=== PATIENT | male | born 1985 | race Caucasian/White ===

== ENCOUNTER → 2018-03-12 10:45 | Outpatient (CLI) | payer BC, SELFPAY | DX: L40.0 Psoriasis vulgaris (principal); Z79.899 Other long term (current) drug therapy | CPT/HCPCS: 36415 ==

== ENCOUNTER → 2018-09-09 11:09 | Outpatient (CLI) | payer BC, SELFPAY ==
[2018-09-09 13:51] LABS: Absolute Lymphocyte Count 1.41 X10^3/ul (0.83-4.51); Absolute Neutrophil Count 4.5 X10^3/uL (2.0-7.7); Basophil# 0.06 X10^3/uL; Basophil% 0.9 % (0-1); Eosinophil# 0.23 X10^3/uL; Eosinophils% 3.3 % (0-5); Hematocrit 38.6 % (40-54); Hemoglobin 12.5 g/dl (13.0-16.5); Lymphocyte # 1.41 X10^3/ul (4.0); Lymphocyte % 20.4 % (19-41); Mean Corp Hgb Conc 32.4 g/gl (32-36); Mean Corpuscular Hgb 27.8 pg (27.0-32.0); Mean Platelet Vol. 10.8 fl (6.2-12.0); Monocyte# 0.68 X10^3/uL; Monocyte% 9.8 % (0-10); Neutrophil # 4.49 X10^3/uL (2.7-7.7); Platelet Count 220 K/mm3 (150-450); RBC Distribution Width CV 13.3 % (11.6-14.6); RBC Distribution Width SD 40.9 fl (35.1-43.9); Red Blood Count 4.49 M/mm3 (4.6-6.2); White Blood Count 6.9 K/mm3 (4.4-11.0)
[2018-09-09 13:52] LABS: POSITIVE COUNT NO; POSITIVE DIFFERENTIAL NO; POSITIVE MORPHOLOGY NO
[2018-09-09 14:18] LABS: Anion Gap 6 (5-15); BUN 17 mg/dL (7-18); BUN/Creat Ratio 25.9 RATIO (10-20); Calcium,Total 8.6 mg/dL (8.5-10.1); Chloride 106 mmol/L (98-107); Creatinine, Serum 0.66 mg/dL (0.70-1.30); EST Glomerular Filtration Rate 149 mL/min (>60); Est Glom Filt Rate - Afr Amer 180 mL/min (>60); Glucose 86 mg/dL (74-106); Potassium 4.4 mmol/L (3.5-5.1); Sodium Level 141 mmol/L (136-145)
== END ==
PROVIDERS: Referring Provider Physician Assistant; Visit Provider Physician Assistant
DX: L40.0 Psoriasis vulgaris (principal); Z79.899 Other long term (current) drug therapy
CPT/HCPCS: 36415; 80048; 85025

== ENCOUNTER 2019-05-15 20:32 | Inpatient (IN) | payer BC, SELFPAY ==
[2019-05-15 20:36] VITALS: BP 185/98; PULSE 102; RESP 18; TEMP 37.8; O2SAT 97; BMI 72.5
[2019-05-15 21:37] VITALS: BP 158/77; PULSE 97; RESP 18; TEMP 37.4; O2SAT 98
[2019-05-15 21:46] LABS: Absolute Lymphocyte Count 1.05 X10^3/uL (0.83-4.51); Absolute Neutrophil Count 6.8 X10^3/uL (2.0-7.7); Basophil# 0.05 X10^3/uL; Basophil% 0.6 % (0-1); Eosinophil# 0.11 X10^3/uL; Eosinophils% 1.3 % (0-5); Hematocrit 36.7 % (40-54); Hemoglobin 11.8 g/dL (13.0-16.5); Lymphocyte # 1.05 X10^3/ul (4.0); Lymphocyte % 12.3 % (19-41); Mean Corp Hgb Conc 32.2 g/dL (32-36); Mean Corpuscular Hgb 28.2 pg (27.0-32.0); Mean Corpuscular Volume 87.6 fL (80-94); Mean Platelet Vol. 10.4 fl (6.2-12.0); Monocyte# 0.53 X10^3/uL; Monocyte% 6.2 % (0-10); NRBC Flagged by Analyzer 0 % (0-5); Neutrophil # 6.78 X10^3/uL (2.7-7.7); Platelet Count 196 K/mm3 (150-450); RBC Distribution Width CV 13.2 % (11.6-14.6); RBC Distribution Width SD 42.1 fl (35.1-43.9); Red Blood Count 4.19 M/mm3 (4.6-6.2); White Blood Count 8.6 K/mm3 (4.4-11.0)
[2019-05-15 21:55] LABS: Lactic Acid 1.3 mmol/L (0.4-1.9)
[2019-05-15 21:56] LABS: Anion Gap 5 (5-15); BUN 10 mg/dL (7-18); BUN/Creat Ratio 10.5 RATIO (10-20); Calcium,Total 8.7 mg/dL (8.5-10.1); Chloride 107 mmol/L (98-107); Creatinine, Serum 0.95 mg/dL (0.70-1.30); EST Glomerular Filtration Rate 96 mL/min (>60); Est Glom Filt Rate - Afr Amer 117 mL/min (>60); Estimated Creatinine Clearance 117.79 ml/min; Glucose 110 mg/dL (74-106); Potassium 3.9 mmol/L (3.5-5.1); Sodium Level 139 mmol/L (136-145)
--- NOTE | 2019-05-15 22:04 | ED.VISSUMM ---
- ER Visit Summary Date of Service: 05/15/19 Chief Complaint: Cellulitis History of Present Illness: The patient is a 33 M with right lower leg cellulitis that started 3 days ago. It started to the medial aspect and then progressed diffusely to his right lower leg. He is having fevers at home. He is not currently on antibiotics. Denies any history of this in the past. Physical Examination: Temperature 100, blood pressure 185/98 and heart rate 102. Patient has erythema to his right lower leg distal to the knee down through the ankle. Skin appears to be intact. No fluctuance or masses palpable. No crepitus. No necrosis. No skin sloughing. He is neurovascular intact distally. Test Results: Hemoglobin 11.8. Metabolic panel unremarkable. Lactate normal. Cultures pending. Emergency Department Course and Treatment: Patient has cellulitis with a fever. Heart rate 102. Septic work-up was pursued. Cultures pending. He was treated with Clinda. While evaluating and treating, his redness is spreading up his mid thigh and extending down into his foot. I believe the patient will benefit from IV antibiotics. I do not believe he will improve with oral antibiotics given the extensive nature of his cellulitis. He does not have necrosis or red flag features. Nothing to suggest abscess. I contacted the hospitalist. Treatment Plan: As above Disposition: Admission Impression: Right leg cellulitis This note was generated with [employer] dictation software. It may contain incorrect words, spelling, and punctuation that were not noted in review of the chart prior to signing ED Disposition - Plan for ED Patient: Referrals: Miguel Ángel Baird MD [Primary Care Provider] -
--- NOTE | 2019-05-15 22:50 | HP.PCM_ITS ---
Problem List (1) Cellulitis Status: Acute Qualifiers: Site of cellulitis: extremity Site of cellulitis of extremity: lower extremity Laterality: right Qualified Code(s): L03.115 - Cellulitis of right lower limb (2) ALICE (obstructive sleep apnea) Status: Chronic (3) Morbid obesity with BMI of 70 and over, adult Status: Chronic History of Present Illness Date of Admission: 05/15/19 Chief Complaint: Right lower extremity, swelling, erythema, fever, chills - 3 days The patient is a 33 year old M past medical history of ALICE, psoriasis who comes in with complaints of right lower extremity swelling, erythema, fever and chills. Patient has psoriasis all over his body, worse on his feet and soles. He usually gets cracks in his skin especially on his feet in the plantar surface from his psoriasis. He noticed redness of right leg as well as fever and chills. He has also vomited about twice today. No dizziness or chest pain or palpitations or diarrhea. He recently was treated for influenza by his primary care doctor. No more upper respiratory symptoms. Vitals in the ED showed temp 100.0F, HR 102, BP 185/98, RR 18, Spo2 98% on RA. WBC 8.6, Hb 11.8, Plt 196, BMP is unremarkable. Past Medical History Past Medical History (Chronic Problems): Chronic Problems ALICE (obstructive sleep apnea) (Chronic) Morbid obesity with BMI of 70 and over, adult (Chronic) Allergies PITTED FRUIT Allergy (Uncoded 05/15/19 20:38) Other Home Medications: Ambulatory Orders Medication Instructions Recorded NK 05/15/19 Surgical History: - - right knee surgery, hand surgery after trauma Psychiatric History: No pertinent psych hx Lives: Spouse/ Significant Other Smoking Status: Never smoker Tobacco Use: Non-smoker Alcohol: None Drugs: None - *Family History Maternal History Items: Diabetes Paternal History Items: Diabetes Sibling History Items: No pertinent history Review of Systems Constitutional: Reports: Chills, Fever, Malaise, Weakness, Fatigue. Denies: Anorexia, Weight Change Eyes: Denies: Blurred vision, Cataracts, Conjunctivae Inflammation, Pain, Redness HEENT: Denies: Difficulty Hearing, Difficulty Swallowing, Head Aches, Hearing Changes, Sinus Congestion, Sinus Drainage, Sore Throat Cardiovascular: Denies: Chest Pain, Claudication, Orthopnea, Palpitations, Paroxysmal Noc. Dyspnea Respiratory: Denies: Cough, Hemoptysis, Shortness of breath at rest, Shortness of breath upon exertion, Sputum production Gastrointestinal: Reports: Nausea, Vomiting. Denies: Abdominal Pain, Constipation, Hematemesis, Hematochezia Genitourinary: Denies: Dysuria, Incontinence, Nocturia Musculoskeletal: Denies: Joint Pain, Joint Tenderness Skin: Denies: Pruritis, Rash, Wounds Neurological: Denies: Difficulty swallowing, Focal weakness, Numbness, Tingling Psychiatric: Denies: Anxiety, Depression, Homicidal Ideations, Suicidal Ideations Hematologic/ Lymphatic: Denies: Easy Bruising, Easy Bleeding VTE Information - Inpt Only VTE Present on Admission: No VTE Pharm Prophylaxis ordered?: Yes Patient Problems: Active and Suspected Problems Cellulitis (Acute) - Physical Exam Vitals/I&O's: Vital Signs Temp Pulse Resp BP Pulse Ox 99.4 F H 97 18 158/77 H 98 05/15/19 21:37 05/15/19 21:37 05/15/19 21:37 05/15/19 21:37 05/15/19 21:37 Oxygen Delivery Method Room Air Weight: 235.868 kg Body Mass Index (BMI) 72.5 General: Alert, Oriented x3, Cooperative, No apparent distress, - - super morbidly obese HEENT: Atraumatic, PERRLA, EOMI, Normocephalic Oral: Moist Mucosa Neck: Supple Lungs: Clear to auscultation, Normal air movement Cardiovascular: Regular rate, Regular Rhythm, Normal S1, Normal S2, No murmurs Abdomen: Bowel Sounds Present, Soft, Non Tender, Non-Distended, No Hepato- splenomegaly Extremities: Edema - erythema of the right anteromedial leg, up the the proximal medial aspect of thight, warm to touch, crackles at the sole of feet Skin: No rashes, No breakdown Musculoskeletal: No Tenderness to Palpation of Joints or Extremities Lymphatic: No Cervical, Supraclavicular, or Inguinal Adenopathy Neurological: Cranial nerves II-XII grossly intact, Neuro grossly intact Psych/Mental Status: Normal Affect, Appropriate Laboratory Results 05/15/19 21:25: WBC 8.6, RBC 4.19 L, Hgb 11.8 L, Hct 36.7 L, MCV 87.6, MCH 28.2, MCHC 32.2, RDW Std Deviation 42.1, RDW Coeff of Yanni 13.2, Plt Count 196, MPV 10.4, Immature Gran % (Auto) 0.600, Neut % (Auto) 79.0 H, Lymph % (Auto) 12.3 L, [place] % (Auto) 6.2, Eos % (Auto) 1.3, Baso % (Auto) 0.6, Absolute Neuts (auto) 6.8, Absolute Lymphs (auto) 1.05, Nucleated RBC % 0 05/15/19 21:25: Sodium 139, Potassium 3.9, Chloride 107, Carbon Dioxide 27.0, Anion Gap 5, BUN 10, Creatinine 0.95, Estim Creat Clear Calc 117.79, Est GFR (MDRD) Af Amer 117, Est GFR (MDRD) Non-Af 96, BUN/Creatinine Ratio 10.5, Glucose 110 H, Calcium 8.7 05/15/19 21:25: Lactic Acid 1.3 Assessment/Plan All Active Problems Cellulitis (Acute) 33 year old M past medical history of ALICE, psoriasis who comes in with complaints of right lower extremity swelling, erythema, fever and chills. 1. Acute cellulitis in a patient with psoriasis, severe Likely nidus of infection are the cracks in feet especially on the plantar surface of right great toe Started on IV clindamycin Will switch to IV cefazolin 2g Q8, elevate extremity Will check HgbA1c 2. Uncontrolled BP, no diagnosis of hypertension, likely related to pain Will monitor for now, consider treatment if persistently elevated 3. ALICE on Bipap 4. Psoriasis 5. Super morbid obesity, BMI 72.5, lifestyle modification recommended, may qualify for bariatric surgery. 6. DVT PPx- Lovenox SC BID Code Visit Inpatient E&M: 58989 Init Hosp L2
[2019-05-15 23:19] VITALS: BP 157/90; PULSE 96; RESP 20; TEMP 38.8; O2SAT 100
[2019-05-15 23:20] VITALS: BMI 72.5
[2019-05-15 23:34] VITALS: BMI 72.5
[2019-05-15] MEDS: Cefazolin 2 GM in 0.9% Normal Saline 100 ML IV (23:41)
[2019-05-15] MEDS: 0.9% Normal Saline 1,000 ML 125 ML IV (23:42)
[2019-05-15] MEDS: Acetaminophen 325 MG Tablet 650 MG PO (23:42)
[2019-05-16] VITALS (10 sets, daily range): BP systolic 126–151; BP diastolic 69–88; PULSE 58–95; RESP 16–20; TEMP 36.5–37.3; O2SAT 95–99
[2019-05-16 00:06] LABS: Hemoglobin A1c 5.9 % (4.2-6.3)
[2019-05-16] MEDS: Cefazolin 2 GM in 0.9% Normal Saline 100 ML IV ×3 (05:30→22:54)
[2019-05-16] MEDS: Morphine 2 MG/ML Syringe IV (05:48)
[2019-05-16] MEDS: 0.9% Saline Lock 10 ML Syringe IV (05:52)
[2019-05-16 07:32] LABS: Absolute Lymphocyte Count 1.18 X10^3/uL (0.83-4.51); Absolute Neutrophil Count 6.9 X10^3/uL (2.0-7.7); Basophil# 0.05 X10^3/uL; Basophil% 0.5 % (0-1); Eosinophil# 0.17 X10^3/uL; Eosinophils% 1.8 % (0-5); Hematocrit 35.7 % (40-54); Hemoglobin 11.3 g/dL (13.0-16.5); Lymphocyte # 1.18 X10^3/ul (4.0); Lymphocyte % 12.8 % (19-41); Mean Corp Hgb Conc 31.7 g/dL (32-36); Mean Corpuscular Hgb 27.9 pg (27.0-32.0); Mean Corpuscular Volume 88.1 fL (80-94); Mean Platelet Vol. 10.6 fl (6.2-12.0); Monocyte# 0.87 X10^3/uL; Monocyte% 9.4 % (0-10); NRBC Flagged by Analyzer 0 % (0-5); Neutrophil # 6.88 X10^3/uL (2.7-7.7); Neutrophil % 74.5 % (47-70); Platelet Count 185 K/mm3 (150-450); RBC Distribution Width CV 13.3 % (11.6-14.6); Red Blood Count 4.05 M/mm3 (4.6-6.2); White Blood Count 9.2 K/mm3 (4.4-11.0)
[2019-05-16 08:02] LABS: ALB/GLOB Ratio 0.6 RATIO (0.9-2.4); AST(SGOT) 12 U/L (15-37); Alanine Aminotransfer ALT/SGPT 28 U/L (16-61); Albumin, Serum 2.7 g/dL (3.2-5.0); Alkaline Phosphatase 54 U/L (45-117); Anion Gap 5 (5-15); BUN 11 mg/dL (7-18); Calcium,Total 8.5 mg/dL (8.5-10.1); Chloride 109 mmol/L (98-107); Creatinine, Serum 0.85 mg/dL (0.70-1.30); EST Glomerular Filtration Rate 111 mL/min (>60); Est Glom Filt Rate - Afr Amer 134 mL/min (>60); Estimated Creatinine Clearance 131.65 ml/min; Globulin 4.2 g/dL (2.2-4.2); Glucose 96 mg/dL (74-106); Potassium 3.7 mmol/L (3.5-5.1); Protein, Total 6.9 g/dL (6.4-8.2); Sodium Level 139 mmol/L (136-145)
[2019-05-16] MEDS: 0.9% Normal Saline 1,000 ML 125 ML IV (08:28)
--- NOTE | 2019-05-16 10:41 | PCM.PN.HOSP ---
Patient Problems: Active and Suspected Problems Cellulitis (Acute) Subjective: Patient seen and examined. He was admitted with a complaint of swelling and redness of his RLE. He has psoriasis is largely well controlled on Stelara although he still has residual plaques on the soles of his feet. He said redness and swelling of his right lower extremity for 4 days prior to admission; he denies any trauma to his LEs, but says there plaques on his stools with clots. He had associated fever and chills but states is better now. Labs and vitals reviewed. Temperature is 99.1 this morning with pulse rate of 86 and respiratory rate of 16. white Cell count is 9.2. Vitals/I&O's: Vital Signs Temp Pulse Resp BP Pulse Ox 99.1 F 86 16 126/88 H 95 05/16/19 08:11 05/16/19 08:11 05/16/19 08:11 05/16/19 08:11 05/16/19 08:11 Oxygen Delivery Method Room Air Weight: 520 lb Body Mass Index (BMI) 72.5 Intake and Output for Last 24 Hours 05/14/19 05/15/19 05/16/19 23:59 23:59 23:59 Intake Total 56.08 / 56.08 1584.58 / 1584.58 Output Total 500 / 500 Balance 56.08 / 56.08 1084.58 / 1084.58 General: Alert, Oriented x3, Cooperative, No apparent distress, - - super morbid obesity HEENT: Atraumatic, PERRLA, EOMI, Normocephalic Oral: Moist Mucosa Neck: Supple, No JVD, Negative Carotid Bruits Lungs: Clear to auscultation, Normal air movement Cardiovascular: Regular rate, Regular Rhythm, Normal S1, Normal S2, No murmurs Abdomen: Bowel Sounds Present, Soft, Non Tender, Non-Distended, No Hepato-splenomegaly Skin: - - RLE erythematous from ankle to just below knee. scaly plaques on the soles of his feet, with cracks in skin on right sole. Musculoskeletal: No Tenderness to Palpation of Joints or Extremities Lymphatic: No Cervical, Supraclavicular, or Inguinal Adenopathy Neurological: Cranial nerves II-XII grossly intact, Neuro grossly intact, Motor Exam 5/5 strength throughout Psych/Mental Status: Normal Affect, Appropriate, Alert and oriented to time, place, person, mood and affect Laboratory Results 05/15/19 21:25: WBC 8.6, RBC 4.19 L, Hgb 11.8 L, Hct 36.7 L, MCV 87.6, MCH 28.2, MCHC 32.2, RDW Std Deviation 42.1, RDW Coeff of Yanni 13.2, Plt Count 196, MPV 10.4, Immature Gran % (Auto) 0.600, Neut % (Auto) 79.0 H, Lymph % (Auto) 12.3 L, [place] % (Auto) 6.2, Eos % (Auto) 1.3, Baso % (Auto) 0.6, Absolute Neuts (auto) 6.8, Absolute Lymphs (auto) 1.05, Nucleated RBC % 0 05/15/19 21:25: Sodium 139, Potassium 3.9, Chloride 107, Carbon Dioxide 27.0, Anion Gap 5, BUN 10, Creatinine 0.95, Estim Creat Clear Calc 117.79, Est GFR (MDRD) Af Amer 117, Est GFR (MDRD) Non-Af 96, BUN/Creatinine Ratio 10.5, Glucose 110 H, Calcium 8.7 05/15/19 21:25: Lactic Acid 1.3 05/15/19 21:25: Hemoglobin A1c 5.9 05/16/19 06:06: WBC 9.2, RBC 4.05 L, Hgb 11.3 L, Hct 35.7 L, MCV 88.1, MCH 27.9, MCHC 31.7 L, RDW Std Deviation 43.0, RDW Coeff of Yanni 13.3, Plt Count 185, MPV 10.6, Immature Gran % (Auto) 1.000 H, Neut % (Auto) 74.5 H, Lymph % (Auto) 12.8 L, [place] % (Auto) 9.4, Eos % (Auto) 1.8, Baso % (Auto) 0.5, Absolute Neuts (auto) 6.9, Absolute Lymphs (auto) 1.18, Nucleated RBC % 0 05/16/19 06:06: Sodium 139, Potassium 3.7, Chloride 109 H, Carbon Dioxide 25.0, Anion Gap 5, BUN 11, Creatinine 0.85, Estim Creat Clear Calc 131.65, Est GFR (MDRD) Af Amer 134, Est GFR (MDRD) Non-Af 111, BUN/Creatinine Ratio 13.0, Glucose 96, Calcium 8.5, Total Bilirubin 0.50, AST 12 L, ALT 28, Alkaline Phosphatase 54, Total Protein 6.9, Albumin 2.7 L, Globulin 4.2, Albumin/Globulin Ratio 0.6 L Current Medications Acetaminophen (Tylenol) 650 mg PO Q6H PRN PRN PRN Reason: Pain Score 1-3/Temp > 100.7 F Last Admin: 05/15/19 23:42 Dose: 650 mg Documented by: Al Hydroxide/Mg Hydroxide (Mylanta Ii) 30 ml PO Q6H PRN PRN PRN Reason: Gastric Burning Albuterol Sulfate (Ventolin Aerosols) 2.5 mg INHALATION Q2H PRN PRN PRN Reason: Shortness of Breath/Wheezing Enoxaparin Sodium (Lovenox) 40 mg SC BID [facility] Sodium Chloride () 1,000 mls @ 125 mls/hr IV .Q8H [facility] Stop: 05/16/19 11:03 Last Admin: 05/16/19 08:28 Dose: 125 mls/hr Documented by: Cefazolin Sodium 2 gm/ Sodium (Chloride) 110 mls @ 150 mls/hr IV Q8 [facility] Last Infusion: 05/16/19 06:22 Dose: Infused Documented by: Sodium Chloride () 250 mls @ 15 mls/hr IV .[id number] PRN PRN Reason: Saline Flush Sodium Chloride () 250 mls @ 15 mls/hr IV .[id number] PRN PRN Reason: Additional IVPB Infusion Morphine Sulfate () 2 mg IV Q3H PRN PRN PRN Reason: Pain Score 6-10/10 Last Admin: 05/16/19 05:48 Dose: 2 mg Documented by: Ondansetron HCl (Zofran) 4 mg IV Q8H PRN PRN PRN Reason: NAUSEA/VOMITING Oxycodone HCl (Oxyir) 5 mg PO Q4H PRN PRN PRN Reason: Pain Score 4-5/10 Sodium Chloride () 10 - 40 ml IV UD PRN PRN Reason: SALINE FLUSH Last Admin: 05/16/19 05:52 Dose: 10 ml Documented by: STROKE Vital Signs/Narrative: Vital Signs Temp Pulse Resp BP Pulse Ox 05/16/19 08:11 99.1 F 86 16 126/88 H 95 Medical Necessity - Tobacco Use Smoking Status: Never smoker Tobacco Use: Non-smoker Assessment/Plan All Active Problems Cellulitis (Acute) 1. Cellulitis of the RLE Patient has cellulitis and is likely that scratching his soles where he has the plaques it was a nidus for cellulitis. On IV cefazolin. Has no leukocytosis. Duplex of right lower extremity is pending. 2. Elevated blood pressure Has no known diagnosis of hypertension. Blood pressure on admission was 185/98 but has trended down to 126/88 this morning. Sinew monitoring. If blood pressure remains elevated, will consider starting blood pressure medication. 3. History of psoriasis: On Stelara once every 3 months. 4. ALICE: On BiPAP. 5. Super morbid obesity: BMI 72.5. Complicates acute care, expected recovery and prognosis. DVT Prophylaxis: Lovenox 40 mg twice daily. Code Visit Inpatient E&M: 32125 Subs Hosp L2
[2019-05-16] MEDS: Enoxaparin 40 MG/0.4 ML Syringe SC ×2 (11:17→22:54)
[2019-05-16] MEDS: Acetaminophen 325 MG Tablet 650 MG PO (17:29)
[2019-05-17] VITALS (9 sets, daily range): BP systolic 133–160; BP diastolic 80–91; PULSE 81–111; RESP 16; TEMP 36.8–37.4; O2SAT 96–100
[2019-05-17] MEDS: Acetaminophen 325 MG Tablet 650 MG PO ×3 (00:20→23:20)
[2019-05-17] MEDS: Cefazolin 2 GM in 0.9% Normal Saline 100 ML IV ×3 (05:37→22:00)
[2019-05-17 06:13] LABS: Absolute Lymphocyte Count 1.31 X10^3/uL (0.83-4.51); Absolute Neutrophil Count 6.1 X10^3/uL (2.0-7.7); Basophil# 0.05 X10^3/uL; Basophil% 0.6 % (0-1); Eosinophil# 0.25 X10^3/uL; Eosinophils% 2.8 % (0-5); Hemoglobin 10.9 g/dL (13.0-16.5); Lymphocyte # 1.31 X10^3/ul (4.0); Lymphocyte % 14.9 % (19-41); Mean Corp Hgb Conc 32.1 g/dL (32-36); Mean Corpuscular Hgb 27.9 pg (27.0-32.0); Mean Platelet Vol. 9.9 fl (6.2-12.0); Monocyte# 0.96 X10^3/uL; Monocyte% 10.9 % (0-10); NRBC Flagged by Analyzer 0 % (0-5); Neutrophil # 6.12 X10^3/uL (2.7-7.7); Neutrophil % 69.5 % (47-70); Platelet Count 184 K/mm3 (150-450); RBC Distribution Width CV 13.4 % (11.6-14.6); Red Blood Count 3.91 M/mm3 (4.6-6.2); White Blood Count 8.8 K/mm3 (4.4-11.0)
[2019-05-17 06:37] LABS: Anion Gap 7 (5-15); BUN 10 mg/dL (7-18); BUN/Creat Ratio 12.3 RATIO (10-20); Calcium,Total 8.5 mg/dL (8.5-10.1); Chloride 108 mmol/L (98-107); Creatinine, Serum 0.82 mg/dL (0.70-1.30); EST Glomerular Filtration Rate 115 mL/min (>60); Est Glom Filt Rate - Afr Amer 140 mL/min (>60); Estimated Creatinine Clearance 136.47 ml/min; Glucose 102 mg/dL (74-106); Potassium 3.7 mmol/L (3.5-5.1); Sodium Level 141 mmol/L (136-145)
--- NOTE | 2019-05-17 07:15 | VDLE_ITS ---
Reason For Study: Pain RIGHT GSV is normal. FV is compressible, spontaneous, phasic, competent and demonstrates normal augmentation. POP V is compressible, spontaneous, phasic, competent and demonstrates normal augmentation. T/P Trunk is compressible. CFV, SFJ, FV distal and PeroV not visualized due to pt body habitus. FV mid and PTV only visualized with color and appear patent. Procedure Exam performed portable in patient room. Limited views were obtained. The study was technically difficult. A preliminary report was called and/or faxed to MS3 RN. Interpretation Summary Right great saphenous vein appears patent and compressible segmentally. Very limited examination secondary to body habitus Right common femoral, distal femoral, peroneal deep veins and saphenofemoral junction not visualized. No evidence for deep venous thrombosis in structures seen. Ordering Physician: Delisa Dawson Referring Physician: Alex Baird Performed By: Vandana Capone RVT
[2019-05-17] MEDS: oxyCODONE 5 MG Tablet PO ×3 (09:42→23:19)
[2019-05-17] MEDS: Enoxaparin 40 MG/0.4 ML Syringe SC ×2 (09:43→22:00)
--- NOTE | 2019-05-17 11:20 | PCM.PN.HOSP ---
Patient Problems: Active and Suspected Problems Cellulitis (Acute) Subjective: Seen and examined. He states redness of his right lower extremity is improving but he does have calf pain. He denies any fever or chills and review of systems otherwise negative. Of note, duplex of right lower extremity ordered on admission 2 days ago was not done because according to charge nurse, order was not put in as a stat order. Order changed to start order today. Labs and vitals reviewed. Vitals/I&O's: Vital Signs Temp Pulse Resp BP Pulse Ox 99.1 F 84 16 160/91 H 97 05/17/19 09:40 05/17/19 09:40 05/17/19 09:40 05/17/19 09:40 05/17/19 09:40 Oxygen Delivery Method Room Air Weight: 520 lb 1.127 oz Body Mass Index (BMI) 72.5 Intake and Output for Last 24 Hours 05/15/19 05/16/19 05/17/19 23:59 23:59 23:59 Intake Total 56.08 / 56.08 2458.75 / 2458.75 110 / 110 Output Total 500 / 500 Balance 56.08 / 56.08 1958.75 / 1958.75 110 / 110 General: Alert, Oriented x3, Cooperative, No apparent distress, - - super morbid obesity HEENT: Atraumatic, PERRLA, EOMI, Normocephalic Oral: Moist Mucosa Neck: Supple, No JVD, Negative Carotid Bruits Lungs: Clear to auscultation, Normal air movement Cardiovascular: Regular rate, Regular Rhythm, Normal S1, Normal S2, No murmurs Abdomen: Bowel Sounds Present, Soft, Non Tender, Non-Distended, No Hepato-splenomegaly Skin: - - RLE erythematous from ankle to just below knee; erythema is improving. scaly plaques on the soles of his feet, with cracks in skin on right sole. Musculoskeletal: mild right calf tenderness with palpation Lymphatic: No Cervical, Supraclavicular, or Inguinal Adenopathy Neurological: Cranial nerves II-XII grossly intact, Neuro grossly intact, Motor Exam 5/5 strength throughout Psych/Mental Status: Normal Affect, Appropriate, Alert and oriented to time, place, person, mood and affect Laboratory Results 05/17/19 06:00: WBC 8.8, RBC 3.91 L, Hgb 10.9 L, Hct 34.0 L, MCV 87.0, MCH 27.9, MCHC 32.1, RDW Std Deviation 42.0, RDW Coeff of Yanni 13.4, Plt Count 184, MPV 9.9, Immature Gran % (Auto) 1.300 H, Neut % (Auto) 69.5, Lymph % (Auto) 14.9 L, [place] % (Auto) 10.9 H, Eos % (Auto) 2.8, Baso % (Auto) 0.6, Absolute Neuts (auto) 6.1, Absolute Lymphs (auto) 1.31, Nucleated RBC % 0 05/17/19 06:00: Sodium 141, Potassium 3.7, Chloride 108 H, Carbon Dioxide 26.0, Anion Gap 7, BUN 10, Creatinine 0.82, Estim Creat Clear Calc 136.47, Est GFR (MDRD) Af Amer 140, Est GFR (MDRD) Non-Af 115, BUN/Creatinine Ratio 12.3, Glucose 102, Calcium 8.5 Current Medications Acetaminophen (Tylenol) 650 mg PO Q6H PRN PRN PRN Reason: Pain Score 1-3/Temp > 100.7 F Last Admin: 05/17/19 00:20 Dose: 650 mg Documented by: Al Hydroxide/Mg Hydroxide (Mylanta Ii) 30 ml PO Q6H PRN PRN PRN Reason: Gastric Burning Albuterol Sulfate (Ventolin Aerosols) 2.5 mg INHALATION Q2H PRN PRN PRN Reason: Shortness of Breath/Wheezing Enoxaparin Sodium (Lovenox) 40 mg SC BID [facility] Last Admin: 05/17/19 09:43 Dose: 40 mg Documented by: Cefazolin Sodium 2 gm/ Sodium (Chloride) 110 mls @ 150 mls/hr IV Q8 [facility] Last Infusion: 05/17/19 06:21 Dose: Infused Documented by: Sodium Chloride () 250 mls @ 15 mls/hr IV .[id number] PRN PRN Reason: Saline Flush Sodium Chloride () 250 mls @ 15 mls/hr IV .[id number] PRN PRN Reason: Additional IVPB Infusion Morphine Sulfate () 2 mg IV Q3H PRN PRN PRN Reason: Pain Score 6-10/10 Last Admin: 01/11/20 05:48 Dose: 2 mg Documented by: Ondansetron HCl (Zofran) 4 mg IV Q8H PRN PRN PRN Reason: NAUSEA/VOMITING Oxycodone HCl (Oxyir) 5 mg PO Q4H PRN PRN PRN Reason: Pain Score 4-5/10 Last Admin: 05/17/19 09:42 Dose: 5 mg Documented by: Sodium Chloride () 10 - 40 ml IV UD PRN PRN Reason: SALINE FLUSH Last Admin: 05/16/19 05:52 Dose: 10 ml Documented by: STROKE Vital Signs/Narrative: Vital Signs Temp Pulse Resp BP Pulse Ox 05/17/19 09:40 99.1 F 84 16 160/91 H 97 Medical Necessity - Tobacco Use Smoking Status: Never smoker Tobacco Use: Non-smoker Assessment/Plan All Active Problems Cellulitis (Acute) 1. Cellulitis of the RLE redness is improving, but patient says he has pain in right calf today on IV cefazolin; no leucocytosis Duplex of RLE not done yet as it wasnt ordered stat on admission, in order to get it done on the weekend. will switch Duplex order to stat to rule out a PE- Duplex done today and is negative. 2. Elevated blood pressure Has no known diagnosis of hypertension. Blood pressure on admission was 185/98 BP is 160/91 this morning. BP has mainly been in 160s-180s systolic will start patient on PO amlodipine 10mg daily 3. History of psoriasis: On Stelara once every 3 months. 4. ALICE: On BiPAP. 5. Super morbid obesity: BMI 72.5. Complicates acute care, expected recovery and prognosis. DVT Prophylaxis: Lovenox 40 mg twice daily. Code Visit Inpatient E&M: 90910 Subs Hosp L2
[2019-05-17] MEDS: 0.9% Saline Lock 10 ML Syringe IV ×3 (13:47→22:03)
[2019-05-18 03:49] VITALS: PULSE 76
[2019-05-18] MEDS: Cefazolin 2 GM in 0.9% Normal Saline 100 ML IV (06:02)
[2019-05-18] MEDS: oxyCODONE 5 MG Tablet PO (06:02)
[2019-05-18] MEDS: Acetaminophen 325 MG Tablet 650 MG PO (06:02)
[2019-05-18] MEDS: 0.9% Saline Lock 10 ML Syringe IV (06:03)
[2019-05-18 06:04] LABS: Absolute Lymphocyte Count 1.49 X10^3/uL (0.83-4.51); Absolute Neutrophil Count 7.6 X10^3/uL (2.0-7.7); Basophil# 0.05 X10^3/uL; Basophil% 0.5 % (0-1); Eosinophil# 0.29 X10^3/uL; Eosinophils% 2.7 % (0-5); Hemoglobin 10.2 g/dL (13.0-16.5); Lymphocyte # 1.49 X10^3/ul (4.0); Lymphocyte % 13.8 % (19-41); Mean Corp Hgb Conc 31.9 g/dL (32-36); Mean Corpuscular Hgb 27.4 pg (27.0-32.0); Mean Platelet Vol. 9.6 fl (6.2-12.0); Monocyte# 1.05 X10^3/uL; Monocyte% 9.8 % (0-10); NRBC Flagged by Analyzer 0 % (0-5); Neutrophil # 7.57 X10^3/uL (2.7-7.7); Neutrophil % 70.3 % (47-70); Platelet Count 198 K/mm3 (150-450); RBC Distribution Width CV 13.6 % (11.6-14.6); RBC Distribution Width SD 42.9 fl (35.1-43.9); Red Blood Count 3.72 M/mm3 (4.6-6.2); White Blood Count 10.8 K/mm3 (4.4-11.0)
[2019-05-18 06:12] VITALS: BP 150/81; PULSE 85; RESP 16; TEMP 36.9; O2SAT 98
[2019-05-18 06:17] LABS: Anion Gap 6 (5-15); BUN 9 mg/dL (7-18); BUN/Creat Ratio 13.4 RATIO (10-20); Calcium,Total 8.5 mg/dL (8.5-10.1); Chloride 105 mmol/L (98-107); Creatinine, Serum 0.67 mg/dL (0.70-1.30); EST Glomerular Filtration Rate 144 mL/min (>60); Est Glom Filt Rate - Afr Amer 174 mL/min (>60); Estimated Creatinine Clearance 167.02 ml/min; Glucose 98 mg/dL (74-106); Potassium 3.9 mmol/L (3.5-5.1); Sodium Level 138 mmol/L (136-145)
--- NOTE | 2019-05-18 09:10 | DCINST_ITS ---
- Discharge Diagnoses Current Active Problems: Current Active and Chronic Problems Cellulitis (Acute) ALICE (obstructive sleep apnea) (Chronic) Morbid obesity with BMI of 70 and over, adult (Chronic) You will use the following diet at home:: No restrictions Discharge Activity: Return to Normal Activity Allergies/Adverse Reactions: Allergies PITTED FRUIT Allergy (Uncoded 05/15/19 20:38) Other Medications to take at Discharge Ustekinumab [Stelara] 90 mg IM 05/15/19 Cephalexin [Keflex] 500 mg PO Q6 #20 cap 05/18/19 The following prescriptions were given: Cephalexin [Keflex] 500 mg PO Q6 #20 cap Transmission Status: Pending to [facility]1954 [facility] Primary Care Physician: Miguel Ángel Baird MD [Primary Care Provider] - Please follow up with your Primary Care Physician in: in 2-3 days Test Results: Test results from this visit will be discussed in further detail at your follow- up appointment, if applicable. Proposed Discharge Date: 05/18/19
--- NOTE | 2019-05-18 09:12 | PCM.DC.SUM ---
Discharge Date and Diagnosis - Problem List Patient Problems: Active and Suspected Problems Cellulitis (Acute) Date of Admission: 05/15/19 Date of Discharge: 05/18/19 - Primary Discharge Diagnosis Active and Suspected Problems Cellulitis (Acute) - Secondary Discharge Diagnosis Chronic Problems ALICE (obstructive sleep apnea) (Chronic) Morbid obesity with BMI of 70 and over, adult (Chronic) Hospital Course and Treatment Summary of Care Provided: The patient is a 33 year old M erythema and warmth involving the right lower extremity 1. Cellulitis involving the right lower extremity ?Patient admitted to regular nursing floor managed with cefazolin. Underwent duplex ultrasound involving the right lower extremity which was negative for DVT. Patient did respond to treatment was discharged home on Keflex 500 mg p.o. 4 times daily for 5 more days. Patient was instructed to follow-up with his primary care physician in 2 to 3 days and to present back to the ED if his erythema worsened or he developed fever 2. Elevated blood pressure ?Patient also known hypertensive blood pressure was markedly elevated started on amlodipine 10 mg daily 3. History of psoriasis ?Patient is on Stelara and as outpatient 4. Morbid obesity with BMI of 72 ?Weight loss advised 5. Obstructive sleep apnea ?On BiPAP 6. DVT prophylaxis SC Lovenox 1 Patient Problems: Active and Suspected Problems Cellulitis (Acute) - Physical Exam Vitals/I&O's: Vital Signs Temp Pulse Resp BP Pulse Ox 98.5 F 85 16 150/81 H 98 05/18/19 06:12 05/18/19 06:12 05/18/19 06:12 05/18/19 06:12 05/18/19 06:12 Oxygen Delivery Method Room Air Weight: 235.9 kg Body Mass Index (BMI) 72.5 Intake and Output for Last 24 Hours 05/16/19 05/17/19 05/18/19 23:59 23:59 23:59 Intake Total 2458.75 / 2458.75 342.25 / 342.25 113.75 / 113.75 Output Total 500 / 500 Balance 1958.75 / 1958.75 342.25 / 342.25 113.75 / 113.75 General: Alert HEENT: Atraumatic Oral: Moist Mucosa Neck: Supple Cardiovascular: Regular rate Extremities: - - Erythema involving the right lower extremity Microbiology Past 72 Hours 05/15/19 21:45 Blood Culture (Wb) - Right Wrist Blood Culture - Preliminary No growth in 48 hours. 05/15/19 21:25 Blood Culture (Wb) - Anticubital Right Blood Culture - Preliminary No growth in 48 hours. Laboratory Results 05/18/19 05:45: WBC 10.8, RBC 3.72 L, Hgb 10.2 L, Hct 32.0 L, MCV 86.0, MCH 27.4, MCHC 31.9 L, RDW Std Deviation 42.9, RDW Coeff of Yanni 13.6, Plt Count 198, MPV 9.6, Immature Gran % (Auto) 2.900 H, Neut % (Auto) 70.3 H, Lymph % (Auto) 13.8 L, [place] % (Auto) 9.8, Eos % (Auto) 2.7, Baso % (Auto) 0.5, Absolute Neuts (auto) 7.6, Absolute Lymphs (auto) 1.49, Nucleated RBC % 0 05/18/19 05:45: Sodium 138, Potassium 3.9, Chloride 105, Carbon Dioxide 27.0, Anion Gap 6, BUN 9, Creatinine 0.67 L, Estim Creat Clear Calc 167.02, Est GFR (MDRD) Af Amer 174, Est GFR (MDRD) Non-Af 144, BUN/Creatinine Ratio 13.4, Glucose 98, Calcium 8.5 Current Medications Acetaminophen (Tylenol) 650 mg PO Q6H PRN PRN PRN Reason: Pain Score 1-3/Temp > 100.7 F Last Admin: 05/18/19 06:02 Dose: 650 mg Documented by: Al Hydroxide/Mg Hydroxide (Mylanta Ii) 30 ml PO Q6H PRN PRN PRN Reason: Gastric Burning Albuterol Sulfate (Ventolin Aerosols) 2.5 mg INHALATION Q2H PRN PRN PRN Reason: Shortness of Breath/Wheezing Enoxaparin Sodium (Lovenox) 40 mg SC BID [facility] Last Admin: 05/17/19 22:00 Dose: 40 mg Documented by: Cefazolin Sodium 2 gm/ Sodium (Chloride) 110 mls @ 150 mls/hr IV Q8 HEIKE Last Infusion: 05/18/19 06:46 Dose: Infused Documented by: Sodium Chloride () 250 mls @ 15 mls/hr IV .[id number] PRN PRN Reason: Saline Flush Last Infusion: 05/18/19 07:01 Dose: 0 mls/hr Documented by: Sodium Chloride () 250 mls @ 15 mls/hr IV .[id number] PRN PRN Reason: Additional IVPB Infusion Morphine Sulfate () 2 mg IV Q3H PRN PRN PRN Reason: Pain Score 6-10/10 Last Admin: 05/16/19 05:48 Dose: 2 mg Documented by: Ondansetron HCl (Zofran) 4 mg IV Q8H PRN PRN PRN Reason: NAUSEA/VOMITING Oxycodone HCl (Oxyir) 5 mg PO Q4H PRN PRN PRN Reason: Pain Score 4-5/10 Last Admin: 05/18/19 06:02 Dose: 5 mg Documented by: Sodium Chloride () 10 - 40 ml IV UD PRN PRN Reason: SALINE FLUSH Last Admin: 05/18/19 06:03 Dose: 20 ml Documented by: Discharge Diet: No Restrictions Discharge Activity: Return to Normal Activity Home Medications: Medications to take at Discharge Ustekinumab [Stelara] 90 mg IM 05/15/19 Amlodipine [Norvasc] 10 mg PO DAILY #90 tab 05/18/19 Cephalexin [Keflex] 500 mg PO Q6 #20 cap 05/18/19 Following Prescrptions Were Given to Patient: Cephalexin [Keflex] 500 mg PO Q6 #20 cap Transmission Status: Pending to [facility] Amlodipine [Norvasc] 10 mg PO DAILY #90 tab Transmission Status: Pending to [facility] Primary Care Physician: Miguel Ángel Baird MD [Primary Care Provider] - Please follow up with your Primary Care Physician in: in 2-3 days Disposition: Home Minutes spent on discharge:: 35 Patient Condition:: Stable Medical Necessity - Tobacco Use Smoking Status: Never smoker Tobacco Use: Non-smoker Meaningful Use Info Meaningful Use Diagnoses (Choose all that apply): None applicable Code Visit Inpatient E&M: 13949 Disch Hosp
[2019-05-18 09:54] VITALS: PULSE 88
--- NOTE | 2019-05-18 10:15 | CASEMGMT ---
RN SYDNIE Face to Face with patient for initial transition planning/care coordination assessment. RN CM introduced self and role at [facility]. Patient lying in bed, alert and oriented. Patient willing to participate in assessment and is able to answer all questions appropriately. Care providers, pharmacy, and demographics verified. Patient wishes to discharge home, denies need for home health at this time. Patient states he has no further needs or concerns at this time. CM to follow for discharge planning needs that may arise. PCP: Brie Specialists: [facility] Preferred Pharmacy: [facility] Insurance: [place] Prescription Benefit: yes Living Will/HPOA: none LNOK: Living Arrangements: Patient lives with in 1 story home. Patient independent at home. Transportation: self/ DME/HHC: Patient has bipap at home. Patient denies need for HHC. Disposition Plan: Patient to discharge home with family support and follow-up plans in place. Vandana IBANEZ, RN, CM
--- NOTE | 2019-05-18 10:39 | PCM.WORK.EX ---
Work/School Excuse Work/School Excuse for:: Patient Please excuse this person from:: Work From: 05/15/19 through: 05/21/19
[2019-05-18 11:24] VITALS: BP 152/93; PULSE 83; RESP 18; TEMP 36.2; O2SAT 98
== END 2019-05-18 11:58 | disposition home or self-care (01) | DRG 603 ==
LOC: ED 21:12 → MS3 22:58
PROVIDERS: Student in an Organized Health Care Education/Training Program; Admitting Provider Internal Medicine; Emergency Provider Emergency Medicine; Family Provider Family Medicine; PCP Family Medicine; Referring Provider Internal Medicine; Visit Provider Internal Medicine
DX: L03.115 Cellulitis of right lower limb (principal); Z68.45 Body mass index [BMI] 70 or greater, adult; L40.9 Psoriasis, unspecified; G47.33 Obstructive sleep apnea (adult) (pediatric); E66.01 Morbid (severe) obesity due to excess calories; I10 Essential (primary) hypertension
CPT/HCPCS: 36415; 80048; 80053; 83036; 83605; 85025; 87040; 93971; 97802; 99284; J7030; J7050; A4216

== ENCOUNTER 2019-08-29 10:49 | Inpatient (IN) | payer BC, SELFPAY ==
[2019-08-29] VITALS (8 sets, daily range): BP systolic 153–176; BP diastolic 68–94; PULSE 105–114; RESP 17–19; TEMP 37.1–39.5; O2SAT 95–100; BMI 73.0; BMI 73.1
[2019-08-29] MEDS: Acetaminophen 500 MG Tablet 1000 MG PO (11:11)
--- NOTE | 2019-08-29 11:27 | ED.DCSUM_ITS ---
- ER Visit Summary Date of Service: 08/29/19 Chief Complaint: Fever with right lower extremity redness History of Present Illness: The patient is a 33 M history of prior cellulitis with an admission in May of this year. Patient states he started getting a fever yesterday and noticed redness to his right lower extremity. He does have a history of psoriasis and is on Stelara. He denies any nausea vomiting or diarrhea. No cough. No dysuria. He is not diabetic. Physical Examination: Younger male no acute distress. Vital signs stable. Temperature 100.6. He does not look septic or toxic. He does not look dehydrated. H EENT exam unremarkable. Neck nontender. No lymphadenopathy. Lungs clear to auscultation bilaterally. Heart regular rhythm rate about 105 no murmur. Abdomen morbidly obese but soft. Nontender normal bowel sounds no peritoneal signs. Patient is moving all 4 extremities. He has mild swelling in his right lower extremity from below the knee to his foot. Consistent with cellulitis. There is really no tenderness. It is warm. It is slightly larger than the left leg. At present both lower extremities are neurovascular intact. Neurologically he is awake and alert with no focal motor deficits. Test Results: Patient's white blood cell count was 24,000. Hemoglobin 12. No bands. Chemistries potassium of 5.4. Gap of 9. Glucose 88. Creatinine 0.9. Lactic acid is 2.0. Blood cultures are pending. Emergency Department Course and Treatment: Patient appears to have recurrent cellulitis in his right lower extremity. Screening labs are being obtained. He will be started on cefazolin which she was treated with last time when he was hospitalized. Treatment Plan: Repeat exam patient is doing well at 1:40 PM. He will be admitted. I have already spoken to the hospitalist. Disposition: Admission Impression: Acute right lower extremity cellulitis Leukocytosis History of the same Fever Morbid obesity This note was generated with [employer] [employer] [facility] dictation software. It may contain incorrect words, spelling, and punctuation that were not noted in review of the chart prior to signing ED Disposition - Plan for ED Patient: Referrals: Miguel Ángel Baird MD [Primary Care Provider] -
[2019-08-29 12:44] LABS: Mean Corp Hgb Conc 32.4 g/dL (32-36); Mean Corpuscular Hgb 27.4 pg (27.0-32.0); Mean Corpuscular Volume 84.5 fL (80-94); Mean Platelet Vol. 10.3 fl (6.2-12.0); POSITIVE DIFFERENTIAL YES; POSITIVE MORPHOLOGY YES; Platelet Count 207 K/mm3 (150-450); RBC Distribution Width SD 43.3 fl (35.1-43.9); Red Blood Count 4.38 M/mm3 (4.6-6.2); White Blood Count 24.1 K/mm3 (4.4-11.0)
[2019-08-29] MEDS: Cefazolin 1 GM/50 ML BAG IV (12:46)
[2019-08-29 12:56] LABS: Anion Gap 9 (5-15); BUN 17 mg/dL (7-18); BUN/Creat Ratio 17.3 RATIO (10-20); Calcium,Total 9.3 mg/dL (8.5-10.1); Chloride 109 mmol/L (98-107); Creatinine, Serum 0.98 mg/dL (0.70-1.30); EST Glomerular Filtration Rate 93 mL/min (>60); Est Glom Filt Rate - Afr Amer 112 mL/min (>60); Estimated Creatinine Clearance 114.19 ml/min; Glucose 88 mg/dL (74-106); Potassium 5.4 mmol/L (3.5-5.1); Sodium Level 140 mmol/L (136-145)
[2019-08-29 12:58] LABS: Absolute Lymphocyte Count 0.96 X10^3/uL (0.83-4.51); Absolute Neutrophil Count 21.6 X10^3/uL (2.0-7.7); Basophil# 0.07 X10^3/uL; Basophil% 0.3 % (0-1); Differential Indicated SCAN CRITERIA MET; Eosinophil# 0.03 X10^3/uL; Eosinophils% 0.1 % (0-5); Lymphocyte # 0.96 X10^3/ul (4.0); Monocyte# 1.23 X10^3/uL; Monocyte% 5.1 % (0-10); Neutrophil # 21.63 X10^3/uL (2.7-7.7); Neutrophil % 89.8 % (47-70)
[2019-08-29 12:59] LABS: NRBC Flagged by Analyzer 0 % (0-5)
[2019-08-29 13:05] LABS: Differential Comment SCANNED
--- NOTE | 2019-08-29 13:37 | HP.PCM_ITS ---
Problem List (1) Cellulitis Status: Acute Qualifiers: Site of cellulitis: extremity Site of cellulitis of extremity: lower extremity Laterality: right Qualified Code(s): L03.115 - Cellulitis of right lower limb (2) Morbid obesity with BMI of 70 and over, adult Status: Chronic (3) ALICE (obstructive sleep apnea) Status: Chronic History of Present Illness Date of Admission: 08/29/19 Chief Complaint: Right lower extremity redness and warmth The patient is a 33 year old M with past medical history significant for morbid obesity with BMI of 73, psoriasis who presents with erythema and redness involving the right lower extremity. Patient symptoms started a day prior to coming in. In addition to the erythema and redness patient did experience subjective fever as well as chills. He was apparently on admission in May with similar presentation. In the emergency department and assessment of sepsis secondary to cellulitis involving the right lower extremity was made admitted to regular nursing floor for further management Past Medical History Past Medical History (Chronic Problems): Chronic Problems ALICE (obstructive sleep apnea) (Chronic) Morbid obesity with BMI of 70 and over, adult (Chronic) Allergies sulfamethoxazole [From Bactrim] Allergy (Verified 08/29/19 10:51) Hives trimethoprim [From Bactrim] Allergy (Verified 08/29/19 10:51) Hives PITTED FRUIT Allergy (Uncoded 08/29/19 10:51) SCRATCHY THROAT Home Medications: Ambulatory Orders Medication Instructions Recorded Ustekinumab [Stelara] 90 mg IM 05/15/19 Surgical History: - - right knee surgery, hand surgery after trauma Psychiatric History: No pertinent psych hx Smoking Status: Never smoker - *Family History Maternal History Items: Diabetes Paternal History Items: Diabetes Sibling History Items: No pertinent history Review of Systems Constitutional: Reports: Chills, Fever HEENT: Denies: Head Aches, Sinus Congestion, Sinus Drainage Cardiovascular: Denies: Chest Pain, Orthopnea, Palpitations, Paroxysmal Noc. Dyspnea Respiratory: Denies: Cough, Shortness of breath at rest, Shortness of breath upon exertion, Sputum production Gastrointestinal: Denies: Abdominal Pain, Hematemesis, Hematochezia, Nausea, Melena, Vomiting Genitourinary: Denies: Dysuria, Frequency, Hematuria, Urgency Skin: Reports: Skin Changes Neurological: Denies: Focal weakness, Numbness, Tingling Psychiatric: Denies: Homicidal Ideations, Suicidal Ideations Hematologic/ Lymphatic: Denies: Easy Bruising, Easy Bleeding VTE Information - Inpt Only VTE Present on Admission: No VTE Mechan Device Prophylaxis: None VTE Pharm Prophylaxis ordered?: Yes Objective: GENERAL: cooperative HEENT: Atraumatic; EYES; Anicteric, Normal Conjunctiva NECK; supple, normal thyroid, RESPIRATORY: Diminished to auscultation CARDIOVASCULAR: Regular S1 S2, GI: soft, normoactive bowel sounds, : No Renal angle tenderness; EXTREMITIES: Erythema and warmth involving the distal half of the right lower extremity MUSCULOSKELETAL: no muscle waisting NEURO: Awake; no lateralizing signs. SKIN: No Rash PSYCH; Flat affect - Physical Exam Vitals/I&O's: Vital Signs Temp Pulse Resp BP Pulse Ox 100.6 F H 108 H 17 173/94 H 100 08/29/19 10:51 08/29/19 10:51 08/29/19 10:51 08/29/19 10:51 08/29/19 10:51 Oxygen Delivery Method Room Air Weight: 237.7 kg Body Mass Index (BMI) 73.0 Laboratory Results 08/29/19 12:36: WBC 24.1 H, RBC 4.38 L, Hgb 12.0 L, Hct 37.0 L, MCV 84.5, MCH 27.4, MCHC 32.4, RDW Std Deviation 43.3, RDW Coeff of Yanni 14.0, Plt Count 207, MPV 10.3, Immature Gran % (Auto) 0.700, Neut % (Auto) 89.8 H, Lymph % (Auto) 4.0 L, [place] % (Auto) 5.1, Eos % (Auto) 0.1, Baso % (Auto) 0.3, Absolute Neuts (auto) 21.6 H, Absolute Lymphs (auto) 0.96, Nucleated RBC % 0, Differential Comment SCANNED 08/29/19 12:36: Sodium 140, Potassium 5.4 H, Chloride 109 H, Carbon Dioxide 22.0, Anion Gap 9, BUN 17, Creatinine 0.98, Estim Creat Clear Calc 114.19, Est GFR (MDRD) Af Amer 112, Est GFR (MDRD) Non-Af 93, BUN/Creatinine Ratio 17.3, Glucose 88, Calcium 9.3 08/29/19 12:36: Lactic Acid 2.0 Assessment/Plan All Active Problems Cellulitis (Acute) Patient is a 33-year-old gentleman presenting with erythema and warmth involving the right lower extremity 1. Sepsis secondary to cellulitis involving the right lower extremity ?Patient admitted to regular nursing floor managed with cefazolin as well as vancomycin after blood cultures were sent. Plan is to monitor patient with his daily vitals as well as monitor his markedly elevated WBC count. Lactic acid on admission was 2.0 2. History of psoriasis ?Patient is on Stelara and as outpatient 3. Morbid obesity with BMI of 73 ?Weight loss advised 4. Obstructive sleep apnea ?On CPAP at night plan is to continue with home settings 5. DVT prophylaxis - on enoxaparin Inpatient E&M: 21675 Init Hosp L3
[2019-08-29] MEDS: Lactated Ringers 1,000 ML 150 ML IV (15:00)
--- NOTE | 2019-08-29 15:30 | PHA.PHARE_ITS ---
Consult Pharmacy has been consulted to manage selected antiobiotic: Vancomycin Type of Consult: New start Suspected Infection: Sepsis, Skin/Soft tissue Labs: Sodium 140 mmol/L (136-145) 08/29/19 12:36 Potassium 5.4 mmol/L (3.5-5.1) H 08/29/19 12:36 Chloride 109 mmol/L (98-107) H 08/29/19 12:36 Carbon Dioxide 22.0 mmol/L (21.0-32.0) 08/29/19 12:36 Anion Gap 9 (5-15) 08/29/19 12:36 BUN 17 mg/dL (7-18) 08/29/19 12:36 Creatinine 0.98 mg/dL (0.70-1.30) 08/29/19 12:36 Est GFR (MDRD) Af Amer 112 mL/min (>60) 08/29/19 12:36 Est GFR (MDRD) Non-Af 93 mL/min (>60) 08/29/19 12:36 BUN/Creatinine Ratio 17.3 RATIO (10-20) 08/29/19 12:36 Glucose 88 mg/dL (74-106) 08/29/19 12:36 Weight used for dosin.7 kg Estimated Creatinine Clearance: >100ML/MIN Goal Trough: 15-20 mcg/mL Pharmacy Plan for Drug Dosing: Give initial loading dose of 2000mg IV x1, then continue with 1500mg IV q8h (per [facility] dosing protocol). A trough level will be ordered to be drawn before the 4th dose tomorrow. Pharmacy Service will continue to monitor and adjust dosing as required. Follow-Up Labs: Trough Vancomycin Labs to be done on [date and time ordered]: 08/30/19 14:30
[2019-08-29 16:41] LABS: Reflex Lactate? Y
[2019-08-29 17:57] LABS: Lactic Acid 1.2 mmol/L (0.4-1.9)
[2019-08-29] MEDS: Acetaminophen 325 MG Tablet 650 MG PO (18:20)
--- NOTE | 2019-08-29 18:25 | NURSING ---
This nurse in to check VS again. Fever of 103.1. Tylenol given and This nurse texted via [employer] Dr. Bobo to make him aware of temp, tylenol given and asked if we could repeat Lactic acid and if he wanted a bolus for the pt. Waiting promotional representative back.
--- NOTE | 2019-08-29 18:46 | NURSING ---
Dr. Bobo did not want to repeat Lactic Acid as it was recently drawn and it was 1.2 order to give 1L bolus and get blood cultures.
[2019-08-29] MEDS: 0.9% Normal Saline 1,000 ML 999 ML IV (18:59)
[2019-08-29] MEDS: 0.9% Saline Lock 10 ML Syringe IV (20:41)
[2019-08-29] MEDS: Enoxaparin 40 MG/0.4 ML Syringe SC (23:18)
[2019-08-30 02:15] VITALS: BP 138/71; PULSE 95; RESP 18; TEMP 37.2; O2SAT 97
[2019-08-30 06:33] LABS: Absolute Lymphocyte Count 1.27 X10^3/uL (0.83-4.51); Absolute Neutrophil Count 11.5 X10^3/uL (2.0-7.7); Basophil# 0.05 X10^3/uL; Basophil% 0.4 % (0-1); Eosinophil# 0.02 X10^3/uL; Eosinophils% 0.1 % (0-5); Hematocrit 33.7 % (40-54); Hemoglobin 10.7 g/dL (13.0-16.5); Lymphocyte # 1.27 X10^3/ul (4.0); Lymphocyte % 9.2 % (19-41); Mean Corp Hgb Conc 31.8 g/dL (32-36); Mean Corpuscular Hgb 27.6 pg (27.0-32.0); Mean Corpuscular Volume 87.1 fL (80-94); Mean Platelet Vol. 10.3 fl (6.2-12.0); Monocyte# 0.96 X10^3/uL; Monocyte% 6.9 % (0-10); NRBC Flagged by Analyzer 0 % (0-5); Neutrophil # 11.48 X10^3/uL (2.7-7.7); Neutrophil % 82.8 % (47-70); Platelet Count 147 K/mm3 (150-450); RBC Distribution Width CV 14.3 % (11.6-14.6); RBC Distribution Width SD 45.3 fl (35.1-43.9); Red Blood Count 3.87 M/mm3 (4.6-6.2); White Blood Count 13.9 K/mm3 (4.4-11.0)
[2019-08-30] MEDS: Lactated Ringers 1,000 ML 150 ML IV ×2 (06:36→22:33)
[2019-08-30 07:07] LABS: Anion Gap 8 (5-15); BUN 11 mg/dL (7-18); BUN/Creat Ratio 13.6 RATIO (10-20); Calcium,Total 8.3 mg/dL (8.5-10.1); Chloride 109 mmol/L (98-107); Creatinine, Serum 0.81 mg/dL (0.70-1.30); EST Glomerular Filtration Rate 116 mL/min (>60); Est Glom Filt Rate - Afr Amer 141 mL/min (>60); Estimated Creatinine Clearance 138.15 ml/min; Glucose 98 mg/dL (74-106); Potassium 3.4 mmol/L (3.5-5.1); Sodium Level 137 mmol/L (136-145); Thyroid Stim Hormone (TSH) 2.35 uIU/mL (0.358-3.74)
--- NOTE | 2019-08-30 07:17 | PCM.PN.HOSP ---
Reason for Visit: Sepsis secondary to cellulitis Subjective: Patient has more extensive area involving the right lower extremity with regards to his cellulitis. T-max for the past 24 hours 100.3. Still has significant elevated WBC count Patient is also hypokalemic Objective: GENERAL: cooperative HEENT: Atraumatic; EYES; Anicteric, Normal Conjunctiva NECK; supple, normal thyroid, RESPIRATORY: Diminished to auscultation CARDIOVASCULAR: Regular S1 S2, GI: soft, normoactive bowel sounds, : No Renal angle tenderness; EXTREMITIES: Erythema and warmth involving the distal half of the right lower extremity MUSCULOSKELETAL: no muscle waisting NEURO: Awake; no lateralizing signs. SKIN: No Rash PSYCH; Flat affect Vitals/I&O's: Vital Signs Temp Pulse Resp BP Pulse Ox 99.0 F 95 18 138/71 H 97 08/30/19 02:15 08/30/19 02:15 08/30/19 02:15 08/30/19 02:15 08/30/19 02:15 Oxygen Delivery Method Bi-pap Weight: 237.7 kg Body Mass Index (BMI) 73.0 Intake and Output for Last 24 Hours 08/28/19 08/29/19 08/30/19 23:59 23:59 23:59 Intake Total 2.5 / 1912.5 1292.5 / 1292.5 Balance 2.5 / 1912.5 1292.5 / 1292.5 Laboratory Results 08/29/19 12:36: WBC 24.1 H, RBC 4.38 L, Hgb 12.0 L, Hct 37.0 L, MCV 84.5, MCH 27.4, MCHC 32.4, RDW Std Deviation 43.3, RDW Coeff of Yanni 14.0, Plt Count 207, MPV 10.3, Immature Gran % (Auto) 0.700, Neut % (Auto) 89.8 H, Lymph % (Auto) 4.0 L, [place] % (Auto) 5.1, Eos % (Auto) 0.1, Baso % (Auto) 0.3, Absolute Neuts (auto) 21.6 H, Absolute Lymphs (auto) 0.96, Nucleated RBC % 0, Differential Comment SCANNED 08/29/19 12:36: Sodium 140, Potassium 5.4 H, Chloride 109 H, Carbon Dioxide 22.0, Anion Gap 9, BUN 17, Creatinine 0.98, Estim Creat Clear Calc 114.19, Est GFR (MDRD) Af Amer 112, Est GFR (MDRD) Non-Af 93, BUN/Creatinine Ratio 17.3, Glucose 88, Calcium 9.3 08/29/19 12:36: Lactic Acid 2.0 08/29/19 17:20: Lactic Acid 1.2 08/30/19 05:56: WBC 13.9 H, RBC 3.87 L, Hgb 10.7 L, Hct 33.7 L, MCV 87.1, MCH 27.6, MCHC 31.8 L, RDW Std Deviation 45.3 H, RDW Coeff of Yanni 14.3, Plt Count 147 L, MPV 10.3, Immature Gran % (Auto) 0.600, Neut % (Auto) 82.8 H, Lymph % (Auto) 9.2 L, [place] % (Auto) 6.9, Eos % (Auto) 0.1, Baso % (Auto) 0.4, Absolute Neuts (auto) 11.5 H, Absolute Lymphs (auto) 1.27, Nucleated RBC % 0 08/30/19 05:56: Sodium 137, Potassium 3.4 L, Chloride 109 H, Carbon Dioxide 20.0 L, Anion Gap 8, BUN 11, Creatinine 0.81, Estim Creat Clear Calc 138.15, Est GFR (MDRD) Af Amer 141, Est GFR (MDRD) Non-Af 116, BUN/Creatinine Ratio 13.6, Glucose 98, Calcium 8.3 L, TSH 2.35 Current Medications Acetaminophen (Tylenol) 650 mg PO Q6H PRN PRN PRN Reason: Pain Score 1-10/Temp > 100.7 F Last Admin: 08/29/19 18:20 Dose: 650 mg Documented by: Al Hydroxide/Mg Hydroxide (Mylanta Ii) 30 ml PO Q6H PRN PRN PRN Reason: Gastric Burning Albuterol Sulfate (Ventolin Aerosols) 2.5 mg INHALATION Q2H PRN PRN PRN Reason: Shortness of Breath/Wheezing Amlodipine Besylate (Norvasc) 10 mg PO DAILY [facility] Enoxaparin Sodium (Lovenox) 40 mg SC BID [facility] Last Admin: 08/29/19 23:18 Dose: 40 mg Documented by: Lactated Ringer's () 1,000 mls @ 150 mls/hr IV .[id number] [facility] Stop: 08/31/19 00:54 Last Infusion: 08/30/19 06:37 Dose: 0 mls/hr Documented by: Vancomycin IV Pharmacy to Dose (1 ea/ Sodium Chloride) 500 mls @ 250 mls/hr IV X1 PRN; Protocol PRN Reason: Rx to Dose Sodium Chloride () 250 mls @ 15 mls/hr IV .[id number] PRN PRN Reason: Saline Flush Sodium Chloride () 250 mls @ 15 mls/hr IV .[id number] PRN PRN Reason: Additional IVPB Infusion Vancomycin HCl 1,500 mg/ (Sodium Chloride) 530 mls @ 250 mls/hr IV Q8H [facility] Last Admin: 08/30/19 06:37 Dose: 250 mls/hr Documented by: Ceftriaxone Sodium 1 gm/ (Sodium Chloride) 50 mls @ 100 mls/hr IV Q12 [facility] Magnesium Hydroxide (Milk Of Magnesia) 30 ml PO DAILY PRN PRN PRN Reason: Constipation Melatonin (Melatonin) 3 mg PO QHS PRN PRN PRN Reason: INSOMNIA Ondansetron HCl (Zofran) 4 mg IV Q8H PRN PRN PRN Reason: NAUSEA/VOMITING Oxycodone HCl (Oxyir) 5 mg PO Q4H PRN PRN PRN Reason: Pain Score 4-5/10 Oxycodone HCl (Oxyir) 10 mg PO Q4H PRN PRN PRN Reason: Pain Score 6-10/10 Prochlorperazine Edisylate (Compazine Iv) 5 mg IV Q4H PRN PRN PRN Reason: Breakthrough nausea/vomiting Sodium Chloride () 10 - 40 ml IV UD PRN PRN Reason: SALINE FLUSH Last Admin: 08/29/19 20:41 Dose: 10 ml Documented by: Medical Necessity - Tobacco Use Smoking Status: Never smoker Assessment/Plan All Active Problems Cellulitis (Acute) Patient is a 33-year-old gentleman presenting with erythema and warmth involving the right lower extremity 1. Sepsis secondary to cellulitis involving the right lower extremity ?Patient admitted to regular nursing floor managed with cefazolin as well as vancomycin after blood cultures were sent. Plan is to monitor patient with his daily vitals as well as monitor his markedly elevated WBC count. Lactic acid on admission was 2.0 ?08/30/2019 patient has more extensive area involving the right lower extremity with regards to his cellulitis. T-max for the past 24 hours 100.3. Still has significant elevated WBC count 2. History of psoriasis ?Patient is on Stelara and as outpatient 3. Morbid obesity with BMI of 73 ?Weight loss advised 4. Obstructive sleep apnea ?On CPAP at night plan is to continue with home settings 5. DVT prophylaxis - on enoxaparin 6. Hypokalemia -corrected per protocol Inpatient E&M: 96324 [facility] Hosp L3
[2019-08-30 08:04] VITALS: O2SAT 96
[2019-08-30] MEDS: Ceftriaxone 1 GM/50 mL Premix Q24 IV ×2 (09:42→21:05)
[2019-08-30] MEDS: Enoxaparin 40 MG/0.4 ML Syringe SC ×2 (09:46→21:23)
[2019-08-30] MEDS: amLODIPine 10 MG Tablet PO (09:47)
[2019-08-30 10:07] VITALS: BP 134/80; PULSE 97; RESP 18; TEMP 37.4; O2SAT 96
[2019-08-30 15:18] VITALS: BP 136/90; PULSE 91; RESP 16; TEMP 36.9; O2SAT 98
[2019-08-30 15:34] LABS: Vancomycin, Trough Level 11.2 ug/mL (5.0-15.0)
--- NOTE | 2019-08-30 16:01 | PCM.RX.CS ---
Consult Pharmacy has been consulted to manage selected antiobiotic: Vancomycin Type of Consult: Follow-up Suspected Infection: Sepsis, Skin/Soft tissue Prior Doses of Antibiotics Received/Current Regimen: The patient is currently on vancomycin 1500mg IV q8h. Labs: Sodium 137 mmol/L (136-145) 08/30/19 05:56 Potassium 3.4 mmol/L (3.5-5.1) L 08/30/19 05:56 Chloride 109 mmol/L (98-107) H 08/30/19 05:56 Carbon Dioxide 20.0 mmol/L (21.0-32.0) L 08/30/19 05:56 Anion Gap 8 (5-15) 08/30/19 05:56 BUN 11 mg/dL (7-18) 08/30/19 05:56 Creatinine 0.81 mg/dL (0.70-1.30) 08/30/19 05:56 Est GFR (MDRD) Af Amer 141 mL/min (>60) 08/30/19 05:56 Est GFR (MDRD) Non-Af 116 mL/min (>60) 08/30/19 05:56 BUN/Creatinine Ratio 13.6 RATIO (10-20) 08/30/19 05:56 Glucose 98 mg/dL (74-106) 08/30/19 05:56 Vancomycin Trough 11.2 ug/mL (5.0-15.0) 08/30/19 14:30 Weight used for dosin.7 kg Estimated Creatinine Clearance: >100ml/min Goal Trough: 15-20 mcg/mL Pharmacy Plan for Drug Dosing: The vancomycin trough level drawn before this afternoon's dose resulted in a level of 11.2 mg/L (drawn 8 hours after the previous dose). This is short of the goal range of 15-20 so will increase dosing to 1750mg IV q8h to start with tonight's dose. Will check another trough before the 4th new dose tomorrow night. Pharmacy Service will continue to monitor and adjust dosing as required. Follow-Up Labs: Trough Vancomycin Labs to be done on [date and time ordered]: 08/31/19 22:30
[2019-08-30 20:50] VITALS: BP 140/67; PULSE 95; RESP 20; TEMP 36.6; O2SAT 98
[2019-08-30] MEDS: MELATONIN 3 MG TABLET PO (21:05)
[2019-08-31] MEDS: Psyllium 1 PACKET PO ×4 (02:13→22:07)
[2019-08-31 02:14] VITALS: BP 139/58; PULSE 90; RESP 18; TEMP 37.4; O2SAT 97
[2019-08-31 06:40] LABS: Absolute Lymphocyte Count 1.23 X10^3/uL (0.83-4.51); Absolute Neutrophil Count 5.5 X10^3/uL (2.0-7.7); Basophil# 0.05 X10^3/uL; Basophil% 0.7 % (0-1); Eosinophil# 0.16 X10^3/uL; Eosinophils% 2.1 % (0-5); Hematocrit 31.5 % (40-54); Hemoglobin 9.9 g/dL (13.0-16.5); Lymphocyte # 1.23 X10^3/ul (4.0); Lymphocyte % 16.1 % (19-41); Mean Corp Hgb Conc 31.4 g/dL (32-36); Mean Corpuscular Hgb 27.2 pg (27.0-32.0); Mean Corpuscular Volume 86.5 fL (80-94); Mean Platelet Vol. 10.2 fl (6.2-12.0); Monocyte# 0.71 X10^3/uL; Monocyte% 9.3 % (0-10); NRBC Flagged by Analyzer 0 % (0-5); Neutrophil # 5.45 X10^3/uL (2.7-7.7); Neutrophil % 71.1 % (47-70); Platelet Count 164 K/mm3 (150-450); RBC Distribution Width CV 13.9 % (11.6-14.6); RBC Distribution Width SD 43.6 fl (35.1-43.9); Red Blood Count 3.64 M/mm3 (4.6-6.2); White Blood Count 7.7 K/mm3 (4.4-11.0)
[2019-08-31 07:11] LABS: Anion Gap 4 (5-15); BUN 10 mg/dL (7-18); BUN/Creat Ratio 14.8 RATIO (10-20); Calcium,Total 8.3 mg/dL (8.5-10.1); Chloride 109 mmol/L (98-107); Creatinine, Serum 0.68 mg/dL (0.70-1.30); EST Glomerular Filtration Rate 143 mL/min (>60); Est Glom Filt Rate - Afr Amer 173 mL/min (>60); Estimated Creatinine Clearance 164.56 ml/min; Glucose 109 mg/dL (74-106); Potassium 3.6 mmol/L (3.5-5.1); Sodium Level 138 mmol/L (136-145)
[2019-08-31 07:30] VITALS: O2SAT 97
--- NOTE | 2019-08-31 09:19 | PCM.PN.HOSP ---
Reason for Visit: Follow-up on right leg cellulitis Subjective: Patient was seen and examined. Multiple attempts at placing IV access was unsuccessful. Denies any fever or chills. Redness and swelling in the lower extremity has improved. Vitals/I&O's: Vital Signs Temp Pulse Resp BP Pulse Ox 99.3 F H 90 18 139/58 H 97 08/31/19 02:14 08/31/19 02:14 08/31/19 02:14 08/31/19 02:14 08/31/19 07:30 Oxygen Delivery Method Room Air Weight: 237.7 kg Body Mass Index (BMI) 73.0 Intake and Output for Last 24 Hours 08/29/19 08/30/19 08/31/19 23:59 23:59 23:59 Intake Total 1911.5 / 1911.5 4050.00 / 4300.00 2137.5 / 2137.5 Output Total Balance 2.5 / 2.5 4050.00 / 4300.00 2136.5 / 2136.5 General: Alert, Oriented x3, Cooperative, No apparent distress, - - Super morbidly obese HEENT: Atraumatic, PERRLA, EOMI, Normocephalic Oral: Moist Mucosa Neck: Supple Lungs: Clear to auscultation, Normal air movement Cardiovascular: Regular rate, Regular Rhythm, Normal S1, Normal S2, No murmurs Abdomen: Bowel Sounds Present, Soft, Non Tender, Non-Distended, No Hepato-splenomegaly Extremities: - - Erythema of the right lower extremity from below the knee to the ankle, erythema is fading, not beyond the marked borders +1 bipedal edema Skin: - - See under extremity Musculoskeletal: No Tenderness to Palpation of Joints or Extremities Lymphatic: No Cervical, Supraclavicular, or Inguinal Adenopathy Neurological: Cranial nerves II-XII grossly intact, Neuro grossly intact Psych/Mental Status: Normal Affect, Appropriate Laboratory Results 08/30/19 14:30: Vancomycin Trough 11.2 08/31/19 06:31: WBC 7.7, RBC 3.64 L, Hgb 9.9 L, Hct 31.5 L, MCV 86.5, MCH 27.2, MCHC 31.4 L, RDW Std Deviation 43.6, RDW Coeff of Yanni 13.9, Plt Count 164, MPV 10.2, Immature Gran % (Auto) 0.700, Neut % (Auto) 71.1 H, Lymph % (Auto) 16.1 L, [place] % (Auto) 9.3, Eos % (Auto) 2.1, Baso % (Auto) 0.7, Absolute Neuts (auto) 5.5, Absolute Lymphs (auto) 1.23, Nucleated RBC % 0 08/31/19 06:31: Sodium 138, Potassium 3.6, Chloride 109 H, Carbon Dioxide 25.0, Anion Gap 4 L, BUN 10, Creatinine 0.68 L, Estim Creat Clear Calc 164.56, Est GFR (MDRD) Af Amer 173, Est GFR (MDRD) Non-Af 143, BUN/Creatinine Ratio 14.8, Glucose 109 H, Calcium 8.3 L Current Medications Acetaminophen (Tylenol) 650 mg PO Q6H PRN PRN PRN Reason: Pain Score 1-10/Temp > 100.7 F Last Admin: 08/29/19 18:20 Dose: 650 mg Documented by: Al Hydroxide/Mg Hydroxide (Mylanta Ii) 30 ml PO Q6H PRN PRN PRN Reason: Gastric Burning Albuterol Sulfate (Ventolin Aerosols) 2.5 mg INHALATION Q2H PRN PRN PRN Reason: Shortness of Breath/Wheezing Amlodipine Besylate (Norvasc) 10 mg PO DAILY [facility] Last Admin: 08/30/19 09:47 Dose: 10 mg Documented by: Enoxaparin Sodium (Lovenox) 40 mg SC BID [facility] Last Admin: 08/30/19 21:23 Dose: 40 mg Documented by: Vancomycin IV Pharmacy to Dose (1 ea/ Sodium Chloride) 500 mls @ 250 mls/hr IV X1 PRN; Protocol PRN Reason: Rx to Dose Sodium Chloride () 250 mls @ 15 mls/hr IV .[id number] PRN PRN Reason: Saline Flush Last Infusion: 08/30/19 21:05 Dose: 0 mls/hr Documented by: Sodium Chloride () 250 mls @ 15 mls/hr IV .[id number] PRN PRN Reason: Additional IVPB Infusion Ceftriaxone Sodium (Rocephin) 1 gm in 50 mls @ 100 mls/hr IV Q12 [facility] Last Infusion: 08/30/19 21:35 Dose: Infused Documented by: Vancomycin HCl 1,750 mg/ (Sodium Chloride) 535 mls @ 250 mls/hr IV Q8H [facility] Last Infusion: 08/31/19 00:42 Dose: Infused Documented by: Magnesium Hydroxide (Milk Of Magnesia) 30 ml PO DAILY PRN PRN PRN Reason: Constipation Melatonin (Melatonin) 3 mg PO QHS PRN PRN PRN Reason: INSOMNIA Last Admin: 08/30/19 21:05 Dose: 3 mg Documented by: Ondansetron HCl (Zofran) 4 mg IV Q8H PRN PRN PRN Reason: NAUSEA/VOMITING Oxycodone HCl (Oxyir) 5 mg PO Q4H PRN PRN PRN Reason: Pain Score 4-5/10 Oxycodone HCl (Oxyir) 10 mg PO Q4H PRN PRN PRN Reason: Pain Score 6-10/10 Prochlorperazine Edisylate (Compazine Iv) 5 mg IV Q4H PRN PRN PRN Reason: Breakthrough nausea/vomiting Psyllium Hydrophilic Mucilloid (Metamucil) 1 packet PO TID [facility] Last Admin: 08/31/19 06:47 Dose: 1 packet Documented by: Sodium Chloride () 10 - 40 ml IV UD PRN PRN Reason: SALINE FLUSH Last Admin: 08/29/19 20:41 Dose: 10 ml Documented by: STROKE Vital Signs/Narrative: Vital Signs Pulse Ox 08/31/19 07:30 97 Medical Necessity - Tobacco Use Smoking Status: Never smoker Assessment/Plan All Active Problems Cellulitis (Acute) 1. Sepsis secondary to right lower extremity cellulitis, improving No fevers overnight, WBC count is normal Right lower extremity cellulitis appears to be improving/fading Was on IV ceftriaxone and vancomycin Cannot get IV access We will switch to cefdinir 300mg po bid 2. Hypokalemia, resolved 3. Hypertension, controlled, continue amlodipine, lisinopril 4. Super morbid obesity, BMI 73.1, lifestyle modification as well as weight loss recommended 5. ALICE, on CPAP 6. History of psoriasis, on Stelara in the outpatient 7. DVT prophylaxis with Lovenox subcu 8. Disposition: Possible DC in am if improved Inpatient E&M: 11601 Subs Hosp L2
--- NOTE | 2019-08-31 10:10 | CASEMGMT ---
RN CM Face to Face with patient for initial transition planning/care coordination assessment. RN CM introduced self and role at [facility]. Patient sitting at edge of bed, alert and oriented. Patient willing to participate in assessment and is able to answer all questions appropriately. Care providers, pharmacy, and demographics verified. Patient wishes to discharge home, denies need for home health at this time. Patient states he has no further needs or concerns at this time. CM to follow for discharge planning needs that may arise. PCP: Brie Specialists: [facility] Preferred Pharmacy: [facility] Insurance: [employer] Prescription Benefit: yes Living Will/HPOA: none LNOK: Living Arrangements: Patient lives with in single story home with 3 steps and railing to enter the home. Patient states he is independent at home. Transportation: self/ DME/HHC: Patient states he has bipap at home. Patient denies need for additional DME at this time. Disposition Plan: Patient to discharge home with family support and follow-up plans in place. Vandana IBANEZ, RN, CM
[2019-08-31 10:42] VITALS: BP 145/72; PULSE 78; RESP 18; TEMP 37.1; O2SAT 98
[2019-08-31] MEDS: Cefdinir 300 MG Capsule PO ×2 (10:43→22:08)
[2019-08-31] MEDS: amLODIPine 10 MG Tablet PO (10:44)
[2019-08-31] MEDS: Enoxaparin 40 MG/0.4 ML Syringe SC ×2 (10:44→22:10)
[2019-08-31 15:41] VITALS: BP 143/84; PULSE 84; RESP 18; TEMP 36.8; O2SAT 98
[2019-08-31 21:52] VITALS: BP 117/59; PULSE 94; RESP 18; TEMP 36.9; O2SAT 96
[2019-09-01 04:15] VITALS: BP 128/69; PULSE 79; RESP 18; TEMP 36.8; O2SAT 97
[2019-09-01] MEDS: Psyllium 1 PACKET PO (05:30)
[2019-09-01 07:50] VITALS: O2SAT 96
[2019-09-01 09:18] VITALS: BP 144/98; PULSE 75; RESP 18; TEMP 36.7; O2SAT 98
[2019-09-01] MEDS: Enoxaparin 40 MG/0.4 ML Syringe SC (09:20)
[2019-09-01] MEDS: amLODIPine 10 MG Tablet PO (09:20)
[2019-09-01] MEDS: Cefdinir 300 MG Capsule PO (09:20)
--- NOTE | 2019-09-01 11:05 | DCINST_ITS ---
- Discharge Diagnoses Reason(s) for Visit for Discharge Instructions: Sepsis secondary to Left leg cellulitis You will use the following diet at home:: Cardiac Your food should be the consistency of: Regular Your liquids should be the consistency of: Regular/Thin Discharge Activity: Return to Normal Activity Instructions: Cellulitis, Cellulitis - Causes,Symptoms,Treating Additional Instructions: Complete your antibiotics. 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 Follow-up with your primary care doctor within 1-2 weeks. Continue to elevate your right lower leg. Allergies/Adverse Reactions: Allergies sulfamethoxazole [From Bactrim] Allergy (Verified 08/29/19 14:40) Hives trimethoprim [From Bactrim] Allergy (Verified 08/29/19 14:40) Hives PITTED FRUIT Allergy (Uncoded 08/29/19 14:40) SCRATCHY THROAT Medications to take at Discharge Ustekinumab [Stelara] 90 mg IM 05/15/19 Amlodipine [Norvasc] 10 mg PO DAILY 30 Days #30 tab 09/01/19 Cefdinir [Omnicef [equiv]] 300 mg PO Q12 7 Days #14 cap 09/01/19 The following prescriptions were given: Amlodipine [Norvasc] 10 mg PO DAILY 30 Days #30 tab Transmission Status: [facility] [address] Cefdinir [Omnicef [equiv]] 300 mg PO Q12 7 Days #14 cap Transmission Status: Pending to [facility] [address] Primary Care Physician: Miguel Ángel Baird MD [Primary Care Provider] - Please follow up with your Primary Care Physician in: within 1-2 weeks Test Results: Test results from this visit will be discussed in further detail at your follow- up appointment, if applicable. Proposed Discharge Date: 09/01/19
--- NOTE | 2019-09-01 11:08 | PCM.DC.SUM ---
Discharge Date and Diagnosis Date of Admission: 08/29/19 Date of Discharge: 09/01/19 - Primary Discharge Diagnosis Sepsis secondary to right lower extremity cellulitis Hypokalemia - Secondary Discharge Diagnosis Chronic Problems ALICE (obstructive sleep apnea) (Chronic) Morbid obesity with BMI of 70 and over, adult (Chronic) Hospital Course and Treatment None Operations: None Procedures: None Summary of Care Provided: The patient is a 33 year old M with past medical history of super morbid obesity, ALICE, psoriasis who comes with redness of the right lower extremity which started 1 day prior to admission. Patient was admitted to the [facility] floor as sepsis secondary to right lower extremity cellulitis and started on IV antibiotics. He had hypokalemia that was replaced. He was also found to be hypertensive and was started on amlodipine and lisinopril. Was managed on IV Zosyn with vancomycin. He continued to improve and was discharged home on cefdinir to complete 10 days of treatment. He knows to follow-up with his primary doctor within 1 week for evaluation of his cellulitis Subjective: On the day of discharge, he denied any complains. He feels much improved. Denied any fever or chills. Objective: Physical exam: General: Alert, Oriented x3, Cooperative, No apparent distress, - - Super morbidly obese HEENT: Atraumatic, PERRLA, EOMI, Normocephalic Oral: Moist Mucosa Neck: Supple Lungs: Clear to auscultation, Normal air movement Cardiovascular: Regular rate, Regular Rhythm, Normal S1, Normal S2, No murmurs Abdomen: Bowel Sounds Present, Soft, Non Tender, Non-Distended, No Hepato-splenomegaly Extremities: - - Erythema of the right lower extremity from below the knee to the ankle, erythema is fading, not beyond the marked borders +1 bipedal edema Skin: - - See under extremity Musculoskeletal: No Tenderness to Palpation of Joints or Extremities Lymphatic: No Cervical, Supraclavicular, or Inguinal Adenopathy Neurological: Cranial nerves II-XII grossly intact, Neuro grossly intact Psych/Mental Status: Normal Affect, Appropriate - Physical Exam Vitals/I&O's: Vital Signs Temp Pulse Resp BP Pulse Ox 98.1 F 75 18 144/98 H 98 09/01/19 09:18 09/01/19 09:18 09/01/19 09:18 09/01/19 09:18 09/01/19 09:18 Oxygen Delivery Method Room Air Weight: 237.7 kg Body Mass Index (BMI) 73.0 Intake and Output for Last 24 Hours 08/30/19 08/31/19 09/01/19 23:59 23:59 23:59 Intake Total 4050.00 / 4300.00 2537.5 / 2537.5 Output Total Balance 4050.00 / 4300.00 2536.5 / 2536.5 Microbiology Past 72 Hours 08/29/19 12:59 Blood Culture (Wb) - Left Wrist Blood Culture - Preliminary No growth in 48 hours. 08/29/19 11:45 Blood Culture (Wb) - Anticubital Left Blood Culture - Preliminary No growth in 48 hours. Current Medications Acetaminophen (Tylenol) 650 mg PO Q6H PRN PRN PRN Reason: Pain Score 1-10/Temp > 100.7 F Last Admin: 08/29/19 18:20 Dose: 650 mg Documented by: Al Hydroxide/Mg Hydroxide (Mylanta Ii) 30 ml PO Q6H PRN PRN PRN Reason: Gastric Burning Albuterol Sulfate (Ventolin Aerosols) 2.5 mg INHALATION Q2H PRN PRN PRN Reason: Shortness of Breath/Wheezing Amlodipine Besylate (Norvasc) 10 mg PO DAILY [facility] Last Admin: 09/01/19 09:20 Dose: 10 mg Documented by: Cefdinir (Omnicef [Equiv]) 300 mg PO Q12 [facility] Last Admin: 09/01/19 09:20 Dose: 300 mg Documented by: Enoxaparin Sodium (Lovenox) 40 mg SC BID [facility] Last Admin: 09/01/19 09:20 Dose: 40 mg Documented by: Sodium Chloride () 250 mls @ 15 mls/hr IV .[id number] PRN PRN Reason: Saline Flush Last Infusion: 08/31/19 10:47 Dose: Infused Documented by: Sodium Chloride () 250 mls @ 15 mls/hr IV .[id number] PRN PRN Reason: Additional IVPB Infusion Magnesium Hydroxide (Milk Of Magnesia) 30 ml PO DAILY PRN PRN PRN Reason: Constipation Melatonin (Melatonin) 3 mg PO QHS PRN PRN PRN Reason: INSOMNIA Last Admin: 08/30/19 21:05 Dose: 3 mg Documented by: Ondansetron HCl (Zofran) 4 mg IV Q8H PRN PRN PRN Reason: NAUSEA/VOMITING Oxycodone HCl (Oxyir) 5 mg PO Q4H PRN PRN PRN Reason: Pain Score 4-5/10 Oxycodone HCl (Oxyir) 10 mg PO Q4H PRN PRN PRN Reason: Pain Score 6-10/10 Prochlorperazine Edisylate (Compazine Iv) 5 mg IV Q4H PRN PRN PRN Reason: Breakthrough nausea/vomiting Psyllium Hydrophilic Mucilloid (Metamucil) 1 packet PO TID [facility] Last Admin: 09/01/19 05:30 Dose: 1 packet Documented by: Sodium Chloride () 10 - 40 ml IV UD PRN PRN Reason: SALINE FLUSH Last Admin: 08/29/19 20:41 Dose: 10 ml Documented by: Discharge Diet: Low fat/ Low Cholesterol, 2000 mg Sodium Diet Discharge Activity: Return to Normal Activity Home Medications: Medications to take at Discharge Ustekinumab [Stelara] 90 mg IM 05/15/19 Amlodipine [Norvasc] 10 mg PO DAILY 30 Days #30 tab 09/01/19 Cefdinir [Omnicef [equiv]] 300 mg PO Q12 7 Days #14 cap 09/01/19 Following Prescrptions Were Given to Patient: Amlodipine [Norvasc] 10 mg PO DAILY 30 Days #30 tab [facility] Status: [facility] Cefdinir [Omnicef [equiv]] 300 mg PO Q12 7 Days #14 cap Transmission Status: Received by [facility] Primary Care Physician: Miguel Ángel Baird MD [Primary Care Provider] - Please follow up with your Primary Care Physician in: within 1-2 weeks Patient Instructions: Cellulitis, Cellulitis - Causes,Symptoms,Treating Disposition: Home Minutes spent on discharge:: 40 Patient Condition:: Stable Medical Necessity - Tobacco Use Smoking Status: Never smoker Tobacco Use: Non-smoker Meaningful Use Info Meaningful Use Diagnoses (Choose all that apply): None applicable Inpatient E&M: 62123 [facility] Hosp
== END 2019-09-01 11:53 | disposition home or self-care (01) | DRG 872 ==
LOC: ED 11:49 → MS3 13:56
PROVIDERS: Admitting Provider Internal Medicine; Emergency Provider Emergency Medicine; PCP Family Medicine; Visit Provider Internal Medicine
DX: A41.9 Sepsis, unspecified organism (principal); L03.115 Cellulitis of right lower limb; Z68.45 Body mass index [BMI] 70 or greater, adult; E87.6 Hypokalemia; E66.01 Morbid (severe) obesity due to excess calories; G47.33 Obstructive sleep apnea (adult) (pediatric); L40.9 Psoriasis, unspecified; I10 Essential (primary) hypertension; Z83.3 Family history of diabetes mellitus
CPT/HCPCS: 36415; 80048; 80202; 83605; 84443; 85025; 87040; 96365; 99285; J7030; J7040; J7050; J7120; A4216; J0696

== ENCOUNTER 2020-01-30 14:12 | Inpatient (IN) | payer BC, SELFPAY ==
[2019-08-29 14:16] VITALS: BMI 73.0
[2020-01-30 14:14] VITALS: BP 207/106; PULSE 122; RESP 22; TEMP 37.9; O2SAT 97; BMI 71.8
--- NOTE | 2020-01-30 14:25 | ED.VISSUMM ---
- ER Visit Summary Date of Service: 01/30/20 Chief Complaint: [Concern for cellulitis] History of Present Illness: The patient is a 34 M [presents to the emergency department thinking he has cellulitis. Patient states that he developed a fever around noon as well as chills. Patient has had cellulitis 2 other times this year to the right leg typically. Patient denies any cough, sore throat, or body aches. No exposures to COVID-19. Patient is scheduled to have weight loss surgery in February of this year. He is not diabetic.] Physical Examination: [HEENT-PERRLA, EOMI. Cranial nerves II through XII grossly intact. TMs clear. Mucous membranes moist. No adenopathy. Cardiovascular-regular rate and rhythm without murmur or ectopy Lungs-clear to auscultation, chest wall stable without crepitus or subcu emphysema Abdomen-normoactive bowel sounds, soft, nontender, no rebound or rigidity, no peritoneal signs. Extremities-intact ?4, normal range of motion, normal pulses, atraumatic. Evaluation of the right leg reveals some subtle faint erythema when compared to the opposite side. Patient does have evidence of lymphedema. No lymphangitic streaking noted. Normal pulses.] Test Results: [CBC with differential obtained showed a white count of 16.1, hemoglobin 12, hematocrit 38, placed 250. Chemistries unremarkable. LFTs and urinalysis were unremarkable. Lactate was 1.8.] Emergency Department Course and Treatment: [IV line established. Patient had blood cultures ordered. Patient started on Unasyn 3 g IV.] Treatment Plan: [Admit] Disposition: [Admit] Impression: [Cellulitis right leg Sepsis syndrome] This note was generated with Aiming dictation software. It may contain incorrect words, spelling, and punctuation that were not noted in review of the chart prior to signing ED Disposition - Plan for ED Patient: Referrals: Miguel Ángel Baird MD [Primary Care Provider] -
[2020-01-30 14:38] LABS: Bacteria 0 SEEN /hpf (None Seen); Mucous, Urine 0 SEEN /hpf (<or=2+); Red Blood Cells-Urine 0 SEEN /hpf (0-5); White Blood Cells 0 SEEN /hpf (0-5)
[2020-01-30 14:47] LABS: Color, Urine Yellow (Yellow); Glucose, Dipstick Normal (Normal); Ketone-Dipstick Negative (Negative); Leukocyte Esterase-Dipstick Negative /ul (Negative); Nitrite-Dipstick Negative (Negative); Occult Blood-Urine Negative /ul (Negative); Protein-Dipstick Negative (Negative); Urine Bilirubin Dipstick Negative (Negative); Urine Clarity Clear (Clear); Urine Urobilinogen Normal (Normal); Urine pH 6.5 (5.0 - 8.0)
[2020-01-30] MEDS: 0.9% Normal Saline 1,000 ML 150 ML IV (14:47)
[2020-01-30 14:48] LABS: Absolute Lymphocyte Count 0.99 X10^3/uL (0.83-4.51); Absolute Neutrophil Count 13.8 X10^3/uL (2.0-7.7); Basophil# 0.08 X10^3/uL; Basophil% 0.5 % (0-1); Eosinophil# 0.16 X10^3/uL; Hematocrit 37.8 % (40-54); Hemoglobin 12.3 g/dL (13.0-16.5); Lymphocyte # 0.99 X10^3/ul (4.0); Lymphocyte % 6.2 % (19-41); Mean Corp Hgb Conc 32.5 g/dL (32-36); Mean Corpuscular Volume 86.1 fL (80-94); Monocyte# 1.03 X10^3/uL; Monocyte% 6.4 % (0-10); NRBC Flagged by Analyzer 0 % (0-5); Neutrophil # 13.75 X10^3/uL (2.7-7.7); Neutrophil % 85.5 % (47-70); Platelet Count 250 K/mm3 (150-450); RBC Distribution Width CV 13.9 % (11.6-14.6); RBC Distribution Width SD 44.1 fl (35.1-43.9); Red Blood Count 4.39 M/mm3 (4.6-6.2); White Blood Count 16.1 K/mm3 (4.4-11.0)
[2020-01-30 14:54] VITALS: BP 142/61; PULSE 125; RESP 19; O2SAT 98
[2020-01-30 14:57] LABS: Squamous Epithelial Cells - UA 0-5 SEEN /hpf (0-5)
[2020-01-30 15:01] LABS: ALB/GLOB Ratio 0.9 RATIO (0.9-2.4); AST(SGOT) 14 U/L (15-37); Alanine Aminotransfer ALT/SGPT 35 U/L (16-61); Albumin, Serum 3.7 g/dL (3.2-5.0); Alkaline Phosphatase 60 U/L (45-117); Anion Gap 5 (5-15); BUN 21 mg/dL (7-18); BUN/Creat Ratio 23.2 RATIO (10-20); Calcium,Total 8.9 mg/dL (8.5-10.1); Chloride 106 mmol/L (98-107); Creatinine, Serum 0.91 mg/dL (0.70-1.30); EST Glomerular Filtration Rate 102 mL/min (>60); Est Glom Filt Rate - Afr Amer 123 mL/min (>60); Estimated Creatinine Clearance 121.82 ml/min; Glucose 97 mg/dL (74-106); Protein, Total 7.7 g/dL (6.4-8.2); Sodium Level 139 mmol/L (136-145)
[2020-01-30 15:08] LABS: Lactic Acid 1.8 mmol/L (0.4-1.9)
[2020-01-30 15:15] VITALS: BP 112/88; PULSE 118; RESP 17; TEMP 39; O2SAT 99
[2020-01-30 15:26] VITALS: BP 112/88; PULSE 118; RESP 17; TEMP 39; O2SAT 99
--- NOTE | 2020-01-30 15:29 | NURSING ---
DR ULI MOODY
--- NOTE | 2020-01-30 15:30 | NURSING ---
PCU CELLULITIS RT LEG, SEPSIS ULI
[2020-01-30] MEDS: Acetaminophen 325 MG Tablet 650 MG PO ×2 (15:45→22:49)
--- NOTE | 2020-01-30 16:30 | HP.PCM_ITS ---
Problem List (1) Hypertension Status: Chronic (2) Metabolic syndrome Status: Chronic (3) Cellulitis Status: Acute Qualifiers: Site of cellulitis: extremity Site of cellulitis of extremity: lower extremity Laterality: right Qualified Code(s): L03.115 - Cellulitis of right lower limb (4) Morbid obesity with BMI of 70 and over, adult Status: Chronic (5) ALICE (obstructive sleep apnea) Status: Chronic History of Present Illness Date of Admission: 01/30/20 Chief Complaint: Right leg redness with fever The patient is a 34 year old M with history of morbid obesity, hypertension came to ER with right lower extremity redness and fever. As per patient, he was feeling chills in the morning but recorded normal temperature 98.2 ?F in the morning before entering work and after leaving work. In ER, his temperature was noted 102.2 Fahrenheit, heart rate 122/min, blood pressure 207/106, respiratory rate 22 but blood pressure improved to 142/61 and then 112/88 without antihyper tensive treatment. [] Patient has history of recurrent cellulitis and this is the third time he was admitted. Prior to that he was admitted in August and May 2019 for cellulitis of right lower extremity. Abnormal work in ER significant of leukocytosis 16.1 thousand, leukocytosis 35.5 thousand. UA negative. Patient was given IV Unasyn and admitted. Past Medical History Past Medical History (Chronic Problems): Chronic Problems ALICE (obstructive sleep apnea) (Chronic) Morbid obesity with BMI of 70 and over, adult (Chronic) Hypertension (Chronic) Metabolic syndrome (Chronic) Allergies sulfamethoxazole [From Bactrim] Allergy (Verified 01/30/20 14:16) Hives trimethoprim [From Bactrim] Allergy (Verified 01/30/20 14:16) Hives PITTED FRUIT Allergy (Uncoded 01/30/20 14:16) SCRATCHY THROAT Home Medications: Ambulatory Orders Medication Instructions Recorded Ustekinumab [Stelara] 90 mg IM Q90D 05/15/19 Amlodipine [Norvasc] 10 mg PO DAILY 01/30/20 Cholecalciferol (Vitamin D3) 50,000 unit PO QWEEK 01/30/20 [D3-50] Lisinopril 20 mg PO DAILY 01/30/20 Metformin HCl 500 mg PO DAILY 01/30/20 Surgical History: - - right knee surgery, hand surgery after trauma Psychiatric History: No pertinent psych hx Smoking Status: Never smoker - *Family History Maternal History Items: Diabetes Paternal History Items: Diabetes, Heart Disease, - - Morbid obesity and history of gastric bypass and father Sibling History Items: - - Morbid obesity and history of gastric bypass in sister Review of Systems Constitutional: Reports: Chills, Fever, Malaise, Weakness HEENT: Denies: Head Aches, Sinus Congestion, Sinus Drainage Cardiovascular: Denies: Chest Pain, Palpitations Respiratory: Denies: Cough, Shortness of breath at rest, Sputum production Gastrointestinal: Denies: Abdominal Pain, Nausea, Vomiting Genitourinary: Denies: Dysuria Musculoskeletal: Reports: Joint stiffness. Denies: Joint Tenderness Skin: Denies: Rash, Wounds Neurological: Reports: Balance problems. Denies: Focal weakness, Numbness, Tingling Psychiatric: Denies: Anxiety, Depression, Homicidal Ideations, Suicidal Ideations Hematologic/ Lymphatic: Denies: Easy Bruising, Easy Bleeding VTE Information - Inpt Only VTE Present on Admission: No VTE Mechan Device Prophylaxis: None VTE Pharm Prophylaxis ordered?: Yes - Physical Exam Vitals/I&O's: Vital Signs Temp Pulse Resp BP Pulse Ox 102.2 F H 118 H 17 112/88 H 99 01/30/20 15:26 01/30/20 15:26 01/30/20 15:26 01/30/20 15:26 01/30/20 15:26 Oxygen Delivery Method Room Air Weight: 515 lb Body Mass Index (BMI) 71.8 Intake and Output for Last 24 Hours 01/28/20 01/29/20 01/30/20 23:59 23:59 23:59 Intake Total 112 / 112 Balance 112 / 112 General: Alert, Oriented x3, Cooperative HEENT: Atraumatic, PERRLA, EOMI, Normocephalic Neck: Supple, No JVD, Negative Carotid Bruits Lungs: Clear to auscultation, No rhonchi, No wheeze, No rales, Diminished - Air entry diminished in bilateral lung bases secondary to obesity Cardiovascular: Regular rate, Regular Rhythm, Normal S1, Normal S2, No murmurs Abdomen: Bowel Sounds Present, Soft, Non Tender, Non-Distended, - - : Denies dysuria or new neurologic tract symptoms. Urine output adequate. Extremities: Capillary Refill Less than 3 Seconds, Edema - Bilateral lower extremity lymphedema from groin. Skin: Rash Present - Mild tenderness over right lower leg without any opening or weeping ulcer. Musculoskeletal: No Tenderness to Palpation of Joints or Extremities Neurological: Cranial nerves II-XII grossly intact Psych/Mental Status: Normal Affect, Appropriate Laboratory Results 01/30/20 14:30: Urine Color Yellow, Urine Clarity Clear, Urine pH 6.5, Ur Specific [place] 1.010, Urine Protein Negative, Urine Glucose (UA) Normal, Urine Ketones Negative, Urine Occult Blood Negative, Urine Nitrite Negative, Urine Bilirubin Negative, Urine Urobilinogen Normal, Ur Leukocyte Esterase Negative, Urine RBC 0 SEEN, Urine WBC 0 SEEN, Ur Squamous Epith Cells 0-5 SEEN, Urine Bacteria 0 SEEN, Urine Mucus 0 SEEN 01/30/20 14:35: WBC 16.1 H, RBC 4.39 L, Hgb 12.3 L, Hct 37.8 L, MCV 86.1, MCH 28.0, MCHC 32.5, RDW Std Deviation 44.1 H, RDW Coeff of Yanni 13.9, Plt Count 250, MPV 10.0, Immature Gran % (Auto) 0.400, Neut % (Auto) 85.5 H, Lymph % (Auto) 6.2 L, [place] % (Auto) 6.4, Eos % (Auto) 1.0, Baso % (Auto) 0.5, Absolute Neuts (auto) 13.8 H, Absolute Lymphs (auto) 0.99, Nucleated RBC % 0 01/30/20 14:35: Sodium 139, Potassium 4.0, Chloride 106, Carbon Dioxide 28.0, Anion Gap 5, BUN 21 H, Creatinine 0.91, Estim Creat Clear Calc 121.82, Est GFR (MDRD) Af Amer 123, Est GFR (MDRD) Non-Af 102, BUN/Creatinine Ratio 23.2 H, Glucose 97, Calcium 8.9, Total Bilirubin 0.60, AST 14 L, ALT 35, Alkaline Phosphatase 60, Total Protein 7.7, Albumin 3.7, Globulin 4.0, Albumin/Globulin Ratio 0.9 01/30/20 14:35: Lactic Acid 1.8 Current Medications Amlodipine Besylate (Norvasc) 10 mg PO DAILY [facility] Sodium Chloride () 1,000 mls @ 150 mls/hr IV .[id number] [facility] Last Admin: 01/30/20 14:47 Dose: 150 mls/hr Documented by: Lisinopril (Zestril) 20 mg PO DAILY [facility] Metformin HCl (Glucophage) 500 mg PO DAILY [facility] Assessment/Plan All Active Problems Cellulitis (Acute) The patient is a 34 year old M with history of morbid obesity, hypertension came to ER with right lower extremity redness and fever, leukocytosis consistent with right lower extremity cellulitis. Lactic acid normal. 1. Right lower extremity cellulitis with history of recurrent cellulitis: Patient is started on IV antibiotic cefazolin 2 g every 8 hourly. Patient looks hydrated therefore IV fluid normal saline 50 mils per hour. Monitor intake and output. Monitor weight. 2. History of psoriasis ?Patient is on Stelara as outpatient 3. Morbid obesity with BMI 68.9 kg/m?. Patient is scheduled for weight loss surgery in February 2020. ?Weight loss advised. Patient is on metformin for metabolic disease/insulin resistant state. Glucoses 97. Last A1c May 25 25.9. 4. Obstructive sleep apnea ?On CPAP at night plan is to continue with home settings 5. Hypertension blood pressure is controlled. On amlodipine and lisinopril. DVT prophylaxis, moderate risk mainly secondary to morbid obesity - on enoxaparin 40 mg subcu every 12 hourly. He has last venous Doppler negative in October 2019. Inpatient E&M: 89691 Init Hosp L3
[2020-01-30 16:39] VITALS: BMI 68.8
[2020-01-30 16:46] VITALS: BMI 68.9
[2020-01-30] MEDS: 0.9% Normal Saline 1,000 ML 50 ML IV (16:55)
[2020-01-30 16:57] VITALS: BP 147/55; PULSE 116; RESP 20; TEMP 38.7; O2SAT 96
[2020-01-30] MEDS: Enoxaparin 40 MG/0.4 ML Syringe SC (17:37)
[2020-01-30] MEDS: Cefazolin 2 GM in 0.9% Normal Saline 100 ML IV ×2 (17:49→22:39)
[2020-01-30 22:45] VITALS: BP 168/81; PULSE 110; RESP 16; TEMP 38.7; O2SAT 97
[2020-01-31 04:45] VITALS: BP 140/84; PULSE 107; RESP 20; TEMP 38.9; O2SAT 96
[2020-01-31] MEDS: Acetaminophen 325 MG Tablet 650 MG PO ×2 (05:05→15:43)
[2020-01-31] MEDS: Cefazolin 2 GM in 0.9% Normal Saline 100 ML IV ×3 (05:06→21:22)
[2020-01-31 06:06] LABS: Absolute Neutrophil Count 13.5 X10^3/uL (2.0-7.7); Basophil# 0.06 X10^3/uL; Basophil% 0.4 % (0-1); Eosinophil# 0.07 X10^3/uL; Eosinophils% 0.5 % (0-5); Hematocrit 36.2 % (40-54); Hemoglobin 11.6 g/dL (13.0-16.5); Mean Corpuscular Volume 84.4 fL (80-94); Mean Platelet Vol. 10.3 fl (6.2-12.0); Monocyte# 0.68 X10^3/uL; Monocyte% 4.5 % (0-10); NRBC Flagged by Analyzer 0 % (0-5); Neutrophil % 90.1 % (47-70); POSITIVE DIFFERENTIAL YES; Platelet Count 205 K/mm3 (150-450); RBC Distribution Width CV 14.4 % (11.6-14.6); RBC Distribution Width SD 44.4 fl (35.1-43.9); Red Blood Count 4.29 M/mm3 (4.6-6.2)
[2020-01-31 06:08] LABS: Differential Indicated SCAN CRITERIA MET
[2020-01-31 06:27] LABS: ALB/GLOB Ratio 0.8 RATIO (0.9-2.4); AST(SGOT) 17 U/L (15-37); Alanine Aminotransfer ALT/SGPT 34 U/L (16-61); Albumin, Serum 3.3 g/dL (3.2-5.0); Alkaline Phosphatase 53 U/L (45-117); Anion Gap 6 (5-15); BUN 17 mg/dL (7-18); BUN/Creat Ratio 19.7 RATIO (10-20); Calcium,Total 8.4 mg/dL (8.5-10.1); Chloride 104 mmol/L (98-107); Creatinine, Serum 0.86 mg/dL (0.70-1.30); EST Glomerular Filtration Rate 108 mL/min (>60); Est Glom Filt Rate - Afr Amer 131 mL/min (>60); Estimated Creatinine Clearance 128.91 ml/min; Globulin 3.9 g/dL (2.2-4.2); Glucose 104 mg/dL (74-106); Potassium 3.8 mmol/L (3.5-5.1); Protein, Total 7.2 g/dL (6.4-8.2); Sodium Level 136 mmol/L (136-145)
[2020-01-31 06:31] LABS: Differential Comment SCANNED
[2020-01-31 07:28] VITALS: RESP 16; O2SAT 96
[2020-01-31] MEDS: metFORMIN HCl 500 MG Tablet PO (08:40)
[2020-01-31 09:15] VITALS: BP 160/83; PULSE 96; RESP 18; TEMP 37.3; O2SAT 96
[2020-01-31] MEDS: amLODIPine 10 MG Tablet PO (09:18)
[2020-01-31] MEDS: Lisinopril 20 MG Tablet PO (09:18)
[2020-01-31] MEDS: Enoxaparin 40 MG/0.4 ML Syringe SC ×2 (09:18→21:23)
--- NOTE | 2020-01-31 10:10 | VDLE_ITS ---
Reason For Study: SWELLING RIGHT LEFT GSV is normal. GSV is normal. FV is compressible, spontaneous, phasic, FV is compressible, spontaneous, phasic, competent and demonstrates normal competent and demonstrates normal augmentation. augmentation. POP V is compressible, spontaneous, phasic, POP V is compressible, spontaneous, phasic, competent and demonstrates normal competent and demonstrates normal augmentation. augmentation. T/P Trunk is compressible. T/P Trunk is compressible. PTV is compressible. PTV is compressible. RT PerV is compressible. LT PerV is compressible. Rt Calf veins only visualized distally due to Left CFV/SFJ not visualized due to body lymphedema and body habitus. habitus. Rt CFV/ SFV not visualized due to body Proximal calf veins are difficult to assess. habitus. Procedure Exam performed portable in patient room. Technically difficult due to body habitus. A preliminary report was called and/or faxed to PCU. Interpretation Summary Technically difficult and limited examination complicated by body habitus. No evidence for acute deep venous thrombosis bilateral lower extremities. Proximal and mid right calf veins not visualized. Right common femoral/saphenofemoral junction not visualized. Left common femoral/saphenofemoral junction not visualized. Proximal left calf veins poorly imaged Ordering Physician: Dontrell Solis Referring Physician: MARIA T ERICKSON Performed By: Melissa Walters, MARLINE, RVT
--- NOTE | 2020-01-31 10:11 | PN_ITS ---
Reason for Visit: Right leg cellulitis Objective: Patient had persistent fever:, T-max 102.1 Fahrenheit accompanied with tachycardia around 116/min. Currently afebrile and normal heart rate. Physical exam General: Alert, Oriented x3, Cooperative HEENT: Atraumatic, PERRLA, EOMI, Normocephalic Oral: No Gingival or Mucosal Lesions/ Ulcerations Neck: Supple, No JVD, Negative Carotid Bruits Lungs: Air entry diminished in bilateral lung bases again due to obesity. No crepitation/rhonchi Cardiovascular: Regular rate, Regular Rhythm, Normal S1, Normal S2, No murmurs Abdomen: Bowel Sounds Present, Soft, Non Tender, Non-Distended : No renal angle tenderness. No suprapubic tenderness. Extremities: Bilateral lymphedema and venous stasis. Capillary Refill Less than 3 Seconds Skin: Mild redness in the right lower leg with mild induration but without tenderness. No weeping ulcer or drainage Musculoskeletal: No Tenderness to Palpation of Joints or Extremities Neurological: Cranial nerves II-XII grossly intact, Deep Tendon Reflexes 2+/4 and Symmetrical, Neuro grossly intact Psych/Mental Status: Normal Affect, Appropriate. Vitals/I&O's: Vital Signs Temp Pulse Resp BP Pulse Ox 99.1 F 96 18 160/83 H 96 01/31/20 09:15 01/31/20 09:15 01/31/20 09:15 01/31/20 09:15 01/31/20 09:15 Oxygen Delivery Method Room Air Weight: 528 lb Body Mass Index (BMI) 68.8 Intake and Output for Last 24 Hours 01/29/20 01/30/20 01/31/20 23:59 23:59 23:59 Intake Total 1719.50 / 1719.50 610 / 610 Balance 1719.50 / 1719.50 610 / 610 Laboratory Results 01/30/20 14:30: Urine Color Yellow, Urine Clarity Clear, Urine pH 6.5, Ur Specific [place] 1.010, Urine Protein Negative, Urine Glucose (UA) Normal, Urine Ketones Negative, Urine Occult Blood Negative, Urine Nitrite Negative, Urine Bilirubin Negative, Urine Urobilinogen Normal, Ur Leukocyte Esterase Negative, Urine RBC 0 SEEN, Urine WBC 0 SEEN, Ur Squamous Epith Cells 0-5 SEEN, Urine Bacteria 0 SEEN, Urine Mucus 0 SEEN 01/30/20 14:35: WBC 16.1 H, RBC 4.39 L, Hgb 12.3 L, Hct 37.8 L, MCV 86.1, MCH 28.0, MCHC 32.5, RDW Std Deviation 44.1 H, RDW Coeff of Yanni 13.9, Plt Count 250, MPV 10.0, Immature Gran % (Auto) 0.400, Neut % (Auto) 85.5 H, Lymph % (Auto) 6.2 L, Moffat % (Auto) 6.4, Eos % (Auto) 1.0, Baso % (Auto) 0.5, Absolute Neuts (auto) 13.8 H, Absolute Lymphs (auto) 0.99, Nucleated RBC % 0 01/30/20 14:35: Sodium 139, Potassium 4.0, Chloride 106, Carbon Dioxide 28.0, Anion Gap 5, BUN 21 H, Creatinine 0.91, Estim Creat Clear Calc 121.82, Est GFR (MDRD) Af Amer 123, Est GFR (MDRD) Non-Af 102, BUN/Creatinine Ratio 23.2 H, Glucose 97, Calcium 8.9, Total Bilirubin 0.60, AST 14 L, ALT 35, Alkaline Phosphatase 60, Total Protein 7.7, Albumin 3.7, Globulin 4.0, Albumin/Globulin Ratio 0.9 01/30/20 14:35: Lactic Acid 1.8 01/31/20 05:05: WBC 15.0 H, RBC 4.29 L, Hgb 11.6 L, Hct 36.2 L, MCV 84.4, MCH 27.0, MCHC 32.0, RDW Std Deviation 44.4 H, RDW Coeff of Yanni 14.4, Plt Count 205, MPV 10.3, Immature Gran % (Auto) 0.500, Neut % (Auto) 90.1 H, Lymph % (Auto) 4.0 L, Moffat % (Auto) 4.5, Eos % (Auto) 0.5, Baso % (Auto) 0.4, Absolute Neuts (auto) 13.5 H, Absolute Lymphs (auto) 0.60 L, Nucleated RBC % 0, Differential Comment SCANNED 01/31/20 05:05: Sodium 136, Potassium 3.8, Chloride 104, Carbon Dioxide 26.0, Anion Gap 6, BUN 17, Creatinine 0.86, Estim Creat Clear Calc 128.91, Est GFR (MDRD) Af Amer 131, Est GFR (MDRD) Non-Af 108, BUN/Creatinine Ratio 19.7, Glucose 104, Calcium 8.4 L, Total Bilirubin 1.30 H, AST 17, ALT 34, Alkaline Phosphatase 53, Total Protein 7.2, Albumin 3.3, Globulin 3.9, Albumin/Globulin Ratio 0.8 L Current Medications Acetaminophen (Tylenol) 650 mg PO Q6H PRN PRN PRN Reason: Pain Score 1-10/Temp > 100.7 F Last Admin: 01/31/20 05:05 Dose: 650 mg Documented by: Al Hydroxide/Mg Hydroxide (Mylanta Ii) 30 ml PO Q6H PRN PRN PRN Reason: Gastric Burning Albuterol Sulfate (Ventolin Aerosols) 2.5 mg INHALATION Q2H PRN PRN PRN Reason: Shortness of Breath/Wheezing Amlodipine Besylate (Norvasc) 10 mg PO DAILY [facility] Last Admin: 01/31/20 09:18 Dose: 10 mg Documented by: Enoxaparin Sodium (Lovenox) 40 mg SC Q12 [facility] Last Admin: 01/31/20 09:18 Dose: 40 mg Documented by: Guaifenesin (Robitussin) 20 ml PO Q4H PRN PRN PRN Reason: COUGH Sodium Chloride () 1,000 mls @ 50 mls/hr IV .Q20H [facility] Stop: 01/31/20 12:32 Last Infusion: 01/30/20 23:59 Dose: 50 mls/hr Documented by: Cefazolin Sodium 2 gm/ Sodium (Chloride) 110 mls @ 150 mls/hr IV Q8 [facility] Last Infusion: 01/31/20 06:00 Dose: Infused Documented by: Lisinopril (Zestril) 20 mg PO DAILY [facility] Last Admin: 01/31/20 09:18 Dose: 20 mg Documented by: Melatonin (Melatonin) 3 mg PO QHS PRN PRN PRN Reason: INSOMNIA Metformin HCl (Glucophage) 500 mg PO DAILYCM [facility] Last Admin: 01/31/20 08:40 Dose: 500 mg Documented by: Morphine Sulfate () 2 mg IV Q3H PRN PRN PRN Reason: Pain Score 6-10/10 Nitroglycerin (Nitrostat) 0.4 mg SUBLINGUAL Q5M PRN PRN Reason: CARDIAC/CHEST PAIN Ondansetron HCl (Zofran) 4 mg IV Q8H PRN PRN PRN Reason: NAUSEA/VOMITING Oxycodone HCl (Oxyir) 5 mg PO Q4H PRN PRN PRN Reason: Pain Score 4-5/10 Prochlorperazine Edisylate (Compazine Iv) 5 mg IV Q4H PRN PRN PRN Reason: Breakthrough nausea/vomiting Senna/Docusate Sodium (Senokot-S, Olamide-Colace) 2 tablet PO BID PRN PRN PRN Reason: Constipation Sodium Chloride () 10 - 40 ml IV UD PRN PRN Reason: SALINE FLUSH STROKE Vital Signs/Narrative: Vital Signs Temp Pulse Resp BP Pulse Ox 01/31/20 09:15 99.1 F 96 18 160/83 H 96 01/31/20 07:28 16 96 Medical Necessity - Tobacco Use Smoking Status: Never smoker Tobacco Use: Non-smoker Assessment/Plan All Active Problems Cellulitis (Acute) The patient is a 34 year old M with history of morbid obesity, hypertension came to ER with right lower extremity redness and fever, leukocytosis consistent with right lower extremity cellulitis. Lactic acid normal. 1. Right lower extremity cellulitis with history of recurrent cellulitis: Patient is started on IV antibiotic cefazolin 2 g every 8 hourly. Patient looks hydrated therefore IV fluid normal saline 50 mils per hour. Monitor intake and output. Monitor weight. 01/30 DC IV fluid. 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 Discussed with ID Dr. Fields and agree with cefazolin dose 2 g IV every 8 hourly. MRSA nasal screen ordered. Venous Doppler ordered. 2. History of psoriasis ?Patient is on Stelara as outpatient 3. Morbid obesity with BMI 68.9 kg/m?. Patient is scheduled for weight loss surgery in February 2020. ?Weight loss advised. Patient is on metformin for metabolic disease/insulin resistant state. Glucoses 97. Last A1c May 25.9. 4. Obstructive sleep apnea ?On CPAP at night plan is to continue with home settings 5. Hypertension blood pressure is controlled. On amlodipine and lisinopril. DVT prophylaxis, moderate risk mainly secondary to morbid obesity - on enoxaparin 40 mg subcu every 12 hourly. He has last venous Doppler negative in October 2019. Inpatient E&M: 63155 Subs Hosp L2
[2020-01-31 13:22] LABS: M R Staph aureus DNA By PCR Negative (Negative); Probe Check PASS; Specimen Processing Control PASS
[2020-01-31 15:48] VITALS: BP 160/98; PULSE 107; RESP 18; TEMP 38.4; O2SAT 96
[2020-01-31 21:20] VITALS: BP 144/69; PULSE 85; RESP 16; TEMP 36.8; O2SAT 96
[2020-01-31] MEDS: 0.9% Saline Lock 10 ML Syringe IV (21:22)
--- NOTE | 2020-01-31 23:26 | NURSING ---
This RN taking over care now, received report from CORINA Yusuf. Martha RN
[2020-02-01 03:20] VITALS: BP 126/73; PULSE 93; RESP 20; TEMP 37.2; O2SAT 95
[2020-02-01] MEDS: Cefazolin 2 GM in 0.9% Normal Saline 100 ML IV ×3 (05:18→21:12)
[2020-02-01] MEDS: 0.9% Saline Lock 10 ML Syringe IV ×4 (05:19→21:11)
[2020-02-01 06:51] VITALS: O2SAT 93
[2020-02-01 08:06] VITALS: BP 141/77; PULSE 88; RESP 18; TEMP 37.2; O2SAT 96
[2020-02-01] MEDS: Lisinopril 20 MG Tablet PO (08:12)
[2020-02-01] MEDS: Enoxaparin 40 MG/0.4 ML Syringe SC ×2 (08:12→21:12)
[2020-02-01] MEDS: metFORMIN HCl 500 MG Tablet PO (08:12)
[2020-02-01] MEDS: amLODIPine 10 MG Tablet PO (08:12)
--- NOTE | 2020-02-01 09:36 | PN_ITS ---
Subjective: States that he is feeling better. Redness in leg is less intense and has shrunk within the line that was made at admission. Pt denies pain. Vitals/I&O's: Vital Signs Temp Pulse Resp BP Pulse Ox 99 F 88 18 141/77 H 96 02/01/20 08:06 02/01/20 08:06 02/01/20 08:06 02/01/20 08:06 02/01/20 08:06 Oxygen Delivery Method Room Air Weight: 239.497 kg Body Mass Index (BMI) 68.8 Intake and Output for Last 24 Hours 01/30/20 01/31/20 02/01/20 23:59 23:59 23:59 Intake Total 1719.50 / 1719.50 / 110 / 110 Output Total Balance 1719.50 / 1719.50 / 110 / 110 General: Alert, Oriented x3, Cooperative, No apparent distress, Well developed, Well nourished, - - super MO WM, standing up next to bed, at bedside Oral: Moist Mucosa, No Gingival or Mucosal Lesions/ Ulcerations, - - mallampati 2 Lungs: Clear to auscultation, Normal air movement, No rhonchi, No wheeze, No rales Cardiovascular: Regular rate, Regular Rhythm, Normal S1, Normal S2, No murmurs, No Ectopic Activity, No rub noted, No Gallop Abdomen: Bowel Sounds Present, Soft, Non Tender, Non-Distended, No Hepato- splenomegaly, Obese Extremities: No clubbing, No cyanosis, Edema - R > L Skin: No rashes, - - cracked skin with callus on his R heel with small open area Musculoskeletal: No Tenderness to Palpation of Joints or Extremities, No Muscle Wasting Neurological: Neuro grossly intact Psych/Mental Status: Normal Affect, Agitated, Alert and oriented to time, place, person, mood and affect Laboratory Results 01/31/20 10:30: MRSA (PCR) Negative Current Medications Acetaminophen (Tylenol) 650 mg PO Q6H PRN PRN PRN Reason: Pain Score 1-10/Temp > 100.7 F Last Admin: 01/31/20 15:43 Dose: 650 mg Documented by: Al Hydroxide/Mg Hydroxide (Mylanta Ii) 30 ml PO Q6H PRN PRN PRN Reason: Gastric Burning Albuterol Sulfate (Ventolin Aerosols) 2.5 mg INHALATION Q2H PRN PRN PRN Reason: Shortness of Breath/Wheezing Amlodipine Besylate (Norvasc) 10 mg PO DAILY [facility] Last Admin: 02/01/20 08:12 Dose: 10 mg Documented by: Enoxaparin Sodium (Lovenox) 40 mg SC Q12 [facility] Last Admin: 02/01/20 08:12 Dose: 40 mg Documented by: Guaifenesin (Robitussin) 20 ml PO Q4H PRN PRN PRN Reason: COUGH Cefazolin Sodium 2 gm/ Sodium (Chloride) 110 mls @ 150 mls/hr IV Q8 [facility] Last Infusion: 02/01/20 06:18 Dose: Infused Documented by: Lisinopril (Zestril) 20 mg PO DAILY [facility] Last Admin: 02/01/20 08:12 Dose: 20 mg Documented by: Melatonin (Melatonin) 3 mg PO QHS PRN PRN PRN Reason: INSOMNIA [facility] Last Admin: 02/01/20 08:12 Dose: 500 mg Documented by: Morphine Sulfate () 2 mg IV Q3H PRN PRN PRN Reason: Pain Score 6-10/10 Nitroglycerin (Nitrostat) 0.4 mg SUBLINGUAL Q5M PRN PRN Reason: CARDIAC/CHEST PAIN Ondansetron HCl (Zofran) 4 mg IV Q8H PRN PRN PRN Reason: NAUSEA/VOMITING Oxycodone HCl (Oxyir) 5 mg PO Q4H PRN PRN PRN Reason: Pain Score 4-5/10 Prochlorperazine Edisylate (Compazine Iv) 5 mg IV Q4H PRN PRN PRN Reason: Breakthrough nausea/vomiting Senna/Docusate Sodium (Senokot-S, Olamide-Colace) 2 tablet PO BID PRN PRN PRN Reason: Constipation Sodium Chloride () 10 - 40 ml IV UD PRN PRN Reason: SALINE FLUSH Last Admin: 02/01/20 08:12 Dose: 10 ml Documented by: STROKE Vital Signs/Narrative: Vital Signs Temp Pulse Resp BP Pulse Ox 02/01/20 08:06 99 F 88 18 141/77 H 96 02/01/20 06:51 93 Medical Necessity - Tobacco Use Smoking Status: Never smoker Tobacco Use: Non-smoker Assessment/Plan All Active Problems Cellulitis (Acute) R LE Cellulitis -pt has h/o recurrent cellulitis -leukocytosis is trending down -blood cx pending -on Ancef -pt has been afebrile since yesterday afternoon at 4 pm -MRSA PCR is neg -JOSE bandages and pt to get sleeves for at home -US today -cracks noted on heel of L foot--> 1 is open Mild Anemia -appears chronic and hgb are actually better than they have been -repeat CBC in am Hyperbilirubinemia -bili 1.3 -repeat in am -was WNL on admission HTN -continue amlodipine and lisinopril DM-2 -takes metformin alone at home 500 daily -last A1c was 5.9 on 05/2019 Vitamin D deficiency -restart replacement at D/C Super MO -recommend wgt loss -is having a gastric sleeve done in [place] at the end of February H/O Psoriasis -was on immunomodulator until August as pt had 3 episodes of RLE cellulitis -has been off since then and this is first episode DVT prophylaxis -continue BID Lovenox Code Status -Full
--- NOTE | 2020-02-01 13:20 | CASEMGMT ---
CORINA OTOOLE assessment: Face to Face with patient for initial transition planning/care coordination assessment. CORINA OTOOLE introduced self and role at [facility], pt voices understanding and consents to assessment at this time. Pt is sitting up in bed in no distress at this time. Pt is A/O x4 at this time and answers all questions appropriately at this time. Pt's is at bedside during assessment. Care providers, pharmacy, and demographics verified at this time. Presentation: Pt w/ fever, believes he has cellulitis to right leg Admitting dx: Right leg cellulitis PCP: Brie Specialists: [facility] Preferred Pharmacy: [facility] Insurance: [employer] Prescription Benefit: [employer] Living Will/HPOA: Pt states does not have LW/HPOA and declines AD info at this time. LNOK: Racquel Mckeon, Living Arrangements: Pt states lives with in 1 story home and states no concerns at home at this time. Pt states is independent with ADL's. Transportation: Pt states drives self and states no transportation concerns at this time. DME/HHC: Pt states has a bipap but does not remember the name of the company at this time. Pt states no hx of HHC or SNF in the past. Pt states no concerns with going home at time of discharge. 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 Pt states does not smoke cigarettes or drink ETOH. Pt states no further concerns/needs at this time. CM to follow for any further discharge planning/needs. Advised pt to ask for CM if any further questions/concerns/needs arise, voices understanding. Pt Goal: Home Plan[place] CORINA OTOOLE
[2020-02-01 14:01] VITALS: BP 150/88; PULSE 84; PULSE 89; RESP 20; RESP 26; TEMP 36.6; O2SAT 95; O2SAT 98
[2020-02-01 17:00] VITALS: BP 131/80; PULSE 89; RESP 20; TEMP 36.6; O2SAT 97
[2020-02-01] MEDS: Acetaminophen 325 MG Tablet 650 MG PO (20:00)
[2020-02-01 20:40] VITALS: BP 156/90; PULSE 97; RESP 18; TEMP 37.4; O2SAT 100
[2020-02-02 02:34] VITALS: BP 134/73; PULSE 70; RESP 18; TEMP 36.6; O2SAT 99
[2020-02-02] MEDS: Cefazolin 2 GM in 0.9% Normal Saline 100 ML IV (05:44)
[2020-02-02 05:54] LABS: Absolute Lymphocyte Count 1.42 X10^3/uL (0.83-4.51); Absolute Neutrophil Count 3.5 X10^3/uL (2.0-7.7); Basophil# 0.04 X10^3/uL; Basophil% 0.7 % (0-1); Eosinophil# 0.19 X10^3/uL; Eosinophils% 3.2 % (0-5); Hemoglobin 10.6 g/dL (13.0-16.5); Lymphocyte # 1.42 X10^3/ul (4.0); Lymphocyte % 23.8 % (19-41); Mean Corp Hgb Conc 30.3 g/dL (32-36); Mean Corpuscular Hgb 27.2 pg (27.0-32.0); Mean Corpuscular Volume 89.7 fL (80-94); Mean Platelet Vol. 10.4 fl (6.2-12.0); Monocyte# 0.77 X10^3/uL; Monocyte% 12.9 % (0-10); NRBC Flagged by Analyzer 0 % (0-5); Neutrophil # 3.51 X10^3/uL (2.7-7.7); Neutrophil % 58.7 % (47-70); Platelet Count 174 K/mm3 (150-450); RBC Distribution Width CV 14.5 % (11.6-14.6); RBC Distribution Width SD 47.3 fl (35.1-43.9)
[2020-02-02 06:12] LABS: ALB/GLOB Ratio 0.7 RATIO (0.9-2.4); AST(SGOT) 17 U/L (15-37); Alanine Aminotransfer ALT/SGPT 31 U/L (16-61); Albumin, Serum 2.8 g/dL (3.2-5.0); Alkaline Phosphatase 40 U/L (45-117); Anion Gap 6 (5-15); BUN 13 mg/dL (7-18); BUN/Creat Ratio 19.8 RATIO (10-20); Calcium,Total 8.2 mg/dL (8.5-10.1); Chloride 107 mmol/L (98-107); Creatinine, Serum 0.66 mg/dL (0.70-1.30); EST Glomerular Filtration Rate 148 mL/min (>60); Est Glom Filt Rate - Afr Amer 179 mL/min (>60); Estimated Creatinine Clearance 167.97 ml/min; Globulin 3.8 g/dL (2.2-4.2); Glucose 90 mg/dL (74-106); Potassium 3.9 mmol/L (3.5-5.1); Protein, Total 6.6 g/dL (6.4-8.2); Sodium Level 137 mmol/L (136-145)
[2020-02-02 07:46] VITALS: O2SAT 94
[2020-02-02 08:22] VITALS: BP 124/63; PULSE 77; RESP 20; TEMP 36.8; O2SAT 97
--- NOTE | 2020-02-02 08:52 | DCINST_ITS ---
- Discharge Diagnoses Current Active Problems: Current Active and Chronic Problems Hypertension (Chronic) Metabolic syndrome (Chronic) You will use the following diet at home:: Calorie/Carbohydrate Controlled (specify 1200, 1400, etc) Your food should be the consistency of: Regular Your liquids should be the consistency of: Regular/Thin Discharge Activity: Return to Normal Activity Return to work on:: 02/02/20 May resume sexual activity in: No Restrictions Call your doctor if you observe: Fever of 101 or Higher Allergies/Adverse Reactions: Allergies sulfamethoxazole [From Bactrim] Allergy (Verified 01/30/20 14:16) Hives trimethoprim [From Bactrim] Allergy (Verified 01/30/20 14:16) Hives PITTED FRUIT Allergy (Uncoded 01/30/20 14:16) SCRATCHY THROAT Medications to take at Discharge Acetaminophen 650 mg PO PRN 01/30/20 Amlodipine [Norvasc] 10 mg PO DAILY 01/30/20 Cholecalciferol (Vitamin D3) [D3-50] 50,000 unit PO QWEEK 01/30/20 Lisinopril 20 mg PO DAILY 01/30/20 Metformin HCl 500 mg PO DAILY 01/30/20 Cefadroxil 1 gm PO DAILY #8 tab 02/02/20 The following prescriptions were given: Cefadroxil 1 gm PO DAILY #8 tab Transmission Status: Pending to [facility] Primary Care Physician: Miguel Ángel Baird MD [Primary Care Provider] - Please follow up with your Primary Care Physician in: 1 week Test Results: Test results from this visit will be discussed in further detail at your follow- up appointment, if applicable.
--- NOTE | 2020-02-02 08:57 | DS.PCM_ITS ---
Discharge Date and Diagnosis Date of Admission: 01/30/20 Date of Discharge: 02/02/20 - Secondary Discharge Diagnosis Chronic Problems: Chronic Problems ALICE (obstructive sleep apnea) (Chronic) Morbid obesity with BMI of 70 and over, adult (Chronic) Hypertension (Chronic) Metabolic syndrome (Chronic) Hospital Course and Treatment Operations: None Procedures: None Summary of Care Provided: The patient is a 34 year old M with history of MO, and HTN who presented to the ED on 01/30/2020 with right lower extremity redness and fever. Pt reported that he was feeling chills on the morning of admission but recorded normal temperature 98.2 ?F that morning before going to work. In ED, his temperature was noted to be 102.2 Fahrenheit, he had a HR of 122 BPM, BP was 207/106, and respiratory rate was 22. His BP improved to 142/61 and then 112/88 without antihypertensive treatment. He has history of recurrent cellulitis in his LLE and this is the third time he has been admitted. Prior to this admission he was admitted in August and May 2019 for cellulitis of right lower extremity and d/c on Keflex both times. He had been Stelara for his psoriasis and stopped this in August hoping to decrease the frequency of his infections. Upon admission he had a leukocytosis of 16.1. He was treated with Ancef on admission and MRSA PCR was noted to be negative. LE dopplers were negative for clot. His white count dropped to 6.0 and he was d/c with 8 more days of abx with Cefadroxil 1 gm daily for 8 more days. There were cracks noted on the heel of the affected leg. D/w pt about foot care and using Aquaphor and socks at night to prevent these as they could be a nidus for infection. - Physical Exam Vitals/I&O's: Vital Signs Temp Pulse Resp BP Pulse Ox 98.2 F 77 20 H 124/63 H 97 02/02/20 08:22 02/02/20 08:22 02/02/20 08:22 02/02/20 08:22 02/02/20 08:22 Oxygen Delivery Method CPAP Weight: 103.476 kg Body Mass Index (BMI) 68.8 Intake and Output for Last 24 Hours 01/31/20 02/01/20 02/02/20 23:59 23:59 23:59 Intake Total 780 / 780 110 / 110 Output Total Balance 780 / 780 110 / 110 General: Alert, Oriented x3, Cooperative, No apparent distress, Well developed, Well nourished Lungs: Clear to auscultation, Normal air movement, No rhonchi, No wheeze, No rales Cardiovascular: Regular rate, Regular Rhythm, Normal S1, Normal S2, No murmurs, No Ectopic Activity, No rub noted, No Gallop Abdomen: Bowel Sounds Present, Soft, Non Tender, Non-Distended, No Hepato- splenomegaly, Obese Extremities: No clubbing, No cyanosis, No edema, Capillary Refill Less than 3 Seconds, No Calf Tenderness, Peripheral Pulses Normal Skin: No rashes, No breakdown Musculoskeletal: No Tenderness to Palpation of Joints or Extremities, No Muscle Wasting Neurological: Cranial nerves II-XII grossly intact, Neuro grossly intact Psych/Mental Status: Normal Affect, Appropriate, Alert and oriented to time, place, person, mood and affect Laboratory Results 02/02/20 05:16: WBC 6.0, RBC 3.90 L, Hgb 10.6 L, Hct 35.0 L, MCV 89.7 D, MCH 27.2, MCHC 30.3 L D, RDW Std Deviation 47.3 H, RDW Coeff of Yanni 14.5, Plt Count 174, MPV 10.4, Immature Gran % (Auto) 0.700, Neut % (Auto) 58.7, Lymph % (Auto) 23.8, [place] % (Auto) 12.9 H, Eos % (Auto) 3.2, Baso % (Auto) 0.7, Absolute Neuts (auto) 3.5, Absolute Lymphs (auto) 1.42, Nucleated RBC % 0 02/02/20 05:16: Sodium 137, Potassium 3.9, Chloride 107, Carbon Dioxide 24.0, Anion Gap 6, BUN 13, Creatinine 0.66 L, Estim Creat Clear Calc 167.97, Est GFR (MDRD) Af Amer 179, Est GFR (MDRD) Non-Af 148, BUN/Creatinine Ratio 19.8, Glucose 90, Calcium 8.2 L, Total Bilirubin 0.50, AST 17, ALT 31, Alkaline Phosphatase 40 L, Total Protein 6.6, Albumin 2.8 L, Globulin 3.8, Albumin/Globulin Ratio 0.7 L Current Medications Acetaminophen (Tylenol) 650 mg PO Q6H PRN PRN PRN Reason: Pain Score 1-10/Temp > 100.7 F Last Admin: 02/01/20 20:00 Dose: 650 mg Documented by: Al Hydroxide/Mg Hydroxide (Mylanta Ii) 30 ml PO Q6H PRN PRN PRN Reason: Gastric Burning Albuterol Sulfate (Ventolin Aerosols) 2.5 mg INHALATION Q2H PRN PRN PRN Reason: Shortness of Breath/Wheezing Amlodipine Besylate (Norvasc) 10 mg PO DAILY [facility] Last Admin: 02/01/20 08:12 Dose: 10 mg Documented by: Enoxaparin Sodium (Lovenox) 40 mg SC Q12 [facility] Last Admin: 02/01/20 21:12 Dose: 40 mg Documented by: Guaifenesin (Robitussin) 20 ml PO Q4H PRN PRN PRN Reason: COUGH Cefazolin Sodium 2 gm/ Sodium (Chloride) 110 mls @ 150 mls/hr IV Q8 [facility] Last Infusion: 02/02/20 06:28 Dose: Infused Documented by: Lisinopril (Zestril) 20 mg PO DAILY [facility] Last Admin: 02/01/20 08:12 Dose: 20 mg Documented by: Melatonin (Melatonin) 3 mg PO QHS PRN PRN PRN Reason: INSOMNIA [facility] Last Admin: 02/01/20 08:12 Dose: 500 mg Documented by: Morphine Sulfate () 2 mg IV Q3H PRN PRN PRN Reason: Pain Score 6-10/10 Nitroglycerin (Nitrostat) 0.4 mg SUBLINGUAL Q5M PRN PRN Reason: CARDIAC/CHEST PAIN Ondansetron HCl (Zofran) 4 mg IV Q8H PRN PRN PRN Reason: NAUSEA/VOMITING Oxycodone HCl (Oxyir) 5 mg PO Q4H PRN PRN PRN Reason: Pain Score 4-5/10 Prochlorperazine Edisylate (Compazine Iv) 5 mg IV Q4H PRN PRN PRN Reason: Breakthrough nausea/vomiting Senna/Docusate Sodium (Senokot-S, Olamide-Colace) 2 tablet PO BID PRN PRN PRN Reason: Constipation Sodium Chloride () 10 - 40 ml IV UD PRN PRN Reason: SALINE FLUSH Last Admin: 02/01/20 21:11 Dose: 10 ml Documented by: Discharge Activity: Return to Normal Activity Return to work on:: 02/02/20 May resume sexual activity in: No Restrictions Call your doctor if you observe: Fever of 101 or Higher Home Medications: Medications to take at Discharge Acetaminophen 650 mg PO PRN 01/30/20 Amlodipine [Norvasc] 10 mg PO DAILY 01/30/20 Cholecalciferol (Vitamin D3) [D3-50] 50,000 unit PO QWEEK 01/30/20 Lisinopril 20 mg PO DAILY 01/30/20 Metformin HCl 500 mg PO DAILY 01/30/20 Cefadroxil 1 gm PO DAILY #8 tab 02/02/20 Following Prescriptions Were Given to Patient: Cefadroxil 1 gm PO DAILY #8 tab Transmission Status: Pending to [facility] Primary Care Physician: Miguel Ángel Baird MD [Primary Care Provider] - Please follow up with your Primary Care Physician in: 1 week Medical Necessity - Tobacco Use Smoking Status: Never smoker Tobacco Use: Non-smoker Meaningful Use Info Meaningful Use Diagnoses (Choose all that apply): None applicable Inpatient E&M: 06857 [facility]
--- NOTE | 2020-02-02 09:42 | NURSING ---
Pt wishes to take medications at home for the day since he is being discharged at this time
== END 2020-02-02 09:46 | disposition home or self-care (01) | DRG 603 ==
LOC: ED 15:12 → PCU 18:13
PROVIDERS: Admitting Provider Internal Medicine; Emergency Provider Emergency Medicine; PCP Family Medicine; Visit Provider Internal Medicine
DX: L03.115 Cellulitis of right lower limb (principal); Z68.45 Body mass index [BMI] 70 or greater, adult; R17 Unspecified jaundice; E88.81 Metabolic syndrome and other insulin resistance; I10 Essential (primary) hypertension; E66.01 Morbid (severe) obesity due to excess calories; G47.33 Obstructive sleep apnea (adult) (pediatric); Z83.3 Family history of diabetes mellitus; L40.9 Psoriasis, unspecified; D64.9 Anemia, unspecified; E11.9 Type 2 diabetes mellitus without complications; E55.9 Vitamin D deficiency, unspecified
CPT/HCPCS: 36415; 80053; 81001; 83605; 85025; 87040; 87641; 93970; 99251; 99283; J7030; J7040; A4216; G0463; J0295

== ENCOUNTER 2020-04-05 06:55 | Emergency (ER) | payer BC, SELFPAY ==
[2020-04-05 06:55] VITALS: BP 135/63; PULSE 123; RESP 24; TEMP 38.8; O2SAT 93; BMI 64.7
--- NOTE | 2020-04-05 07:00 | EKG12_ITS ---
Test Reason : CP Blood Pressure : / mmHG Vent. Rate : 117 BPM Atrial Rate : 117 BPM P-R Int : 146 ms QRS Dur : 084 ms QT Int : 306 ms P-R-T Axes : 052 059 047 degrees QTc Int : 426 ms Suspect unspecified pacemaker failure Sinus tachycardia Otherwise normal ECG Confirmed by JAIDEN CHIN, KEDAR ([id number]), news editor CAITIE RAI ([id number]) on 04/06/2020 1:49:34 PM Referred By: Confirmed By:CHANI HWANG MD
--- NOTE | 2020-04-05 07:19 | RAD_ITS ---
STUDY: X-RAY CHEST REASON FOR EXAM: Male, 34 years old. COUGH, FEVER, CP. PT THINKS HE ASPIRATED. GASTRIC REFLUX TECHNIQUE: Single AP portable view of the chest. COMPARISON: None. FINDINGS: Patchy consolidation in the right upper lobe. Mild increased markings in the right lower lobe as well. With the patient''s history of possible aspiration, these findings are supportive of the diagnosis. There is no demonstrated pleural abnormality. Normal size heart. Normal mediastinum and kathryn. Normal visualized pulmonary arteries. Normal visualized aortic arch and descending thoracic aorta. Normal visualized thoracic spine. Normal visualized ribs, clavicles, and shoulders. There is no demonstrated abnormality of the visualized soft tissue structures of the upper abdomen. RAD/Chest 1 View (Portable) IMPRESSION: Focal consolidation in the right upper lobe as well as mild increased markings at the right lung base. Electronically Signed: Ricky Knott, at 8:13 EST , Service support ,
--- NOTE | 2020-04-05 07:22 | ED.DCSUM_ITS ---
- ER Visit Summary Date of Service: 04/05/20 Chief Complaint: [Fever] History of Present Illness: The patient is a 34 M [presents to the emergency department with complaint of a fever that started in the middle of the night. Patient states that he had a mild cough yesterday. Patient states that in the middle of the night he had GERD. He does have a sore throat. He denies any body aches or headache. He denies any exposures to COVID-19. He denies recent travel. Patient does have history of cellulitis. He did have weight loss surgery on February 28. He denies any abdominal pain. He said no vomiting or diarrhea. Patient denies urinary symptoms. Patient states his temperature at home was up to 104 and he took Tylenol around 6 AM.] Physical Examination: [HEENT-PERRLA, EOMI. Cranial nerves II through XII grossly intact. TMs clear. Mucous membranes moist. No adenopathy. Pharynx with minimal erythema. No exudates. Uvula midline. No trismus. Cardiovascular-regular and tachycardic rhythm without murmur or ectopy Lungs-clear to auscultation, chest wall stable without crepitus or subcu emphysema Abdomen-normoactive bowel sounds, soft, nontender, no rebound or rigidity, no peritoneal signs. Extremities-intact ?4, normal range of motion, normal pulses, atraumatic. No rashes.] Test Results: [EKG obtained on arrival showed a sinus tachycardia with a ventricular rate of 117 bpm. Chest x-ray showed right upper lobe and right lung base infiltrate. COVID-19 testing was positive. Influenza negative and strep was negative.] Emergency Department Course and Treatment: [Patient was given Levaquin 750 mg p.o.] Treatment Plan: [Plan will be to cover patient with Levaquin for 4 more days to cover for any bacterial super imposed infection although I suspect likely this is all related to Covid. Patient advised to return if increasing shortness of breath or condition should worsen anyway. Patient currently not hypoxic. Patient nontoxic-appearing.] Patient advised to isolate and quarantine. Disposition: [Discharged home in stable condition] Impression: [COVID-19 pneumonia] This note was generated with [employer] software. It may contain incorrect words, spelling, and punctuation that were not noted in review of the chart prior to signing ED Disposition - Plan for ED Patient: Referrals: Miugel Ángel Baird MD [Primary Care Provider] -
[2020-04-05 08:01] VITALS: BP 115/63; TEMP 38.8; O2SAT 93
[2020-04-05 08:25] LABS: Color, Urine Yellow (Yellow); Glucose, Dipstick Normal (Normal); Ketone-Dipstick 15 mg/dl (Negative); Leukocyte Esterase-Dipstick 25 /ul (Negative); Nitrite-Dipstick Negative (Negative); Occult Blood-Urine Negative /ul (Negative); Protein-Dipstick 30 mg/dl (Negative); Specific Gravity, Urine 1.015 (1.002-1.030); Urine Clarity Sl. Cloudy (Clear); Urine Urobilinogen 1 mg/dl (Normal)
--- NOTE | 2020-04-05 08:26 | ED.DEP ---
ED Disposition - Plan for ED Patient: Instructions: ED URI, Viral, No Abx (Adult) Prescriptions: Levofloxacin [Levaquin] 750 mg PO DAILY #4 tab Transmission Status: Pending to [id number] Referrals: Miguel Ángel Baird MD [Primary Care Provider] - 5-7 Days
[2020-04-05 08:29] LABS: Urine Bilirubin Dipstick 1 mg/dL (Negative)
[2020-04-05] MEDS: levoFLOXacin 750 MG Tablet PO (08:36)
[2020-04-05 08:37] VITALS: O2SAT 95
[2020-04-05 08:38] LABS: Bacteria RARE /hpf (None Seen); Red Blood Cells-Urine 0-5 SEEN /hpf (0-5); Squamous Epithelial Cells - UA 0-5 SEEN /hpf (0-5); White Blood Cells 0-5 SEEN /hpf (0-5)
[2020-04-05 08:39] LABS: Mucous, Urine 2+ /hpf (<or=2+)
== END 2020-04-05 08:42 | disposition home or self-care (01) ==
LOC: ED 08:03
PROVIDERS: Emergency Provider Emergency Medicine; PCP Family Medicine
DX: U07.1 COVID-19 (principal); J12.89 Other viral pneumonia; K21.9 Gastro-esophageal reflux disease without esophagitis; I10 Essential (primary) hypertension
CPT/HCPCS: 71045; 81001; 87426; 87804; 87880; 93005; 99282

== ENCOUNTER → 2021-12-28 | Outpatient (CLI) | payer BC, SELFPAY ==
[2021-12-28 15:15] LABS: AST(SGOT) 10 U/L (15-37); Alanine Aminotransfer ALT/SGPT 26 U/L (16-61); Albumin, Serum 3.5 g/dL (3.2-5.0); Alkaline Phosphatase 75 U/L (45-117); Bilirubin, Direct 0.17 mg/dL (0.00-0.30); Globulin 3.2 g/dL (2.2-4.2); Protein, Total 6.7 g/dL (6.4-8.2)
[2021-12-30 19:06] LABS: QNTFERON TB Mitogen Value > 10.00 IU/mL (.); QNTFERON TB Nil Value 0.04 IU/mL (.); QNTFERON TB1+ Ag Value 0.04 IU/mL (.); QNTFERON TB2+ Ag Value 0.05 IU/mL (.)
[2021-12-31 08:56] LABS: QNTIFERON TB Positive Criteria Negative (Negative)
== END | disposition home or self-care (01) ==
LOC: MTLAB 11:40
PROVIDERS: PCP Family Medicine; Referring Provider Physician Assistant; Visit Provider Physician Assistant
DX: L40.0 Psoriasis vulgaris (principal); L30.1 Dyshidrosis [pompholyx]; Z79.899 Other long term (current) drug therapy
CPT/HCPCS: 36415; 80076; 86480

== ENCOUNTER → 2022-11-26 | Outpatient (CLI) | payer BC, SELFPAY ==
[2022-11-28 10:14] LABS: Hepatitis B Core Ab Total Negative (Negative); QNTFERON TB Mitogen Value > 10.00 IU/mL (.); QNTFERON TB Nil Value 0.35 IU/mL (.); QNTFERON TB1+ Ag Value 0.48 IU/mL (.); QNTFERON TB2+ Ag Value 0.31 IU/mL (.); QNTIFERON TB Positive Criteria Negative (Negative)
== END | disposition home or self-care (01) ==
LOC: MTLAB 09:25
PROVIDERS: PCP Family Medicine; Referring Provider Physician Assistant; Visit Provider Physician Assistant
DX: L40.0 Psoriasis vulgaris (principal); L71.8 Other rosacea; L30.4 Erythema intertrigo; L30.1 Dyshidrosis [pompholyx]; Z79.899 Other long term (current) drug therapy
CPT/HCPCS: 36415; 86480; 86704

== ENCOUNTER → 2024-10-23 | Outpatient (CLI) | payer BC, SELFPAY ==
--- OUTSIDE RECORDS SUMMARY | 2024-10-23 19:27 | XMS RPT_ITS | CCD ---
Author Organization [facility] Care Team Providers Care Special Assemblies Supervisor Name Role Phone MARIA T BAIRD () Unavailable Unav ailable Miguel Ángel Baird Primary Care Unavailable Mercedes Gomez Referring Unavailable Mercedes Gomez Attending Unavailable Maria T Baird MD Primary Care Provider Maria T Baird MD Primary Care Provider MARIA T BAIRD Attending Unavailab le MARIA T BAIRD Primary Care Unavailab andressa Allergies Allergy Classification Reported Allergen(s) Allergy Type Date of Onset Reaction(s) Facility (7 sources) NECTARINE; Translations: [NECTARINE] Propensity to adverse reactions to drug (disorder) 02-20-20 16 Other: See Comments [facility] Other [place] [facility] (6 sources) Sulfamethoxazole / Trimethoprim; Translations: [SULFAMETHOXAZOLE-T RIMETHOPRIM] Drug Allergy 06-01-19 20 [facility] (1 source) Sulfamethoxazole Drug Allergy 04-05-20 20 [facility] Work Phone: (1 source) Trimethoprim Drug Allergy 04-05-20 [facility] Work Phone: (1 source) PITTED FRUIT Allergy to substance 04-05-20 [facility] Work Phone: (1 source) Sulfamethoxazole Drug Allergy 04-05-20 [facility] (1 source) Trimethoprim Drug Allergy 04-05-20 [facility] (1 source) Food Allergies: Uncoded; Translations: [Food Allergies: Uncoded] Food allergy (disorder) 09-12-19 [facility] Medications Current Medications Medication Drug Class(es) Dates Sig (Normalized) Sig (Original) ascorbic acid 500 mg / ferrous sulfate 525 mg / folic acid 0.8 mg extended release oral tablet (5 sources) Vitamin C Start: 09-12-2020 Ferrous Xyjwzdj-F-Oelaw Acid (FOLITAB) 105 mg iron- 500 mg-800 mcg TbER Take by mouth 09/12/2020 Active Comment on above: Take by mouth BIPAP (5 sources) Start: 12-02-2018 BIPAP Initiate BiPAP @ 17/7 cm of water with humidification. Mask (per patient preference) optional chin strap (if indicated) , filters, tubing, humidifier and lifetime supplies. 1 Device 12/02/2018 Active Start: 12-02-2018 BIPAP Initiate BiPAP @ 17/7 cm of water with humidification. Mask (per patient preference) optional chin strap (if indicated) , filters, tubing, humidifier and lifetime supplies. 1 Device 0 12/02/2018 Active Comment on above: Initiate BiPAP @ 17/ 7 cm of water with humidification. Mask (per patient preference) optional chin strap (if indicated) , filters, tubing, humidifier and lifetime supplies. calcium citrate/vitamin D3 (CALCIUM CITRATE + D ORAL) (5 sources) calcium citrate/ vitamin D3 (CALCIUM CITRATE + D ORAL) Take by mouth. Active calcium citrate/ vitamin D3 (CALCIUM CITRATE + D ORAL) Take by mouth. 0 Active Comment on above: Take by mouth. compr.stocking,knee,long ,large (COMP STOCKING,KNEE,LONG,LARGE ) misc (5 sources) Start: 12-15-2019 compr.stocking,knee,long,lar ge (COMP STOCKING,KNEE,LONG,LARGE) misc Indications: Venous incompetence , Localized swelling of lower extremity 1 Package once daily. 1 Each 12/15/2019 Active Start: 12-15-2019 compr.stocking ,knee,long,large (COMP STOCKING,KNEE,LONG,LARGE) misc Indications: Venous incompetence , Localized swelling of lower extremity 1 Package once daily. 1 Each 0 12/15/2019 Active Comment on above: 1 Package once daily . levoFLOXacin 750 mg oral tablet (1 source) Quinolone Antimicrobial Start: 04-05-20 take 750 mg by mouth once daily Levofloxacin Active 750 MG PO DAILY April 05, 2020 1:00am Miscellaneous Medical Supply misc (5 sources) Start: 05-05-20 20 Miscellaneous Medical Supply [facility] [place] Lymphedema wraps to be worn daily on lower extremities. Dx: M79.89 2 Each 09/08/2019 Active Start: 09-08-2019 [facility] [place] Lymphedema wraps to be worn daily on lower extremities. Dx: M79.89 2 Each 0 09/08/2019 Active Comment on above: Lymphedema wraps to be worn daily on lower extremities. Dx: M79.89 multivit-min/iron/folic acid/K (BARIATRIC MULTIVITAMINS ORAL) (5 sources) multivit-min/iro n/folic acid/K (BARIATRIC MULTIVITAMINS ORAL) Take by mouth. Active multivit-min/iro n/folic acid/K (BARIATRIC MULTIVITAMINS ORAL) Take by mouth. 0 Active Comment on above: Take by mouth. pantoprazole 40 mg delayed release oral tablet (1 source) Proton Pump Inhibitor Start: 0 take 40 mg by mouth twice daily Pantoprazole Active 40 MG PO TWICE A DAY April 05, 2020 1:00am 0.83 ml risankizumab-rzaa 90.4 mg/ml prefilled syringe (5 sources) risankizumab-rza a (SKYRIZI) 75 mg/0.83 mL syrg Inject subcutaneously. Active Comment on above: Inject subcutaneousl y. sertraline 50 mg oral tablet (2 sources) Serotonin Reuptake Inhibitor Start: 4 End: 4 take 1 tablet by mouth once daily sertraline (ZOLOFT) 50 mg tablet Indications: MERVIN (generalized anxiety disorder) Take 1 tablet by mouth once daily. 90 tablet 12/23/2023 03/22/2024 Active Start: 04-25-2023 take 1 tablet by tenisha th once daily sertraline (ZOLOFT) 50 mg tablet Indications: MERVIN (generalized anxiety disorder) Take 1 tablet by mouth once daily. 30 tablet 2 04/25/2023 Active Comment on above: Take 1 tablet by tenisha th once daily. Thiamine (5 sources) thiamine HCl ( TAMIN B-1 ORAL) Take by mouth. Active thiamine HCl ( TAMIN B-1 ORAL) Take by mouth. 0 Active Comment on above: Take by mouth. ursodiol 300 mg oral capsule (1 source) Bile Acid Start: 04-05-2020 take 300 mg by mouth twice daily Ursodiol Active 300 MG PO TWICE A DAY April 05, 2020 1:00am Completed/Discontinued Medications Medication Drug Class(es) Dates Sig (Normalized) Sig (Original) amLODIPine 10 mg oral tablet (4 sources) Dihydropyridine Calcium Channel Yvette Start: 04-02-2022 End: 01-25-2023 take 1 tablet by mouth once daily amLODIPine (NORVASC) 10 mg tablet Take 1 tablet by mouth once daily. 90 tablet 0 04/02/2022 01/25/2023 Discontinued Start: 01-30-2020 End: 03-07-2022 take 1 tablet by mouth once daily amLODIPine (NORVASC) 10 mg tablet Take 1 tablet by mouth once daily. 90 tablet 1 09/08/2021 03/07/2022 Active Start: 09-01-2019 End: 10-01-2019 take 10 mg by mouth once daily Amlodipine Discontinued 10 MG PO DAILY 30 September 01, 2019 12:00am October 01, 2019 12:02am Comment on above: Take 1 tablet by tenisha th once daily. cefdinir 300 mg oral capsule (1 source) Cephalosporin Antibacterial Start: 0 End: 0 take 300 mg by mouth every twelve hours Cefdinir Discontinued 300 MG PO EVERY 12 HOURS 14 September 01, 2019 12:00am September 08, 2019 12:02am Problems Active Problems Problem Classification Problem Date Documented Da te Episodic/Chronic Anxiety disorders (7 sources) Generalized anxiety disorder; Translations: [Generalized anxiety disorder] Onset: 01-25-2023 01-25-2023 Chronic Essential hypertension (7 sources) Hypertensive disorder; Translations: [Essential (primary) hypertension] 11-10-2019 Chronic Immunizations and screening for infectious disease (1 source) Patient encounter status; Translations: [Encounter for immunization] 01-25-2023 Episodic Malaise and fatigue (1 source) Other fatigue; Translations: [Other fatigue] Onset: 01-21-2018 Episodic Nutritional deficiencies (6 sources) Vitamin D deficiency; Translations: [Vitamin D deficiency, unspecified] Onset: 12-02-2019 12-02-2019 Chronic Other diseases of veins and lymphatics (5 sources) Peripheral venous insufficiency; Translations: [Venous insufficiency (chronic) (peripheral)] 12-09-2019 Episodic Other gastrointestinal disorders (1 source) History of bariatric surgical procedure; Translations: [Bariatric surgery status] 01-25-2023 Episodic Other inflammatory condition of skin (6 sources) Psoriasis; Translations: [Psoriasis, unspecified] 11-10-2019 Chronic Other inflammatory condition of skin (1 source) Psoriasis vulgaris; Translations: [Psoriasis vulgaris] Onset: 09-11-2022 Chronic Other lower respiratory disease (1 source) Snoring; Translations: [Snoring] Onset: 12-11-2017 Episodic Other nutritional; endocrine; and metabolic disorders (1 source) Morbid (severe) obesity due to excess calories; Translations: [Morbid (severe) obesity due to excess calories] Onset: 12-11-2017 Chronic Other nutritional; endocrine; and metabolic disorders (12 sources) Morbid obesity; Translations: [Morbid (severe) obesity due to excess calories] Onset: 12-11-2017 12-11-2017 Chronic Other nutritional; endocrine; and metabolic disorders (5 sources) Severe obesity; Translations: [Morbid (severe) obesity due to excess calories] Onset: 11-23-2019 11-23-2019 Chronic Other nutritional; endocrine; and metabolic disorders (5 sources) Insulin resistance; Translations: [Metabolic syndrome] Onset: 12-02-2019 12-02-2019 Chronic Other nutritional; endocrine; and metabolic disorders (1 source) Metabolic syndrome Chronic Other upper respiratory infections (2 sources) Acute upper respiratory infection, unspecified; Translations: [Acute pharyngitis, unspecified] Onset: 04-18-2024 Episodic Residual codes; unclassified (6 sources) Sleep apnea; Translations: [Sleep apnea, unspecified] Onset: 01-27-2018 01-27-2018 Chronic Residual codes; unclassified (5 sources) Sleep hypoventilation; Translations: [Sleep-related hypoventilation] Onset: 01-27-2018 01-27-2018 Chronic Residual codes; unclassified (7 sources) Obstructive sleep apnea syndrome; Translations: [Obstructive sleep apnea (adult) (pediatric)] 11-10-2019 Chronic Thyroid disorders (6 sources) Subclinical hypothyroidism; Translations: [Other specified hypothyroidism] Onset: 12-11-2017 12-11-2017 Chronic Unclassified (1 source) Body mass index (BMI) 70 or greater, adult; Translations: [Body mass index (bmi) 70 or greater, adult] Onset: 12-11-2017 Chronic Unclassified (1 source) Sleep apnea, unspecified; Translations: [Sleep apnea, unspecified] Onset: 01-21-2018 Past or Other Problems Problem Classification Problem Date Documented Da te Episodic/Chronic Other lower respiratory disease (5 sources) Snoring; Translations: [Snoring] Onset: 12-11-2017 12-11-2017 Episodic Other nutritional; endocrine; and metabolic disorders (1 source) Body mass index 40+ - severely obese; Translations: [Morbid (severe) obesity due to excess calories] Onset: 08-02-2017 Resolved: 12-11-2017 12-11-2017 Chronic Skin and subcutaneous tissue infections (6 sources) Cellulitis and abscess of lower limb; Translations: [Cellulitis of unspecified part of limb] Onset: 09-02-2019 09-02-2019 Episodic Results Test Name Value Interpretation Reference Range Facility [facility] 04-18-2024 CNOV Office Visit (FAMPWS ) KHURRAM CERDA ([id number]) 1985 M Date Time Provider Department 04/18/24 9:20 AM MARIA T BAIRD [facility] During your visit today, we recorded the following information about you: Temperature Pulse Respiration Blood pressure 98 degrees 69/minute 18/minute 128/84 Weight 161.5 kg Maria T Baird MD 04/19/2024 6:42 AM Signed Chief Complaint Patient presents with: Sore Throat: X 3 days HPI Khurramyarely Cerda is a 38 year old male who presents here today for Above Complaints.. Patient complaining of sore throat and chills which started about 3 days ago. Associated with productive cough, white streaks on his tonsils, nasal congestion, rhinorrhea, tactile fever. Treated with tylenol and Nyquil which helps with sleep. Denies headache, myalgias, fatigue, new loss of taste/smell, nausea, vomiting, diarrhea, joint pain, rash, inability to handle secretions. Feels like sore throat is worsening. sick with similar symptoms. Admits to recent travel to [place] last weekend. No known COVID or flu exposure. Has not tested for COVID. Past medical history, appointments, medications, allergies reviewed. Previous Medical History PAST MEDICAL HISTORY Diagnosis Date MERVIN (generalized anxiety disorder) History of tear of ACL (anterior cruciate ligament) Hypertension Insulin resistance 12/02/2019 Lymphedema Morbid obesity (HCC) s/p bariatric surgery ALICE (obstructive sleep apnea) Psoriasis [facility] Subclinical hypothyroidism Venous incompetence Vitamin D deficiency 12/02/2019 Previous Surgical History PAST SURGICAL HISTORY Procedure Laterality Date FINGER SURGERY HX Left 05/06/2002 5th digit fracture repair KNEE SURGERY HX Left 05/06/2006 ACL repair PAST SURGICAL HISTORY OF 02/2020 GASTRECTOMY, GASTRIC RESTRICTIVE PARTIAL (50 TO 100 CM COMMON CHANNEL) TO LIMIT ABSORPTION Family History FAMILY HISTORY Problem Relation Age of Onset Obesity Mother Diabetes Father Obesity Father Diabetes Maternal Grandfather Obesity Paternal Grandmother Diabetes Paternal Grandfather Coronary Artery Disease Paternal Grandfather Obesity Paternal Grandfather Patient Allergies ALLERGIES Allergen Reactions Bactrim Ds [Sulfame* Hives Nectarine Other: See Comments Fresh: Plums, Cherries and Nectarines cause sore throat Current Medications Current Outpatient Medications on File Prior to Visit Medication Sig risankizumab-rzaa (SKYRIZI) 75 mg/0.83 mL syrg Inject subcutaneously. multivit-min/iron/folic acid/K (BARIATRIC MULTIVITAMINS ORAL) Take by mouth. calcium citrate/vitamin D3 (CALCIUM CITRATE + D ORAL) Take by mouth. thiamine HCl (VITAMIN B-1 ORAL) Take by mouth. compr.stocking,knee,long,large (COMP STOCKING,KNEE,LONG,LARGE) misc 1 Package once daily. BIPAP Initiate BiPAP @ 17/7 cm of water with humidification. Mask (per patient preference) optional chin strap (if indicated) , filters, tubing, humidifier and lifetime supplies. sertraline (ZOLOFT) 50 mg tablet Take 1 tablet by mouth once daily. Ferrous Vnnbuvp-B-Uwlsk Acid (FOLITAB) 105 mg iron- 500 mg-800 mcg TbER Take by mouth Miscellaneous Medical Supply [facility] [place] Lymphedema wraps to be worn daily on lower extremities. Dx: M79.89 No current facility-administered medications on file prior to visit. Social History Social History Tobacco Use Smoking status: Never Smokeless tobacco: Never Vaping Use Vaping status: Never Used Substance Use Topics Alcohol use: Not Currently Comment: once every 3 months Drug use: No Review of Symptoms REVIEW OF SYSTEMS See HPI EXAM: BP 128/84 Pulse 69 Temp 36.7 ?C (98 ?F) (Temporal) Resp 18 Wt (!) 161.5 kg (356 lb) SpO2 98% BMI 49.58 kg/m? General Appearance: Ill appearing, non toxic. Congested, but not hot potato voice. Skin: Skin color, texture, turgor normal, no suspicious rashes or lesions. Head: Normocephalic, no masses, lesions, tenderness or abnormalities. Eyes: Anicteric sclera. Pupils are equally round and reactive to light. Extraocular movements are intact. . Ears: External ears normal, canals clear. Nose/Sinuses: Nares normal, septum midline, mucosa normal, no drainage or sinus tenderness. Oropharynx: Negative findings: lips normal without lesions, buccal mucosa normal, gums healthy, teeth intact, non-carious, palate normal, tongue midline and normal, no uvula deviation, no unilateral tonsillar hypertrophy or abscess and Positive findings: moderate oropharyngeal erythema, tonsillar hypertrophy 1+, exudates present. Neck: Supple, no adenopathy; thyroid symmetric, normal size, no bruits. Lungs: Lungs clear to auscultation. No wheezing, rhonchi, rales.. Heart: RRR without murmur, gallop, or rubs. No ectopy. Health Maintenance List Depression Screening Never done BP Controlled (<130/80) Never done (more content not included)... Normal [facility] COVID AND INFLUENZA A/B AND RSV PCR, ROUTINEon 04-18-2024 SARS-CoV-2 (COVID-19) RNA PATEL+probe Ql (Unsp spec) SARS-COV-2 (AGENT OF COVID-19) RNA: Not detected INFLUENZA A RNA: Not detected INFLUENZA B RNA: Not detected RESPIRATORY SYNCYTIAL VIRUS (RSV) RNA: Not detected Normal [facility] Comment on above: Performed By: #### CVFLRS #### [facility] CLIA [id number] [address] [place] [address] [place] Comprehensive metabolic 2000 panelon 01-26-2023 Albumin [Mass/Vol] 4.3 g/dL 3.9 - 4.9 g/dL [facility] ALP [Catalytic activity/Vol] 76 U/L 38 - 113 U/L [facility] ALT [Catalytic activity/Vol] 22 U/L 10 - 54 U/L [facility] Anion gap [Moles/Vol] 10 mmol/L 9 - 18 mmol/L [facility] AST [Catalytic activity/Vol] 16 U/L 14 - 40 U/L [facility] Bilirubin [Mass/Vol] 0.9 mg/dL 0.2 - 1.3 mg/dL [facility] Calcium [Mass/Vol] 9.1 mg/dL 8.5 - 10.2 mg/dL [facility] Chloride [Moles/Vol] 105 mmol/L 97 - 105 mmol/L [facility] CO2 [Moles/Vol] 25 mmol/L 22 - 30 mmol/L [facility] Creatinine [Mass/Vol] 0.84 mg/dL 0.73 - 1.22 mg/dL [facility] Estimated Glomerular Filtration Rate 115 mL/min/1.73m >=60 mL/min/1.73 m [facility] Glucose [Mass/Vol] 93 mg/dL 74 - 99 mg/dL [facility] Potassium [Moles/Vol] 4.8 mmol/L 3.7 - 5.1 mmol/L [facility] Protein [Mass/Vol] 6.5 g/dL 6.3 - 8.0 g/dL [facility] Sodium [Moles/Vol] 140 mmol/L 136 - 144 mmol/L [facility] Urea nitrogen [Mass/Vol] 18 mg/dL 9 - 24 mg/dL [facility] Lipid 1996 panelon Cholesterol [Mass/Vol] 126 mg/dL <200 mg/dL [facility] Cholesterol in HDL [Mass/Vol] 37 mg/dL Low >39 mg/dL [facility] Cholesterol in LDL [Mass/Vol] 81 mg/dL <100 mg/dL [facility] Cholesterol in LDL/Cholesterol in HDL [Mass ratio] 2.19 {ratio} <2.54 [facility] Cholesterol in VLDL [Mass/Vol] 8 mg/dL <30 mg/dL [facility] Cholesterol non HDL [Mass/Vol] 89 mg/dL <130 mg/dL [facility] Cholesterol.tot al/Cholesterol in HDL [Mass ratio] 3.41 {ratio} <5.10 [facility] Fasting Time 13 hrs [facility] Triglyceride [Mass/Vol] 41 mg/dL <150 mg/dL [facility] TSH BLDon 01-26-2023 TSH Qn 1.910 m[IU]/L 0.270 - 4.200 mIU/L [facility] CBC W Auto Differential pane l (Bld)on 01-25-2023 Basophils (Bld) [#/Vol] 0.08 10*3/uL <0.11 k/uL [facility] Basophils/100 WBC (Bld) 1.3 % [facility] Differential cell count method Nom (Bld) Auto [facility] Eosinophils (Bld) [#/Vol] 0.15 10*3/uL <0.46 k/uL [facility] Eosinophils/100 WBC (Bld) 2.5 % [facility] Erythrocyte distribution width (RBC) [Ratio] 12.7 % 11.5 - 15.0 % [facility] Hematocrit (Bld) [Volume fraction] 40.5 % 39.0 - 51.0 % [facility] Hemoglobin (Bld) [Mass/Vol] 13.1 g/dL 13.0 - 17.0 g/dL [facility] Immature granulocytes (Bld) [#/Vol] 0.03 10*3/uL <0.10 k/uL [facility] Immature granulocytes/10 0 WBC (Bld) 0.5 % [facility] Lymphocytes (Bld) [#/Vol] 1.55 10*3/uL 1.00 - 4.00 k/uL [facility] Lymphocytes/100 WBC (Bld) 25.5 % [facility] MCH (RBC) [Entitic mass] 29.3 pg 26.0 - 34.0 pg [facility] MCHC (RBC) [Mass/Vol] 32.3 g/dL 30.5 - 36.0 g/dL [facility] MCV (RBC) [Entitic vol] 90.6 fL 80.0 - 100.0 fL [facility] Monocytes (Bld) [#/Vol] 0.56 10*3/uL <0.87 k/uL [facility] Monocytes/100 WBC (Bld) 9.2 % [facility] Neutrophils (Bld) [#/Vol] 3.71 10*3/uL 1.45 - 7.50 k/uL [facility] Neutrophils/100 WBC (Bld) 61.0 % [facility] Nucleated RBC (Bld) [#/Vol] <0.01 k/uL [facility] Nucleated RBC/100 WBC (Bld) [Ratio] 0.0 /100 WBC [facility] Platelet mean volume (Bld) [Entitic vol] 11.0 fL 9.0 - 12.7 fL [facility] Platelets (Bld) [#/Vol] 223 10*3/uL 150 - 400 k/uL [facility] RBC (Bld) [#/Vol] 4.47 10*6/uL 4.20 - 6.00 m/uL [facility] WBC (Bld) [#/Vol] 6.08 10*3/uL 3.70 - 11.00 k/uL [facility] HbA1c (Bld)on 01-25-2023 Average glucose Estimated from glycated hemoglobin (Bld) [Mass/Vol] 105 mg/dL [facility] HbA1c (Bld) [Mass fraction] 5.3 % 4.3 - 5.6 % [facility] Quantiferon TB-Gold+on 12-31 QFT TB GOLD+ Comment Normal . [facility] Comment on above: Result Comment: QuantiFERON-TB Gold Plus is a qualitative indirect test for M tuberculosis infection (including disease) and is intended for use in conjunction with risk assessment, radiography, and other medical and diagnostic evaluations. The QuantiFERON-TB Gold Plus result is determined by subtracting the Nil value from either TB antigen (Ag) value. The Mitogen tube serves as a control for the test. Performed By: #### L 3400.8000, L500.3400 #### [facility] [address] [place], [address] QFT TB POS CRIT Negative Normal Negative [facility] Comment on above: Result Comment: No response to M tubercu losis antigens detected. Infection with M tuberculosis is unlikely, but high risk individuals should be considered for additional testing (ATS/IDSA/CDC Clinical Practice Guidelines, 2017). The reference range is an Antigen minus Nil result of <0.35 IU/mL. The specimen received for QuantiFERON testing was incubated by the ordering institution. Specific procedures outlined in our Directory of Services and in the package insert for the QuantiFERON Gold (In Tube) test must be followed to enable for proper stimulation of cells for the production of interferon gamma. Chemiluminescence immunoassay methodology Performed at: [facility] [id number] Commercial Director: Brayan Baires PhD, Phone: [phone] Performed By: #### L [id number], L500.3400 #### [facility] [address] [place], [address] Quantiferon TB-Gold+on 12-30 QFT MITOGEN SHAYY > 10.00 Normal . [facility] Comment on above: Performed By: #### [id number], L500.3400 #### [facility] [address] [place], [address] QFT NIL VALUE 0.04 IU/mL Normal . [facility] Comment on above: Performed By: #### [id number], L500.3400 #### [facility] [address] [place], [address] QFT TB1+ AG SHAYY 0.04 IU/mL Normal . [facility] Comment on above: Performed By: #### [id number], [id number] #### [facility] [address] [place], [address] QFT TB2+ AG SHAYY 0.05 IU/mL Normal . [facility] Comment on above: Performed By: #### [id number], [id number] #### [facility] [address] [place], [address] Basophil percentageon 2021 Bilirubin [Mass/Vol] 0.80 mg/dL 0.20-1.00 [facility] Work Phone: Comment on above: For patients on eltrombopag therapy, use of Dimension Cunningham TBIL is not recommended. Protein [Mass/Vol] 6.7 g/dL 6.4-8.2 [facility] Work Phone: Direct bilirubinon 2 Bilirubin.direc t [Mass/Vol] 0.17 mg/dL 0.00-0.30 [facility] Work Phone: Laboratory - Chemistry and C hemistry - challengeon 12-28-2021 ALP [Catalytic activity/Vol] 75 U/L 45-117 [facility] Work Phone: ALT [Catalytic activity/Vol] 26 U/L 16- [facility] Work Phone: Globulin (S) [Mass/Vol] 3.2 g/dL 2.2-4.2 [facility] Work Phone: Liver Profileon 12-28-2021 Albumin [Mass/Vol] 3.5 g/dL Normal 3.2-5.0 [facility] Comment on above: Performed By: #### [id number], L500.3400 #### [facility] [address] [place], [address] ALK P 75 U/L Normal 45-117 [facility] Comment on above: Performed By: #### [id number], L500.3400 #### [facility] [address] [place], [address] ALT [Catalytic activity/Vol] 26 U/L Normal 16- [facility] Comment on above: Performed By: #### [id number], L500.3400 #### [facility] [address] [place], [address] AST [Catalytic activity/Vol] 10 U/L Low 15-37 [facility] Comment on above: Performed By: #### [id number], [id number] #### [facility] [address] [place], [address] Bilirubin [Mass/Vol] 0.80 mg/dL Normal 0.20-1.00 [facility] Comment on above: Result Comment: For patients on eltrombo pag therapy, use of Dimension Cunningham TBIL is not recommended. Performed By: #### L [id number], [id number] #### [facility] [address] [place], [address] Bilirubin.direc t [Mass/Vol] 0.17 mg/dL Normal 0.00-0.30 [facility] Comment on above: Performed By: #### [id number], [id number] #### [facility] [address] [place], [address] Globulin (S) [Mass/Vol] 3.2 g/dL Normal 2.2-4.2 [facility] Comment on above: Performed By: #### [id number], [id number] #### [facility] [address] [place], [address] T PROT 6.7 g/dL Normal 6.4-8.2 [facility] Comment on above: Performed By: #### [id number], [id number] #### [facility] [address] [place], [address] Qualitative QuantiFERON-TB g old in tube teston 12-28-2021 M. tuberculosis tuberculin stim IFN-g Ql (Bld) 0.04 IU/mL . [facility] Work Phone: Serum or plasma albumin avni urement (mass/volume)on 12-28-2021 Albumin [Mass/Vol] 3.5 g/dL 3.2-5.0 [facility] Work Phone: Thin prep Papanicolaou smear with manual screeningon 12-28-2021 Thin prep Papanicolaou smear with manual screening 10 U/L 15-37 [facility] Work Phone: Thin prep Papanicolaou smear with manual screening Comment . [facility] Work Phone: Comment on above: QuantiFERON-TB Gold Plus is a qualitativ e indirect test forM tuberculosis infection (including disease) and isintended for use in conjunction with risk assessment,radiography, and other medical and diagnostic evaluations.The QuantiFERON-TB Gold Plus result is determined bysubtracting the Nil value from either TB antigen (Ag)value. The Mitogen tube serves as a control for the test. Thin prep Papanicolaou smear with manual screening 0.05 IU/mL . [facility] Work Phone: Thin prep Papanicolaou smear with manual screening 0.04 IU/mL . [facility] Work Phone: Thin prep Papanicolaou smear with manual screening > 10.00 IU/mL . [facility] Work Phone: Thin prep Papanicolaou smear with manual screening Negative Negative [facility] Work Phone: Comment on above: No response to M tuberculosis antigens d etected.Infection with M tuberculosis is unlikely, but high riskindividuals should be considered for additional testing(ATS/IDSA/CDC Clinical Practice Guidelines, 2017). Thereference range is an Antigen minus Nil result of <0.35IU/mL.The specimen received for QuantiFERON testing was incubatedby the ordering institution. Specific procedures outlinedin our Directory of Services and in the package insert forthe QuantiFERON Gold (In Tube) test must be followed toenable for proper stimulation of cells for the productionof interferon gamma. Chemiluminescence immunoassaymethodologyPerformed at: [facility] [id number] Director: Brayan Baires PhD, Phone: [phone] Vital Signs Date Time Vital Sign Value Performing Clinician Catarinoi elizabeth 04-25-2023 09:56-0500 Body weight 177.45 kg Maria T Baird MD Work Phone: [facility] 04-25-2023 09:56-0500 Diastolic blood pressure 84 mm[Hg] Maria T Baird MD Work Phone: [facility] 04-25-2023 09:56-0500 Heart rate 65 /min Maria T Baird MD Work Phone: [facility] 04-25-2023 09:56-0500 Respiratory rate 18 /min Maria T Baird MD Work Phone: [facility] 04-25-2023 09:56-0500 SaO2% (BldA) [Mass fraction] 97 % Maria T Baird MD Work Phone: [facility] 04-25-2023 09:56-0500 Systolic blood pressure 126 mm[Hg] Maria T Baird MD Work Phone: [facility] 01-25-2023 10:08-0400 Body weight 180.71 kg Maria T Baird MD Work Phone: [facility] 01-25-2023 10:08-0400 Diastolic blood pressure 86 mm[Hg] Maria T Baird MD Work Phone: [facility] 01-25-2023 10:08-0400 Heart rate 88 /min Maria T Baird MD Work Phone: [facility] 01-25-2023 10:08-0400 Respiratory rate 16 /min Maria T Baird MD Work Phone: [facility] 01-25-2023 10:08-0400 SaO2% (BldA) [Mass fraction] 97 % Maria T Baird MD Work Phone: [facility] 01-25-2023 10:08-0400 Systolic blood pressure 126 mm[Hg] Maria T Baird MD Work Phone: [facility] Encounters Encounter Date Encounter Type Care Provider Facility Start: 04-18-2024 End: 04-18-2024 ambulatory MARIA T BAIRD Facility:[facility] Start: 12-22-2023 End: 12-23-2023 Refill Maria T Baird MD Work Phone: [facility] Comment on above: Refill Request Start: 04-25-2023 End: 04-25-2023 Patient encounter procedure Maria T Baird MD Work Phone: [facility] Comment on above: MREVIN (generalized anx iety disorder) (Primary Dx) Start: 01-25-2023 Telephone encounter [facility] Comment on above: Consult (Patient Out reach [facility]) Start: 01-25-2023 End: 01-25-2023 Patient encounter procedure Maria T Baird MD Work Phone: [facility] Comment on above: Annual physical exam (Primary Dx); Primary hypertension; ALICE (obstructive sleep apnea); Psoriasis; Severe sleep apnea; Subclinical hypothyroidism; Morbid obesity (HCC); S/P bariatric surgery; Vitamin D deficiency; MERVIN (generalized anxiety disorder); Encounter for immunization Start: 12-28-2021 End: 12-28-2021 ambulatory Miguel Ángel Baird [facility] Work Phone: Start: 12-28-2021 End: 12-28-2021 Patient encounter procedure [facility] Start: 09-07-2021 Refill Love Griffith APRN.IMAGE ASSEMBLER Work Phone: [facility] Comment on above: Refill Request Start: 01-21-2018 End: 01-29-2018 Patient encounter MARIA T GUERRIER) [facility] Procedures Date Procedure Procedure Detail Performing Clinician Start: 01-25-2023 Lipid 1996 panel - S betty or Plasma Patel STONER Start: 04-01-2020 Adult depression screening assessment Love Griffith APRN.IMAGE ASSEMBLER Work Phone: Plan of Treatment Date Care Activity Detail Author Start: 01-25-2033 Urine microalbumin profile DTaP,Tdap,Td Vaccine (3 - Td or Tdap) [facility] Start: 01-26-2028 Lipid 1996 panel - S betty or Plasma Lipid Screening [facility] Start: 01-26-2028 Lipid panel Lipid Screening [facility] Start: 04-25-2024 Annual PCP Team Fire Tender minoo Disease Visit Annual PCP Team Chronic Disease Visit [facility] Start: 01-26-2024 Annual PCP Team Fire Tender minoo Disease Visit Annual PCP Team Chronic Disease Visit [facility] Start: 01-26-2024 Covid-19 Vaccine () Covid-19 Vaccine () [facility] Comment on above: Postponed from 01/04 (Declined at this time) Start: 01-26-2024 Covid-19 Vaccine (3 - Booster for Richie series) Covid-19 Vaccine (3 - Booster for Richie series) [facility] Comment on above: Postponed from 06/17 (Declined at this time) Start: 01-26-2024 Hepatitis B Vaccine (1 of 3 - 19+ 3-dose series) Hepatitis B Vaccine (1 of 3 - 19+ 3-dose series) [facility] Comment on above: Postponed from 11/29 (Declined at this time) Start: 01-26-2024 Hepatitis B Vaccine (1 of 3 - 3-dose series) Hepatitis B Vaccine (1 of 3 - 3-dose series) [facility] Comment on above: Postponed from 11/29 (Declined at this time) Start: 01-05-2024 Influenza vaccination Influenza Vacc ine (#1) [facility] Start: 2023 Lipid 1996 panel - S betty or Plasma Lipid Screening [facility] Start: 2023 LIPID SCREEN LIPID SCREEN [facility] Start: 11-03-2023 Influenza vaccination Influenza Vacc ine (#1) [facility] Comment on above: Postponed from 01/04 (Declined at this time) Start: 01-25-2023 End: 03-27-2023 25-hydroxyvitamin D3 [Mass/volume] in Serum or Plasma [facility] Work Phone: Comment on above: Expected: 01/25/2023 , Expires: 03/27/2023 Start: 05-04-2022 ANNUAL PCP TEAM CRUSHER FOREMAN MINOO DISEASE VISIT ANNUAL PCP TEAM CHRONIC DISEASE VISIT [facility] Start: 01-04-2022 Influenza vaccination INFLUENZ A (Season Ended) [facility] Start: 10-21-2021 Urine microalbumin profile DTAP,TDAP,TD (2 - Td or Tdap) [facility] Start: 04-01-2021 Adult depression screening assessment DEPRESSION SCREENING [facility] Start: 11-30-2003 BP CONTROLLED (<130/80) BP CON TROLLED (<130/80) [facility] Start: 11-30-2003 Depression Screening Depression Scre ening [facility] Immunizations Immunization Date Immunization Notes Care Provider Jmaie more 01-25-2023 tetanus toxoid, redu edward diphtheria toxoid, and acellular pertussis vaccine, adsorbed Patel Epps [facility] 12-04-2021 influenza virus vaccine, unspecified formulation Patel Agostohubert [facility] 03-07-2020 influenza virus vaccine, unspecified formulation Love Podlogar DIRECTOR OF HOME CARE HOSPICE.IMAGE ASSEMBLER Work Phone: [facility] Work Phone: 10-22-2011 tetanus toxoid, redu edawrd diphtheria toxoid, and acellular pertussis vaccine, adsorbed Love Podlogar DIRECTOR OF HOME CARE HOSPICE.IMAGE ASSEMBLER Work Phone: [facility] Payers Date Payer Category Payer Self-pay [id number] 2020 Unknown [employer] PPO OOS [id number] 2020-Present [phone] [address] [place] [address] PPO [id number] 2020 Unknown [employer] PPO OOS [id number] 2020-Present [phone] [address] [place] [address] PPO [id number] 2020 Unknown [id number] Unknown [id number] Social History Date Type Detail Facility Start: 07-13-2015 End: 01-25-2023 Tobacco smoking status NHIS Never smoked tobacco [facility] Work Phone: Start: 07-13-2015 End: 01-25-2023 Tobacco use and exposure Smokeless tobacco non-user [facility] Work Phone: Start: 05-04-2021 End: 04-25-2023 Alcohol intake Ex-drinker (finding) [facility] Start: 02-26-2020 End: 03-10-2021 History SDOH Alcohol Frequency 1 [facility] Start: 02-20-2016 History SDOH Alcohol Comment once every 3 months [facility] Start: 09-07-2019 End: 03-10-2021 History SDOH Social Connections Membership 2 [facility] Start: 09-07-2019 History SDOH Social Connections Living 3 [facility] Start: 11-10-2019 History SDOH Physical Activity DPW 5 [facility] Start: 02-15-2020 End: 03-01-2020 History SDOH Physical Activity MPS 4 [facility] Start: 02-14-2020 Education 16 [facility] Start: 1985 Sex Assigned At Male [facility] Start: 04-05-2020 Tobacco smoking status NHIS Unknown if ever smoked [facility] Work Phone: Start: 05-15-2019 None [facility] Work Phone: Start: 05-15-2019 Spouse/ Significant Other [facility] Work Phone: Start: 04-05-2020 Non-smoker [facility] Work Phone: Start: 04-10-2020 End: 01-18-2023 History of Social function [facility] Start: 04-10-2020 End: 01-18-2023 [facility] [employer] [facility] Has the [employer], [employer], or [employer] threatened to shut off services in your home in past 12Mo No [facility] Do you belong to any clubs or organizations such as nondenominational groups, unions, fraternal or athletic groups, or school groups? Yes [facility] Are you now , , , , never or living with a partner? [facility] How often to you hav e a drink containing alcohol? Never [facility] How many standard dr inks containing alcohol do you have on a typical day? Patient does not drink [facility] Do you feel stress - tense, restless, nervous, or anxious, or unable to sleep at night because your mind is troubled all the time - these days [OSQ] To some extent [facility] (I/We) worried wheth er (my/our) food would run out before (I/we) got money to buy more. Never true [facility] Start: 02-25-2020 Gender identity Identifies as male gender (finding) [facility] Start: 02-25-2020 Sexual orientation Heterosexual (finding) [facility] Clinical Notes 08-02-2017 to 04-18-2024 Telephone Encounter - Westley Ko LPN - 12/23/2023 12:03 PM EDTTelephone Encounter - Westley Ko LPN - 12/23/2023 12:03 PM Maria T Mejia MD - 04/25/2023 10:00 AM EST Note Date & Type Note Facility 04-18-2024 Note HNO ID: [id number] Author: MARIA T BAIRD MD Service: ? Author Type: Physician Type: Progress Notes Filed: 04/19/2024 06:42 Note Text: Chief Complaint Patient presents with: Sore Throat: X 3 days HPI Khurram Cerda is a 38 year old male who presents here today for Above Complaints.. Patient complaining of sore throat and chills which started about 3 days ago. Associated with productive cough, white streaks on his tonsils, nasal congestion, rhinorrhea, tactile fever. Treated with tylenol and Nyquil which helps with sleep. Denies headache, myalgias, fatigue, new loss of taste/smell, nausea, vomiting, diarrhea, joint pain, rash, inability to handle secretions. Feels like sore throat is worsening. sick with similar symptoms. Admits to recent travel to [place] last weekend. No known COVID or flu exposure. Has not tested for COVID. Past medical history, appointments, medications, allergies reviewed. Previous Medical History PAST MEDICAL HISTORY Diagnosis Date MERVIN (generalized anxiety disorder) History of tear of ACL (anterior cruciate ligament) Hypertension Insulin resistance 12/02/2019 Lymphedema Morbid obesity (HCC) s/p bariatric surgery ALICE (obstructive sleep apnea) Psoriasis [facility] Subclinical hypothyroidism Venous incompetence Vitamin D deficiency 12/02/2019 Previous Surgical History PAST SURGICAL HISTORY Procedure Laterality Date FINGER SURGERY HX Left 05/06/2002 5th digit fracture repair KNEE SURGERY HX Left 05/06/2006 ACL repair PAST SURGICAL HISTORY OF 02/2020 GASTRECTOMY, GASTRIC RESTRICTIVE PARTIAL (50 TO 100 CM COMMON CHANNEL) TO LIMIT ABSORPTION Family History FAMILY HISTORY Problem Relation Age of Onset Obesity Mother Diabetes Father Obesity Father Diabetes Maternal Grandfather Obesity Paternal Grandmother Diabetes Paternal Grandfather Coronary Artery Disease Paternal Grandfather Obesity Paternal Grandfather Patient Allergies ALLERGIES Allergen Reactions Bactrim Ds [Sulfame* Hives Nectarine Other: See Comments Fresh: Plums, Cherries and Nectarines cause sore throat Current Medications Current Outpatient Medications on File Prior to Visit Medication Sig risankizumab-rzaa (SKYRIZI) 75 mg/0.83 mL syrg Inject subcutaneously. multivit-min/iron/folic acid/K (BARIATRIC MULTIVITAMINS ORAL) Take by mouth. calcium citrate/vitamin D3 (CALCIUM CITRATE + D ORAL) Take by mouth. thiamine HCl (VITAMIN B-1 ORAL) Take by mouth. compr.stocking,knee,long,large (COMP STOCKING,KNEE,LONG,LARGE) misc 1 Package once daily. BIPAP Initiate BiPAP @ 17/7 cm of water with humidification. Mask (per patient preference) optional chin strap (if indicated) , filters, tubing, humidifier and lifetime supplies. sertraline (ZOLOFT) 50 mg tablet Take 1 tablet by mouth once daily. Ferrous Qfounuz-Q-Xoyam Acid (FOLITAB) 105 mg iron- 500 mg-800 mcg TbER Take by mouth Miscellaneous Medical Supply [facility] [place] Lymphedema wraps to be worn daily on lower extremities. Dx: M79.89 No current facility-administered medications on file prior to visit. Social History Social History Tobacco Use Smoking status: Never Smokeless tobacco: Never Vaping Use Vaping status: Never Used Substance Use Topics Alcohol use: Not Currently Comment: once every 3 months Drug use: No Review of Symptoms REVIEW OF SYSTEMS See HPI EXAM: BP 128/84 Pulse 69 Temp 36.7 ?C (98 ?F) (Temporal) Resp 18 Wt (!) 161.5 kg (356 lb) SpO2 98% BMI 49.58 kg/m? General Appearance: Ill appearing, non toxic. Congested, but not hot potato voice. Skin: Skin color, texture, turgor normal, no suspicious rashes or lesions. Head: Normocephalic, no masses, lesions, tenderness or abnormalities. Eyes: Anicteric sclera. Pupils are equally round and reactive to light. Extraocular movements are intact. . Ears: External ears normal, canals clear. Nose/Sinuses: Nares normal, septum midline, mucosa normal, no drainage or sinus tenderness. Oropharynx: Negative findings: lips normal without lesions, buccal mucosa normal, gums healthy, teeth intact, non-carious, palate normal, tongue midline and normal, no uvula deviation, no unilateral tonsillar hypertrophy or abscess and Positive findings: moderate oropharyngeal erythema, tonsillar hypertrophy 1+, exudates present. Neck: Supple, no adenopathy; thyroid symmetric, normal size, no bruits. Lungs: Lungs clear to auscultation. No wheezing, rhonchi, rales.. Heart: RRR without murmur, gallop, or rubs. No ectopy. Health Maintenance List Depression Screening Never done BP Controlled (<130/80) Never done Hepatitis B Vaccine(1 of 3 - 19+ 3-dose series) Never done Influenza Vaccine(1) due on 01/05/2024 Covid-19 Vaccine(2023- season) due on 01/05/2024 Annual PCP Team Chronic Disease Visit due on 04/18/2025 Lipid Screening due on 01/26/2028 DTaP,Tdap,Td Vaccine(3 - Td or Tdap) due on 01/25/2033 (more content not included)... [facility] 12-23-2023 Telephone encounter Note Prescription Refill Information The patient has been identified by name and date of : Yes Caregiver verified no other encounters exist for this prescription request: Yes Caregiver confirmed with patient/requestor that no other refills are due, in the near future, with this provider at this time: Yes The last office visit in the department: 04/25/23 Does the patient have a future office visit with this provider/department: No Requested Prescriptions Pending Prescriptions Disp Refills sertraline (ZOLOFT) 50 mg tablet 90 tablet 0 Sig: Take 1 tablet by mouth once daily. Westley Ko LPN December 23, 2023 12:03 PM [facility] 12-23-2023 Miscellaneous Notes Prescription Refill Information The patient has been identified by name and date of : Yes Caregiver verified no other encounters exist for this prescription request: Yes Caregiver confirmed with patient/requestor that no other refills are due, in the near future, with this provider at this time: Yes The last office visit in the department: 04/25/23 Does the patient have a future office visit with this provider/department: No Requested Prescriptions Pending Prescriptions Disp Refills sertraline (ZOLOFT) 50 mg tablet 90 tablet 0 Sig: Take 1 tablet by mouth once daily. Westley Ko LPN December 23, 2023 12:03 PM documented in this encounter [facility] 04-25-2023 History of Presen t illness Narrative Chief Complaint Patient presents with: Follow Up: 3 month HPI Khurram Cerda is a 37 year old male who presents here today for 3 month follow up of mild anxiety symptoms and difficulty concentrating. Referred to counseling at last OV for mild anxiety symptoms x2 years with GAD7: 6. Patient states that he has been following up with counseling in [place] every other week for total of 4 sessions thus far. States that they have been talking more about symptoms and have not reviewed coping strategies yet. Has not noticed much change yet in his symptoms. Denies SI/HI, panic symptoms. Past medical history, appointments, medications, allergies reviewed. Previous Medical History PAST MEDICAL HISTORY Diagnosis Date MERVIN (generalized anxiety disorder) History of tear of ACL (anterior cruciate ligament) Hypertension Insulin resistance 12/02/2019 Lymphedema Morbid obesity (HCC) s/p bariatric surgery ALICE (obstructive sleep apnea) Psoriasis [facility] Subclinical hypothyroidism Venous incompetence Vitamin D deficiency 12/02/2019 Previous Surgical History PAST SURGICAL HISTORY Procedure Laterality Date FINGER SURGERY HX Left 05/06/2002 5th digit fracture repair KNEE SURGERY HX Left 05/06/2006 ACL repair PAST SURGICAL HISTORY OF 02/2020 GASTRECTOMY, GASTRIC RESTRICTIVE PARTIAL (50 TO 100 CM COMMON CHANNEL) TO LIMIT ABSORPTION Family History FAMILY HISTORY Problem Relation Age of Onset Obesity Mother Diabetes Father Obesity Father Diabetes Maternal Grandfather Obesity Paternal Grandmother Diabetes Paternal Grandfather Coronary Artery Disease Paternal Grandfather Obesity Paternal Grandfather Patient Allergies ALLERGIES Allergen Reactions Bactrim Ds [Sulfame* Hives Nectarine Other: See Comments Fresh: Plums, Cherries and Nectarines cause sore throat Current Medications Current Outpatient Medications on File Prior to Visit Medication Sig risankizumab-rzaa (SKYRIZI) 75 mg/0.83 mL syrg Inject subcutaneously. multivit-min/iron/folic acid/K (BARIATRIC MULTIVITAMINS ORAL) Take by mouth. calcium citrate/vitamin D3 (CALCIUM CITRATE + D ORAL) Take by mouth. thiamine HCl (VITAMIN B-1 ORAL) Take by mouth. BIPAP Initiate BiPAP @ 17/7 cm of water with humidification. Mask (per patient preference) optional chin strap (if indicated) , filters, tubing, humidifier and lifetime supplies. Ferrous Snzvghk-M-Rcpsf Acid (FOLITAB) 105 mg iron- 500 mg-800 mcg TbER Take by mouth compr.stocking,knee,long,large (COMP STOCKING,KNEE,LONG,LARGE) misc 1 Package once daily. Miscellaneous Medical Supply misc Lymphedema wraps to be worn daily on lower extremities. Dx: M79.89 No current facility-administered medications on file prior to visit. Social History Social History Tobacco Use Smoking status: Never Smokeless tobacco: Never Vaping Use Vaping Use: Never used Substance Use Topics Alcohol use: Not Currently Comment: once every 3 months Drug use: No Review of Symptoms REVIEW OF SYSTEMS See HPI EXAM: BP 126/84 Pulse 65 Resp 18 Wt (!) 177.4 kg (391 lb 3.2 oz) SpO2 97% BMI 54.48 kg/m General Appearance: Well appearing, alert, in no acute distress, well-hydrated, well nourished.. PSYCH: Posture and motor behavior: normal posture and motor behavior Dress, grooming, personal hygiene: normal dress and grooming Facial expression: smiling Speech: normal speech Mood: cheerful Coherency and relevance of thought: normal thought processes Memory: normal memory Health Maintenance List BP Controlled (<130/80) Never done Influenza Vaccine(1) due on 11/03/2023 Hepatitis B Vaccine(1 of 3 - 3-dose series) due on 01/26/2024 Covid-19 Vaccine(3 - 2022- season) due on 01/26/2024 Annual PCP Team Chronic Disease Visit due on 01/26/2024 Lipid Screening due on 01/26/2028 DTaP,Tdap,Td Vaccine(3 - Td or Tdap) due on 01/25/2033 Depression Assessment Completed Hepatitis C Screening Completed HIV Screening Completed HPV Vaccine Aged Out Component Latest Ref Rng & Units 01/25/2023 WBC 3.70 - 11.00 k/uL 6.08 RBC 4.20 - 6.00 m/uL 4.47 Hemoglobin 13.0 - 17.0 g/dL 13.1 Hematocrit 39.0 - 51.0 % 40.5 MCV 80.0 - 100.0 fL 90.6 MCH 26.0 - 34.0 pg 29.3 MCHC 30.5 - 36.0 g/dL 32.3 RDW-CV 11.5 - 15.0 % 12.7 Platelet Count 150 - 400 k/uL 223 MPV 9.0 - 12.7 fL 11.0 Neut% % 61.0 Abs Neut (ANC) 1.45 - 7.50 k/uL 3.71 Lymph% % 25.5 Abs Lymph 1.00 - 4.00 k/uL 1.55 Baylor% % 9.2 Abs Baylor <0.87 k/uL 0.56 Eosin% % 2.5 Abs Eosin <0.46 k/uL 0.15 Baso% % 1.3 Abs Baso <0.11 k/uL 0.08 Immature Gran % % 0.5 IMMATURE GRANS (ABS) <0.10 k/uL 0.03 NRBC /100 WBC 0.0 Absolute nRBC <0.01 k/uL <0.01 DTYPE Auto Protein, Total 6.3 - 8.0 g/dL 6.5 Albumin 3.9 - 4.9 g/dL 4.3 Calcium 8.5 - 10.2 mg/dL 9.1 Bilirubin, Total 0.2 - 1.3 mg/dL 0.9 Alkaline Phosphatase 38 - 113 U/L 76 AST 14 - 40 U/L 16 ALT 10 - 54 U/L 22 Glucose 74 - 99 mg/dL 93 BUN 9 - 24 mg/dL 18 Creatinine 0.73 - 1.22 mg/dL 0.84 Sodium 136 - 144 mmol/L 140 Potassium 3.7 - 5.1 mmol/L 4.8 Chloride 97 - 105 mmol/L 105 CO2 22 - 30 mmol/L 25 Anion Gap 9 - 18 mmol/L 10 eGFR >=60 mL/min/1.73m 115 Cholesterol, Total <200 mg/dL 126 Triglyceride <150 mg/dL 41 HDL Cholesterol >39 mg/dL 37 (L) Non HDL Cholesterol <130 mg/dL 89 Fasting Time hrs 13 VLDL Cholesterol <30 mg/dL 8 TC:HDL Ratio <5.10 3.41 LDL Cholesterol <100 mg/dL 81 LDL:HDL Ratio <2.54 2.19 Hemoglobin A1C 4.3 - 5.6 % 5.3 Estimated Average Glucose mg/dL 105 Vitamin D 25 Hydroxy 31.0 - 80.0 ng/mL 35.2 TSH 0.270 - 4.200 mIU/L 1.910 ASSESSMENT/PLAN: 1. MERVIN (generalized anxiety disorder) - ICD9: 300.02, ICD10: F41.1 No improvement with counseling. Mild symptoms. Start low dose SSRI and call with update in 1 month if not improving. - SERTRALINE 50 MG TABLET Maria T Baird MD documented in this encounter [facility] 01-25-2023 Miscellaneous Notes BEHAVIORAL HEALTH SOCIAL WORK CONSULT NOTE Service Date: January 25, 2023 Patient was identified by name and Patient: Khurram Cerda [address] [facility] [address] (home) [phone] (cell) PCP: Maria T Baird MD [address] [facility] [address] Patient identified for [facility] from: PCP Reason for referral: Resources Behavioral Health Resources: Psychology - talk therapy [facility] encounter type: Telephone Encounter, MyChart Message Assessment: Referral made to engage patient experiencing anxiety and to provide therapy resources. [facility] reviewed patient's chart and insurance to identify resources. Patient stated they are experiencing anxiety and stress. Patient denies suicidal or homicidal ideation. Patient identified he is seeking services sooner than [facility]. [facility] send resources to patient per patient's request. Patient was appreciative for the information. Medications: Current Outpatient Medications on File Prior to Visit Medication Sig Ferrous Jobhqce-T-Amruo Acid (FOLITAB) 105 mg iron- 500 mg-800 mcg TbER Take by mouth risankizumab-rzaa (SKYRIZI) 75 mg/0.83 mL syrg Inject subcutaneously. multivit-min/iron/folic acid/K (BARIATRIC MULTIVITAMINS ORAL) Take by mouth. calcium citrate/vitamin D3 (CALCIUM CITRATE + D ORAL) Take by mouth. thiamine HCl (VITAMIN B-1 ORAL) Take by mouth. compr.stocking,knee,long,large (COMP STOCKING,KNEE,LONG,LARGE) misc 1 Package once daily. Miscellaneous Medical Supply misc Lymphedema wraps to be worn daily on lower extremities. Dx: M79.89 BIPAP Initiate BiPAP @ 17/7 cm of water with humidification. Mask (per patient preference) optional chin strap (if indicated) , filters, tubing, humidifier and lifetime supplies. No current facility-administered medications on file prior to visit. Curbside: No Screening Tools: No Substance Use / Abuse: No Outcome / Plan / Referrals: Attempts to Outreach: 1 attempt Referral made: Psychology - External Psychology-External referral type: Therapy Reason for external referral: Wait times at [facility] too long, Patient choice Final Disposition: Resources given Patient Discharged?: Yes Patient reported that caregiver was able to meet their needs today?: Yes Internal Referrals : No Reason for External Referrals : Wait is too long Intervention: Supportive Listening Provided referral information Resources Provided: [facility] Time Spent: 15 minutes HERBIE Werner-S documented in this encounter [facility] 01-25-2023 History of Presen t illness Narrative Chief Complaint Patient presents with: Physical HPI Khurram Cerda is a 37 year old male who presents here today for Above Complaints. HTN: Mr. Cerda indicates that he is feeling well and denies any symptoms referable to elevated blood pressure. Specifically denies headache, chest pain, palpitations, dyspnea, and peripheral edema. He has not been on his Amlodipine in about 7 months. He does not check BP's generally. Khurram likes to exercise by working out at the [employer] 3-4 days per week. He watches his diet for sodium, low fat and low cholesterol most of the time. Last 3 Encounter BP Readings: Date: BP: 01/25/2023 126/86 05/04/2021 134/89 03/13/2021 133/83 ALICE: compliant with BIPAP on a nightly basis. Symptoms well controlled on current settings. Does not need supplies. Psoriasis: Managed through [facility] with [employer]. Has mild rash on left palm today. Otherwise clear today. Not using any other lotions. PHQ-2 / Depression screen He in the past two weeks denies having felt down, depressed, hopeless or with little interest or pleasure in doing things. Patient complaining today of some trouble concentrating and mild anxiety symptoms which has been present for the last 2 years. Would like referral to counseling instead of rx at this time. 01/25/2023 1022 Last Filed Value MERVIN-7 - over the last 2 weeks... Feeling nervous, anxious, or on edge Several days Several days Not being able to stop or control worrying Not at all Not at all Worrying too much about different things Several days Several days Trouble relaxing Several days Several days Being so restless that it is hard to sit still Several days Several days Becoming easily annoyed or irritable Several days Several days Feeling afraid, as if something awful might happen Several days Several days How difficult to do work, care for home, get along with people -- -- MERVIN-2 Total Score 1 1 MERVIN-7 Total Score 6 6 MERVIN-7 Score 6 6 Past medical history, appointments, medications, allergies reviewed. Previous Medical History PAST MEDICAL HISTORY Diagnosis Date History of tear of ACL (anterior cruciate ligament) Hypertension Insulin resistance 12/02/2019 Lymphedema Morbid obesity (HCC) s/p bariatric surgery ALICE (obstructive sleep apnea) Psoriasis [facility] Subclinical hypothyroidism Venous incompetence Vitamin D deficiency 12/02/2019 Previous Surgical History PAST SURGICAL HISTORY Procedure Laterality Date FINGER SURGERY HX Left 05/06/2002 5th digit fracture repair KNEE SURGERY HX Left 05/06/2006 ACL repair PAST SURGICAL HISTORY OF 02/2020 GASTRECTOMY, GASTRIC RESTRICTIVE PARTIAL (50 TO 100 CM COMMON CHANNEL) TO LIMIT ABSORPTION Family History FAMILY HISTORY Problem Relation Age of Onset Obesity Mother Diabetes Father Obesity Father Diabetes Maternal Grandfather Obesity Paternal Grandmother Diabetes Paternal Grandfather Coronary Artery Disease Paternal Grandfather Obesity Paternal Grandfather Patient Allergies ALLERGIES Allergen Reactions Bactrim Ds [Sulfame* Hives Nectarine Other: See Comments Fresh: Plums, Cherries and Nectarines cause sore throat Current Medications Current Outpatient Medications on File Prior to Visit Medication Sig amLODIPine (NORVASC) 10 mg tablet Take 1 tablet by mouth once daily. Ferrous Sfbtbdj-R-Wksfq Acid (FOLITAB) 105 mg iron- 500 mg-800 mcg TbER Take by mouth risankizumab-rzaa (SKYRIZI) 75 mg/0.83 mL syrg Inject subcutaneously. multivit-min/iron/folic acid/K (BARIATRIC MULTIVITAMINS ORAL) Take by mouth. calcium citrate/vitamin D3 (CALCIUM CITRATE + D ORAL) Take by mouth. thiamine HCl (VITAMIN B-1 ORAL) Take by mouth. compr.stocking,knee,long,large (COMP STOCKING,KNEE,LONG,LARGE) misc 1 Package once daily. Miscellaneous Medical Supply misc Lymphedema wraps to be worn daily on lower extremities. Dx: M79.89 BIPAP Initiate BiPAP @ 17/7 cm of water with humidification. Mask (per patient preference) optional chin strap (if indicated) , filters, tubing, humidifier and lifetime supplies. No current facility-administered medications on file prior to visit. Social History Social History Tobacco Use Smoking status: Never Smokeless tobacco: Never Vaping Use Vaping Use: Never used Substance Use Topics Alcohol use: Not Currently Comment: once every 3 months Drug use: No Review of Symptoms REVIEW OF SYSTEMS GENERAL: No weight loss, malaise or fevers HEENT: Negative for frequent or significant headaches, No changes in hearing or vision, no nose bleeds or other nasal problems NECK: Negative for lumps, goiter, pain and significant neck swelling RESPIRATORY: Negative for cough, hemoptysis, wheezing, COPD, dyspnea or shortness of breath CARDIOVASCULAR: Negative for chest pain, leg swelling, hypertension, CHF or palpitations GI: No nausea, vomiting, or diarrhea : No history of dysuria, frequency or incontinence MUSCULOSKELETAL: Negative for joint pain or swelling, back pain or muscle pain SKIN: See HPI PSYCH: See HPI HEMATOLOGY/LYMPHOLOGY: Negative for prolonged bleeding, bruising easily or swollen nodes ENDOCRINE: Negative for cold or heat intolerance, polyuria, polydipsia and goiter NEURO: No history of headaches, syncope, paralysis, seizures or tremors EXAM: BP 126/86 Pulse 88 Resp 16 Wt (!) 180.7 kg (398 lb 6.4 oz) SpO2 97% BMI 55.49 kg/m General Appearance: Well appearing, alert, in no acute distress, well-hydrated, well nourished. Morbidly obese. Skin: mild psoriasis rash on dorsum of left hand. Normal otherwise. . Head: Normocephalic, no masses, lesions, tenderness or abnormalities. Eyes: Anicteric sclera. Pupils are equally round and reactive to light. Extraocular movements are intact. . Ears: External ears normal, canals clear. Nose/Sinuses: Nares normal, septum midline, mucosa normal, no drainage or sinus tenderness. Oropharynx: Lips, mucosa, and tongue normal, teeth and gums normal, oropharynx normal. Neck: Supple, no adenopathy; thyroid symmetric, normal size, no bruits. Lungs: Lungs clear to auscultation. No wheezing, rhonchi, rales.. Heart: RRR without murmur, gallop, or rubs. No ectopy. Abdomen: Normal abdominal exam, Abdomen soft, non-tender. Bowel sounds normal. No masses, organomegaly. Extremities: No deformities, edema, skin discoloration, clubbing or cyanosis. Good capillary refill. . Musculoskeletal: No joint swelling, deformity, or tenderness. Peripheral Pulses: Normal. Lymph Nodes: No cervical lymphadenopathy and No supraclavicular lymphadenopathy. Health Maintenance List Hepatitis B Vaccine(1 of 3 - 3-dose series) Never done BP Controlled (<130/80) Never done Covid-19 Vaccine(3 - Booster for Richie series) due on 06/17/2021 DTaP,Tdap,Td Vaccine(2 - Td or Tdap) due on 10/21/2021 Annual PCP Team Chronic Disease Visit due on 05/04/2022 Depression Assessment Never done Influenza Vaccine(1) due on 01/04/2023 Lipid Screening due on 2023 Hepatitis C Screening Completed HIV Screening Completed HPV Vaccine Aged Out Data reviewed Component Latest Ref Rng & Units 03/13/2021 WBC 3.70 - 11.00 k/uL 7.81 RBC 4.20 - 6.00 m/uL 4.48 Hemoglobin 13.0 - 17.0 g/dL 13.1 Hematocrit 39.0 - 51.0 % 40.7 MCV 80.0 - 100.0 fL 90.8 MCH 26.0 - 34.0 pG 29.2 MCHC 30.5 - 36.0 g/dL 32.2 RDW-CV 11.5 - 15.0 % 12.7 Platelet Count 150 - 400 k/uL 240 MPV 9.0 - 12.7 fL 11.2 Neut% % 62.9 Abs Neut (ANC) 1.45 - 7.50 k/uL 4.90 Lymph% % 26.1 Abs Lymph 1.00 - 4.00 k/uL 2.04 [facility]% % 7.2 Abs [facility] <0.87 k/uL 0.56 Eosin% % 2.6 Abs Eosin <0.46 k/uL 0.20 Baso% % 1.2 Abs Baso <0.11 k/uL 0.09 Nucleated Reds 0 /100 WBC 0.0 Absolute nRBC <0.01 k/uL <0.01 Diff Type Auto Diff Protein, Total 6.3 - 8.0 g/dL 6.6 Albumin 3.9 - 4.9 g/dL 4.3 Calcium 8.5 - 10.2 mg/dL 9.2 Bilirubin, Total 0.2 - 1.3 mg/dL 0.9 Alkaline Phosphatase 38 - 113 U/L 76 AST 14 - 40 U/L 14 Glucose 74 - 99 mg/dL 86 BUN 9 - 24 mg/dL 20 Creatinine 0.73 - 1.22 mg/dL 0.68 (L) Sodium 136 - 144 mmol/L 140 Potassium 3.7 - 5.1 mmol/L 4.2 Chloride 97 - 105 mmol/L 105 CO2 22 - 30 mmol/L 25 Anion Gap 9 - 18 mmol/L 10 ALT 10 - 54 U/L 18 eGFR- >60 eGFR-All Other Races . >60 Vitamin D 25 Hydroxy 31.0 - 80.0 ng/mL 37.1 ASSESSMENT/PLAN: 1. Annual physical exam - ICD9: V70.0, ICD10: Z00.00 (primary diagnosis) - Counseled on healthy diet and regular exercise - Discussed need for and benefit of weight loss. BMI 55.49 kg/(m^2) - Follow up for annual exam in one year - CBC + DIFF - COMP METABOLIC PANEL - LIPID PANEL, NONFASTING - VITAMIN D 25 HYDROXY - HGB A1C - LIPID PANEL BASIC 2. Primary hypertension - ICD9: 401.9, ICD10: I10 - Controlled without rx. - discontinue amlodipine. - Recommend home blood pressure monitoring, to bring results to next visit - Encouraged sodium restriction, DASH or Mediterranean diet - Recommend regular aerobic exercise 3. ALICE (obstructive sleep apnea) - ICD9: 327.23, ICD10: G47.33 Controlled on nightly Bipap. 4. Psoriasis - ICD9: 696.1, ICD10: L40.9 Mild rash on left hand today. Discussed skin care. Call if worsening. F/u with dermatology for Azael. 5. Severe sleep apnea - ICD9: 780.57, ICD10: G47.30 6. Subclinical hypothyroidism - ICD9: 244.8, ICD10: E03.8 - Instructed patient on importance of taking on an empty stomach either first thing in the morning or at bedtime. - check TSH today - TSH BLD 7. Morbid obesity (HCC) - ICD9: 278.01, ICD10: E66.01 Weight decreasing s/p bariatric surgery - Behavioral intervention - HGB A1C 8. S/P bariatric surgery - ICD9: V45.86, ICD10: Z98.84 Continue with bariatric diet and exercise to promote weight loss. - VITAMIN D 25 HYDROXY 9. Vitamin D deficiency - ICD9: 268.9, ICD10: E55.9 Recheck level today. 10. MERVIN (generalized anxiety disorder) - ICD9: 300.02, ICD10: F41.1 Referral to counseling for new finding of mild anxiety symptoms. Discussed coping. Call if worsening symptoms. - CONSULT TO PRIMARY [facility] ADULT 11. Encounter for immunization - ICD9: V03.89, ICD10: Z23 - TDAP VACCINE, AGE 7+ YR (ADACEL, BOOSTRIX) Maria T Baird MD documented in this encounter [facility] 09-08-2021 Miscellaneous Notes Patient has been identified by name and date of : Yes Patient phones for refill(s): Pending Prescriptions Disp Refills AMLODIPINE 10 MG TABLET 90 tablet 1 Sig: Take 1 tablet by mouth once daily. KATHARINE: No Date of last office visit in primary care: SHARMAINE 05/04/2021 No appointment scheduled Last 2 Encounter Wt Readings: Date: Wt: 05/04/2021 187.3 kg (413 lb) 03/13/2021 184.2 kg (406 lb) Please advise. Thank you. SERENITY Christina documented in this encounter [facility] 08-02-2017 History of Past i llness Narrative Problem Noted Date Resolved Date Obesity, Class III, BMI 40-49.9 (morbid obesity) 08/02/2017 12/11/2017 documented as of this encounter (statuses as of 09/08/2021) [facility]2018 History of Past illness Narrative* Problem Noted Date Diagnosed Date Resolved Date Obesity, Class III, BMI 40-4 9.9 (morbid obesity) 08/02/2017 12/11/2017 documented as of this encounter (statuses as of 01/26/2023) [facility] History of Past illness Narrative* Problem Noted Date Diagnosed Date Resolved Date Obesity, Class III, BMI 40-4 9.9 (morbid obesity) 08/02/2017 12/11/2017 documented as of this encounter (statuses as of 01/26/2023) [facility] History of Past illness Narrative* Problem Noted Date Diagnosed Date Resolved Date Obesity, Class III, BMI 40-4 9.9 (morbid obesity) 08/02/2017 12/11/2017 documented as of this encounter (statuses as of 04/26/2023) [facility] information [facility] Work Phone: Evaluation note* Diagnosis Annual physical exam- Primary Routine general medical examination at a health care facility Primary hypertension Unspecified essential hypertension ALICE (obstructive sleep apnea) Obstructive sleep apnea (adult) (pediatric) Psoriasis Other psoriasis Severe sleep apnea Subclinical hypothyroidism Other specified acquired hypothyroidism Morbid obesity (HCC) Morbid obesity S/P bariatric surgery Bariatric surgery status Vitamin D deficiency Unspecified vitamin D deficiency MERVIN (generalized anxiety disorder) Generalized anxiety disorder Encounter for immunization Need for other specified prophylactic vaccination against single bacterial disease [facility] Diagnosis MERVIN (generalized anxiety disorder)- Primary Generalized anxiety disorder [facility] Diagnosis Preoperative examination- Primary Preoperative examination, unspecified Morbid obesity (HCC) Morbid obesity Essential hypertension Unspecified essential hypertension ALICE (obstructive sleep apnea) Obstructive sleep apnea (adult) (pediatric) Insulin resistance Dysmetabolic Syndrome X Subclinical hypothyroidism Other specified acquired hypothyroidism Psoriasis Other psoriasis Class 3 severe obesity with serious comorbidity and body mass index (BMI) of 60.0 to 69.9 in adult, unspecified obesity type (HCC) MERVIN (generalized anxiety disorder) Generalized anxiety disorder documented in this encounter [facility] Summary Purpose Family History No Family History Records Found Relationship Condition Age at Onset Recorded Date/T gi Unknown Family History?- Unknown January 052019 4:49pm Family History?Diabetes Unknown Bernardo marquez 2019 12:08am Family History?Diabe con, Heart Disease, - Unknown January 30, 2020 4:49pm Advance Directives No Advanced Directives Records FoundDocuments on File Type Date Recorded Patient Sports Instructor Expl anation Advance Directive(s) 02/26/2020 12:16 PM Advance Directive Response Recorded Date/ Time Living Will No April 05 8:05am Power of Roving Inspector No April 05, 2020 8:05am Chief Complaint and Reason for Visit Chief Complaint SKIN Additional Source Comments (unrecognized sect ion and content) No Status Records FoundNo Status Records FoundNo Status Records Found INFORMATION SOURCE (unrecogn ized section and content) DATE CREATED AUTHOR 02/28/2018 [facility] DATE CREATED AUTHOR AUTHOR'S ORGANIZ ATION 09/12/2022 [facility] DATE CREATED AUTHOR AUTHOR'S ORGANIZ ATION 04/25/2024 [facility] Source Comments (unrecognize d section and content) In the event this informatio n is protected by the Federal Confidentiality of Alcohol and Drug Abuse Patient Records regulations: The Federal rules restrict any use of the information to criminally investigate or prosecute any alcohol or drug abuse patient.[facility] the event this information is protected by the Federal Confidentiality of Alcohol and Drug Abuse Patient Records regulations: The Federal rules restrict any use of the information to criminally investigate or prosecute any alcohol or drug abuse patient.[facility] the event this information is protected by the Federal Confidentiality of Alcohol and Drug Abuse Patient Records regulations: The Federal rules restrict any use of the information to criminally investigate or prosecute any alcohol or drug abuse patient.[facility] the event this information is protected by the Federal Confidentiality of Alcohol and Drug Abuse Patient Records regulations: The Federal rules restrict any use of the information to criminally investigate or prosecute any alcohol or drug abuse patient.[facility] the event this information is protected by the Federal Confidentiality of Alcohol and Drug Abuse Patient Records regulations: The Federal rules restrict any use of the information to criminally investigate or prosecute any alcohol or drug abuse patient.[facility] Reason for Visit (unrecogniz ed section and content) Reason Onset Date Comments Refill Request 09/07/2021 Reason Comments Consult Patient Outreach S W Reason Comments Physical Reason Comments Follow Up 3 month Reason Onset Date Comments Refill Request 12/22/2023 Care Teams (unrecognized sec tion and content) Special Assemblies Supervisor Relationship Specialty Start Date End Date Maria T Baird MD [address] [place] [address] PCP - General Family Practice 02/20/16 Special Assemblies Supervisor Relationship Specialty Start Date End Date Maria T Baird MD [address] [facility] [place] [address] PCP - General Family Medicine 02/20/16 Special Assemblies Supervisor Relationship Specialty Start Date End Date Maria T Baird MD [address] [facility] [place] [address] PCP - General Family Medicine 02/20/16 Special Assemblies Supervisor Relationship Specialty Start Date End Date Maria T Baird MD [address] [facility] [place] [address] PCP - General Family Medicine 02/20/16 Special Assemblies Supervisor Relationship Specialty Start Date End Date Maria T Baird MD [address] [place] [address] PCP - General Family Medicine 02/20/16 Goals (unrecognized section and content) Goals may be documented in a n alternate section FOR RECORDS PERTAINING TO PATIENTS WHO ARE OR HAVE BEEN ENROLLED IN A CHEMICAL DEPENDENCY/SUBSTANCEABUSE PROGRAM, SOME INFORMATION MAY BE OMITTED. This clinical summary was aggregated from multiple sources. Caution should be exercised in using it in the provision of clinical care. This summary normalizes information from multiple sources, and as a consequence, information in this document may materially change the coding, format and clinical context of patient data. In addition, data may be omitted in some cases. CLINICAL DECISIONS SHOULD BE BASED ON THE PRIMARY CLINICAL RECORDS. [facility] provides no warranty or guarantee of the accuracy or completeness of information in this document.
[2024-10-27 06:08] LABS: QNTFERON TB Mitogen Value > 10.00 IU/mL (.); QNTFERON TB Nil Value 0.05 IU/mL (.); QNTFERON TB1+ Ag Value 0.05 IU/mL (.); QNTFERON TB2+ Ag Value 0.05 IU/mL (.); QNTIFERON TB Positive Criteria Negative (Negative)
== END | disposition home or self-care (01) ==
LOC: MTLAB 15:06
PROVIDERS: PCP Family Medicine; Referring Provider Physician Assistant; Visit Provider Physician Assistant
DX: L40.0 Psoriasis vulgaris (principal)
CPT/HCPCS: 36415; 86480